=== PATIENT | female | born 1995 | race Caucasian/White ===

== ENCOUNTER 2019-12-05 08:18 | Emergency (ER) | payer OTHER, SELFPAY ==
[2019-12-05 08:43] VITALS: BP 125/84; PULSE 98; RESP 16; TEMP 36.8; O2SAT 98
--- NOTE | 2019-12-05 08:43 | ED.GENADULT ---
HPI - General Adult General Chief complaint: Upper Respiratory Infection Stated complaint: Possible Sinus Infection Time Seen by Provider: 12/05/19 08:55 Source: patient and RN notes reviewed Mode of arrival: ambulatory Limitations: no limitations History of Present Illness HPI narrative: This is a 24 years old female presented office for evaluation of possible sinus infection. Onset about 5 days ago. Symptoms include cough, congestion,and chest tightness when she cough.She has tried Mucinex, DayQuil, NyQuil with no relief. She does not smoke. Related Data Allergies Allergy/AdvReac Type Severity Reaction Status Date / Time No Known Allergies Allergy Verified 12/05/19 08:45 Review of Systems Review of Systems: Narrative: CONSTITUTIONAL: Denies fever; reports feeling malaise and achy EYES: Denies redness, discharge. ENT: Reports congestion, ears pressure CARDIOVASCULAR: Denies chest pain RESPIRATORY: Reports cough with pain in shoulder blade when she cough/takes a deep breathe GASTROINTESTINAL: Denies abdominal pain, nausea, vomiting, diarrhea. GENITOURINARY: Denies urinary symptoms or discharge SKIN: Denies rash MUSCULOSKELETAL: Denies acute back pain NEUROLOGIC: Denies lightheaded PMFSH Social History Social History (Updated 12/05/19 @ 08:57 by MANDEEP Byers) Smoking status: Never smoker Comments At time of signature, I agree with nursing past medical, surgical, social and family history. There is no relevant family history pertinent to the presenting complaint. Exam Narrative: Exam Narrative: GENERAL: This is a well-nourished, well-developed patient, in no apparent distress. EYES: Sclera clear/white. Vision is grossly intact. EARS: External ears normal, auditory canals clear and without drainage, TMs noted fluid level without perforation. Hearing grossly intact. NOSE: External nose normal with no obvious nasal discharge, nares without redness, no rhinorrhea. THROAT: Mucous membranes moist, posterior pharynx clear. NECK: Neck supple, non-tender without lymphadenopathy, masses or thyromegaly. CARDIOVASCULAR: Regular rate and rhythm without murmurs, gallops, or rubs. RESPIRATORY: Clear to auscultation except in the right lower lobe sound diminished. Breath sounds equal bilaterally. No wheezes, rales, or rhonchi. GASTROINTESTINAL: Abdomen soft, non-tender, nondistended. Bowel sounds are active. No hepato-splenomegaly, or palpable masses. No guarding. SKIN: warm, intact with no suspicious lesions or rash, good texture and turgor. NEURO: awake, alert, and oriented to person, place and time. There were no obvious focal neurologic abnormalities. Steady gait Conner Coma Scale Eye Opening: Spontaneous 4 Conner Coma Scale Motor: Obeys Commands 6 Conner Coma Scale Verbal: Oriented 5 Course Vital Signs Vital signs: Vital Signs Temperature 98.3 F 12/05/19 08:43 Pulse Rate 98 12/05/19 08:43 Respiratory Rate 16 12/05/19 08:43 Blood Pressure 125/84 12/05/19 08:43 Pulse Oximetry 98 12/05/19 08:43 Temperature 98.3 F 12/05/19 08:43 Pulse Rate 98 12/05/19 08:43 Respiratory Rate 16 12/05/19 08:43 Blood Pressure 125/84 12/05/19 08:43 Pulse Oximetry 98 12/05/19 08:43 Medical Decision Making MDM Narrative Medical decision making narrative: Discharge instructions reviewed with patient, as well as provided in writing per nursing staff. The instructions also include specific and strict return/GO TO THE ER as well as f/u information. All questions have been answered, and the patient deny any further questions with discharge and discharge plan. Differential Diagnosis Differential Diagnosis: pneumonia, Allergic Rhinitis, Upper respiratory cough syndrome, Pharyngitis, Sinusitis, Bronchitis, otitis media, viral URI, Asthma/reactive airway disease, influenza Vital Signs Vital Signs: Vital Signs Temperature 98.3 F 12/05/19 08:43 Pulse Rate 98 12/05/19 08:43 Respiratory R
== END 2019-12-05 09:29 | disposition home or self-care (01) ==
PROVIDERS: Emergency Provider Nurse Practitioner
DX: J06.9 Acute upper respiratory infection, unspecified (principal)
CPT/HCPCS: 99203; G0463

== ENCOUNTER 2021-01-01 08:12 | Emergency (ER) | payer OTHER, SELFPAY ==
--- NOTE | ~2021-01-01 | XR_ITS ---
EXAMINATION: XR chest 2V DATE: 01/01/2021 08:48 INDICATION: Cough. Tachycardia. TECHNIQUE: Frontal and lateral views of the chest were obtained. COMPARISON: None. FINDINGS: The chest demonstrates clear lungs without pneumonia, pleural effusion, or pneumothorax. Th e heart size is normal. There is likely a small hiatal hernia. IMPRESSION: 1. Small hiatal hernia. Reviewed, dictated and finalized at location A. IMPRESSION: 1. Small hiatal hernia.
--- NOTE | 2021-01-01 08:19 | ED.GENADULT ---
HPI - General Adult General Chief complaint: Upper Respiratory Infection Stated complaint: sinus inf,cough Time Seen by Provider: 01/01/21 08:39 Source: patient Mode of arrival: ambulatory Limitations: no limitations History of Present Illness HPI narrative: 25-year-old female patient presents to the [facility] with complaints of cold symptoms for the past week and half to 2 weeks. Patient states she has had some drainage to the back of her throat causing some throat irritation but denies sore throat. Denies any ear pain. Denies any fevers, body aches or chills. Patient states she has had a cough that is periodic throughout the day but denies any production. Patient denies any chest pain or shortness of breath. Patient states she is a little sore when she coughs in her chest but thinks is because she is just been coughing for a while. Patient states she has been taking [id number] Tylenol Cold and flu for symptoms. Patient states she has taken Claritin once or twice since her symptoms started. Patient denies any abdominal pain, nausea, vomiting or diarrhea. Patient was tested for Covid 2 to 3 days ago and states she was negative at that time. Related Data Home Medications Medication Instructions Recorded Confirmed buspirone 5 mg PO DAILY 01/01/21 01/01/21 diltiazem HCl 120 mg PO DAILY 01/01/21 01/01/21 metoprolol succinate 25 mg PO DAILY 01/01/21 01/01/21 omeprazole 20 mg PO BID 01/01/21 01/01/21 Allergies Allergy/AdvReac Type Severity Reaction Status Date / Time Pertussis Vaccines Allergy Rash Verified 01/01/21 08:29 Review of Systems Review of Systems: Narrative: CONSTITUTIONAL: Denies fever, chills, or sweats. EYES: Denies visual changes, redness, or discharge. ENT: Positive rhinorrhea, congestion, denies sore throat, or otalgia. CARDIOVASCULAR: Denies chest pain, palpitations, or edema. RESPIRATORY: Positive cough, denies dyspnea. GASTROINTESTINAL: Denies abdominal pain, nausea, vomiting, or diarrhea. GENITOURINARY: Denies dysuria or hematuria. SKIN: Denies rash or itching. MUSCULOSKELETAL: Denies back pain, joint pain, or myalgia. NEUROLOGIC: Denies headache, numbness, or weakness. PSYCHIATRIC: Denies anxiety or depression. [facility] Past Medical History Medical History (Updated 01/01/21 @ 09:06 by MANDEEP Mcgowan) Anxiety AVNRT (AV jerry re-entry tachycardia) GERD (gastroesophageal reflux disease) Tonsillectomy planned Surgical History Surgical History (Updated 01/01/21 @ 08:37 by MANDEEP Mcgowan) History of Social History Social History Smoking status: Never smoker Comments At the time of my signature I agree with nursing past medical history, surgical, social, and family history. There is no relevant family history pertinent to the presenting complaint. Exam Narrative: Exam Narrative: GENERAL: Well-appearing, well-nourished, and in no acute distress. HEAD: Normocephalic, atraumatic. EYES: PERRLA and EOMI. ENT: Nares with erythema and edema noted bilaterally, no rhinorrhea or epistaxis. Mucous membranes moist. Posterior pharynx no erythema or tonsillar enlargement. No exudates or lesions present. Bilateral TMs are clear with no erythema or foreign bodies in the canal. NECK: Supple. No lymphadenopathy CHEST: Clear to auscultation. No respiratory distress. Patient able talk clear complete sentences. No tripoding noted. HEART: Regular rate and rhythm. No murmur heard. Normal peripheral pulses. ABDOMEN: Soft, nontender, nondistended, normal active bowel sounds. EXTREMITIES: Normal range of motion. No edema. SKIN: Warm, dry, no rash. NEURO: No focal deficits. Alert and oriented x3. Course Reevaluation(s) Reevaluation #1: Reevaluated patient after her x-ray resulted. Notified her that her x-ray does show possible hiatal hernia however there is no obvious pneumonia noted. Discussed with her that her rapid Covid test
[2021-01-01 08:26] VITALS: BP 134/92; PULSE 124; RESP 20; TEMP 36.8; O2SAT 98
[2021-01-02 12:59] LABS: SARS-CoV-2 RNA PCR Negative
== END 2021-01-01 09:20 | disposition home or self-care (01) ==
PROVIDERS: Emergency Provider Nurse Practitioner Family
DX: J30.9 Allergic rhinitis, unspecified (principal); Z20.822 Contact with and (suspected) exposure to COVID-19; F41.9 Anxiety disorder, unspecified; K21.9 Gastro-esophageal reflux disease without esophagitis
CPT/HCPCS: 71046; 87426; 99213; C9803; G0463; U0003; U0005

== ENCOUNTER 2021-05-15 11:10 | Emergency (ER) | payer OTHER, SELFPAY ==
[2021-05-15 11:17] VITALS: BP 139/80; PULSE 95; RESP 16; TEMP 37.1; O2SAT 100
--- NOTE | 2021-05-15 12:08 | ED.FEMALEGU ---
HPI - Female Genitourinary General Chief complaint: Urogenital-Female Stated complaint: Possible UTI Time Seen by Provider: 05/15/21 12:10 Source: patient, RN notes reviewed and old records reviewed Mode of arrival: ambulatory Limitations: no limitations History of Present Illness HPI Narrative: 26 year old female who presents to [facility] care with 2 day history of urinary pain and burning, with urgency and decrease output.Patient states that she took some Azo yesterday for her urinary discomfort and has been drinking cranberry juice. Patient states that she has some lower abdominal discomfort and some right sided back pain also, denies any fevers, chills or sweats. Patient denies any vaginal discharge, bleeding or itching, no concern for STD exposure. MD elicited complaint: dysuria, UTI and flank pain (right) Related Data Home Medications Medication Instructions Recorded Confirmed omeprazole 20 mg PO BID PRN 01/01/21 05/15/21 cetirizine [Zyrtec] 10 mg PO DAILY PRN 05/15/21 05/15/21 flecainide 100 mg PO Q12H 05/15/21 05/15/21 fluoxetine 10 mg PO DAILY 05/15/21 05/15/21 Allergies Allergy/AdvReac Type Severity Reaction Status Date / Time Pertussis Vaccines Allergy Rash Verified 01/01/21 08:29 Review of Systems Review of Systems: Narrative: CONSTITUTIONAL: Denies fever, chills, or sweats. EYES: Denies visual changes, redness, or discharge. ENT: Denies rhinorrhea, congestion, sore throat, or otalgia. CARDIOVASCULAR: Denies chest pain, palpitations, or edema. RESPIRATORY: Denies cough or dyspnea. GASTROINTESTINAL: Positive lower abdominal pain,no nausea, vomiting, or diarrhea. GENITOURINARY: Positive for dysuria or hematuria. SKIN: Denies rash or itching. MUSCULOSKELETAL: Reports right sided back pain,no joint pain, or myalgia. NEUROLOGIC: Denies headache, numbness, or weakness. PSYCHIATRIC:Positive history of anxiety or depression. All systems reviewed & are unremarkable except as noted in HPI and below PMFSH Past Medical History Medical History (Updated 05/16/21 @ 14:52 by Halie Doyle NP) Anxiety AVNRT (AV jerry re-entry tachycardia) GERD (gastroesophageal reflux disease) Surgical History Surgical History (Updated 05/16/21 @ 14:47 by Halie Doyle NP) History of History of cholecystectomy History of tonsillectomy Family History Family History (Updated 05/16/21 @ 14:48 by Halie Doyle NP) Other No significant family history Social History Social History (Updated 05/16/21 @ 14:49 by Halie Doyle NP) Smoking status: Never smoker Alcohol intake: current Alcohol use details: rare social Substance use: never Living arrangements: with family Gender identity (if verbalized by the patient): Female Comments At time of signature, agree with nursing past medical, surgical, social and family history. There is no relevant family history pertinent to the presenting complaint Exam Narrative: Exam Narrative: GENERAL: Well-appearing, well-nourished, and in no acute distress. HEAD: Normocephalic, atraumatic. EYES: PERRLA and EOMI. ENT: Nares clear, no rhinorrhea or epistaxis. Mucous membranes moist. NECK: Supple.no lymphadenopathy CHEST: Clear to auscultation. No respiratory distress.SAO2 100% on room air HEART: Regular rate and rhythm. No murmur heard. Normal peripheral pulses. ABDOMEN: Soft, tender suprapubic, nondistended, normal active bowel sounds, right flank pain on exam, negative for McBurney point tenderness, positive dysuria with microscopic hematuria. EXTREMITIES: Normal range of motion. No edema. SKIN: Warm, dry, no rash. NEURO: No focal deficits. Alert and oriented x3. Course Vital Signs Vital signs: Vital Signs Temperature 37.1 C 05/15/21 11:17 Pulse Rate 95 05/15/21 11:17 Respiratory Rate 16 05/15/21 11:17 Blood Pressure 139/80 05/15/21 11:17 Pulse Oximetry 100 05/15/21 11:17 Temperature 37.1 C 05/15/21 11:17 Pulse Rat
== END 2021-05-15 12:22 | disposition home or self-care (01) ==
PROVIDERS: Emergency Provider Registered Nurse
DX: N39.0 Urinary tract infection, site not specified (principal); G21.9 Secondary parkinsonism, unspecified; F41.9 Anxiety disorder, unspecified
CPT/HCPCS: 81003; 87077; 87086; 87088; 87186; 99213; G0463

== ENCOUNTER 2021-07-05 08:26 | Emergency (ER) | payer OTHER, SELFPAY ==
--- NOTE | 2021-07-05 08:31 | ED.SOB ---
HPI - SOB/Dyspnea General Chief Complaint: Upper Respiratory Infection Stated Complaint: SOB, tightness of chest, rapid Heart rate Time Seen by Provider: 07/05/21 08:50 Source: patient and RN notes reviewed Mode of arrival: ambulatory Limitations: no limitations History of Present Illness HPI Narrative: 26-year-old female presents with concern for episode of shortness of breath, tachycardia, chest pain. 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 Reports typical episodes last only several minutes, reports she had an episode just prior to arrival that lasted nearly 10 minutes. Reports she was at a grocery store, felt the episode coming on. Reports she drove here and on the way the SVT stopped. Reports she tried doing breathing exercises. She denies current fast heart rate, shortness of breath, chest pain. Reports she has an appointment today with an transfer operator to discuss a cardiac ablation. MD elicited complaint: shortness of breath Related Data Home Medications Medication Instructions Recorded Confirmed omeprazole 20 mg PO BID PRN 01/01/21 05/15/21 cetirizine [Zyrtec] 10 mg PO DAILY PRN 05/15/21 05/15/21 flecainide 100 mg PO Q12H 05/15/21 05/15/21 fluoxetine 10 mg PO DAILY 05/15/21 05/15/21 Allergies Allergy/AdvReac Type Severity Reaction Status Date / Time Pertussis Vaccines Allergy Rash Verified 01/01/21 08:29 Review of Systems Review of Systems: CONSTITUTIONAL: Denies malaise, chills, sweats, or fever. CARDIOVASCULAR: Denies current chest pain, palpitations, or edema. RESPIRATORY: Denies cough or dyspnea. PSYCHIATRIC: Denies anxiety All systems reviewed & are unremarkable except as noted in HPI and below PMFSH Past Medical History Medical History (Updated 07/05/21 @ 09:04 by Padmini Wayne NP) Anxiety AVNRT (AV jerry re-entry tachycardia) GERD (gastroesophageal reflux disease) Surgical History Surgical History (Updated 05/16/21 @ 14:47 by Halie Doyle NP) History of History of cholecystectomy History of tonsillectomy Family History Family History (Updated 05/16/21 @ 14:48 by Halie Doyle NP) Other No significant family history Social History Social History (Updated 05/16/21 @ 14:49 by Halie Doyle NP) Smoking status: Never smoker Alcohol intake: current Alcohol use details: rare social Substance use: never Gender identity (if verbalized by the patient): Female Comments At time of signature, agree with nursing past medical, surgical, social and family history. There is no relevant family history pertinent to the presenting complaint Exam Narrative: GENERAL: Well-appearing, well-nourished, and in no acute distress. HEAD: Normocephalic EYES: PERRLA, conjunctivae clear ENT: Mucous membranes moist. NECK: Supple. CHEST: Clear to auscultation, breath sounds equal. No wheezing, rhonchi, rales, or stridor. No respiratory distress, speaks in full sentences. HEART: Regular rate and rhythm. No murmur heard. SKIN: Warm, dry, no visible rash. NEURO: Alert and oriented x3. PSYCH: Tearful mood and normal affect Course Course Emergency Course: Discussed transfer to emergency department for further evaluation. Patient chooses at this time to not seek care in the emergency department. She understands reasons to go to the emergency department if symptoms return. Discussed Patient is aware of, understands and agrees to treatment plan. Anticipatory guidance given. Patient agrees to follow-up as directed and is aware of reasons to seek care at the emergency department. Portions of this record may have been created with voice recognition software Vital Signs Vital signs: Reviewed. MDM - SOB/Dyspnea MDM Narrative Medical decision making narrative: Exam findings and EKG show no acute concerns or changes; patient is non-toxic appearing and is in no distress. Pat
[2021-07-05 08:33] VITALS: BP 143/78; PULSE 80; RESP 18; TEMP 36.6; O2SAT 100
--- NOTE | 2021-07-05 08:52 | ECG_ITS ---
Measurements Intervals [place] Rate: 81 P: 18 MT: 153 QRS: 23 QRSD: 87 T: 32 QT: 343 QTc: 398 Interpretive Statements SINUS RHYTHM BASELINE ARTIFACT- I, II, III, AVR, AVL, AVF, V1-V3 NORMAL ECG Electronically Signed On 07-05-2021 9:57:15 CDT by Jeremy Dan D.O.
== END 2021-07-05 09:10 | disposition home or self-care (01) ==
PROVIDERS: Emergency Provider Nurse Practitioner
DX: I47.1 Supraventricular tachycardia (principal); R06.02 Shortness of breath; R07.9 Chest pain, unspecified
CPT/HCPCS: 93005; 99213; G0463

== ENCOUNTER 2022-01-16 18:57 | Emergency (ER) | payer OTHER, SELFPAY ==
[2022-01-16 19:09] VITALS: BP 142/86; PULSE 74; RESP 18; TEMP 36.7; O2SAT 100
--- NOTE | 2022-01-16 20:03 | ED.BACK ---
HPI - Back Pain/Injury General Chief Complaint: Back Pain/Injury Stated Complaint: left arm injury Time Seen by Provider: 01/16/22 20:03 Source: patient and RN notes reviewed Mode of arrival: ambulatory Limitations: no limitations History of Present Illness HPI Narrative: 18-year-old female presents concern for left shoulder area pain, stinging that radiates down the left arm and she denies any direct injury or trauma. She reports symptoms started when she was pushing up a heavy load of laundry upstairs and she felt a stinging pain. She did not hyperextend or twist her arm or shoulder. She denies any intervention since then. She reports her digits 4 and 5 of the hand feel like they are asleep . MD elicited complaint: back pain Related Data Home Medications Medication Instructions Recorded Confirmed omeprazole 20 mg PO BID PRN 01/01/21 01/16/22 fluoxetine 10 mg PO DAILY 05/15/21 01/16/22 Allergies Allergy/AdvReac Type Severity Reaction Status Date / Time Pertussis Vaccines Allergy Rash Verified 01/16/22 19:48 Review of Systems Review of Systems: CONSTITUTIONAL: Denies malaise, chills, sweats, or fever. CARDIOVASCULAR: Denies chest pain, palpitations, or edema. RESPIRATORY: Denies cough or dyspnea. SKIN: Denies rash or itching. MUSCULOSKELETAL: Reports left shoulder pain that radiates down the arm and hand causing tingling in the hand NEUROLOGIC: Denies weakness, or headache. All systems reviewed & are unremarkable except as noted in HPI and below PMFSH Past Medical History Medical History (Updated 01/16/22 @ 20:07 by Padmini Wayne NP) Anxiety AVNRT (AV jerry re-entry tachycardia) GERD (gastroesophageal reflux disease) Surgical History Surgical History (Updated 05/16/21 @ 14:47 by Halie Doyle NP) History of History of cholecystectomy History of tonsillectomy Family History Family History (Updated 05/16/21 @ 14:48 by Halie Doyle NP) Other No significant family history Social History Social History (Updated 05/16/21 @ 14:49 by Halie Doyle NP) Smoking status: Never smoker Alcohol intake: current Alcohol use details: rare social Substance use: never Gender identity (if verbalized by the patient): Female Comments At time of signature, agree with nursing past medical, surgical, social and family history. There is no relevant family history pertinent to the presenting complaint Exam Narrative: GENERAL: Well-appearing, well-nourished, and in no acute distress. HEAD: Normocephalic, atraumatic. EYES: PERRLA, conjunctivae clear NECK: Supple. CHEST: Speaks in full sentences. No respiratory distress. HEART: Regular rate and rhythm. Normal and equal peripheral pulses. EXTREMITIES: Right upper extremity has normal strength and sensation, normal range of motion. No edema or ecchymosis. 5/5 strength with shoulder abduction, abduction, arm pain and extension and flexion. Normal sensation with sensitivity to light touch and pain. No point tenderness. No open wounds, no skin tenting, no devitalized tissue or atrophy, no trophic changes, no obvious deformity, alignment normal, nearby joints and structures intact. Distal pulses palpable and equal bilaterally, skin warm, dry, pink. Capillary refill less than 3 seconds. SKIN: Warm, dry, no rash. NEURO: Alert and oriented x3. PSYCH: Normal mood and affect Course Course Emergency Course: Patient is aware of diagnosis, understands and agrees to treatment plan. Anticipatory guidance given. Patient agrees to follow-up as directed and is aware of reasons to seek care at the emergency department. Portions of this record may have been created with voice recognition software Level of Care: Express Care Visit Vital Signs Vital signs: Vital Signs Temperature 98.0 F 01/16/22 19:09 Pulse Rate 74 01/16/22 19:09 Respiratory Rate 18 01/16/22 19:09 Blood Pressure 142/86 H 01/16/22 19:09 Pulse Oximetry 100 0
== END 2022-01-16 20:11 | disposition home or self-care (01) ==
PROVIDERS: Emergency Provider Nurse Practitioner
DX: M62.838 Other muscle spasm (principal); K21.9 Gastro-esophageal reflux disease without esophagitis; F41.9 Anxiety disorder, unspecified
CPT/HCPCS: 99213; G0463

== ENCOUNTER 2024-07-22 08:33 | Emergency (ER) | payer OTHER, SELFPAY ==
[2024-07-22 08:40] VITALS: BP 129/77; PULSE 87; RESP 16; TEMP 36.8; O2SAT 100
--- NOTE | 2024-07-22 09:04 | ED.URI ---
HPI - URI/Sore Throat General Chief Complaint: Upper Respiratory Infection Stated Complaint: head congestion/throat Time Seen by Provider: 07/22/24 09:04 Source: patient Mode of arrival: ambulatory Limitations: no limitations History of Present Illness HPI Narrative: 29-year-old female presents with complaint of sore throat, nasal congestion, postnasal drainage, sinus pressure, sinus headaches, left ear pain for 10 days. Taking [id number] allergy and sinus medication with no relief of symptoms. Afebrile. All systems reviewed and negative except as noted above. Related Data Allergies Allergy/AdvReac Type Severity Reaction Status Date / Time Pertussis Vaccines Allergy Rash Verified 07/22/24 09:13 Review of Systems Review of Systems: CONSTITUTIONAL: Denies fever, chills, or sweats. reports fatigue. EYES: Denies visual changes, redness, or discharge. ENT: Reports rhinorrhea, congestion, sore throat, left ear pain CARDIOVASCULAR: Denies chest pain, palpitations, or edema. RESPIRATORY: Denies cough or dyspnea. GASTROINTESTINAL: Denies abdominal pain, nausea, vomiting, or diarrhea. GENITOURINARY: Denies dysuria or hematuria. SKIN: Denies rash or itching. MUSCULOSKELETAL: Denies back pain, joint pain, or myalgia. NEUROLOGIC: Denies headache, numbness, or weakness. PSYCHIATRIC: Denies anxiety or depression. All other systems reviewed are negative, except as documented in HPI. [facility] Past Medical History Medical History (Updated 07/22/24 @ 09:21 by Norma Fernandez NP) Anxiety AVNRT (AV jerry re-entry tachycardia) GERD (gastroesophageal reflux disease) Surgical History Surgical History (Updated 05/16/21 @ 14:47 by Halie Doyle NP) History of History of cholecystectomy History of tonsillectomy Family History Family History (Updated 05/16/21 @ 14:48 by Halie Doyle NP) Other No significant family history Social History Social History (Updated 05/16/21 @ 14:49 by Halie Doyle NP) Smoking status: Never smoker Alcohol intake: current Alcohol use details: rare social Substance use: never Living arrangements: with family Gender identity (if verbalized by the patient): Female Comments At time of signature, agree with nursing past medical, surgical, social and family history. There is no relevant family history pertinent to the presenting complaint. Exam Narrative: GENERAL: This is a well-nourished, well-developed patient, Patient ill-appearing but no acute distress HEAD: normocephalic, atraumatic. EYES: PERRL. Sclera clear/white. Vision is grossly intact. EARS: External ears normal, auditory canals clear and without drainage, Fluid bilateral TMs without erythema. No perforation bilaterally.. Hearing grossly intact. NOSE: External nose normal with congestion, purulent nasal drainage, erythema to bilateral nares. Bilateral maxillary sinus tenderness on palpation. THROAT: Mucous membranes moist, posterior pharynx clear. NECK: Neck supple, non-tender without lymphadenopathy, masses or thyromegaly. CARDIOVASCULAR: Regular rate and rhythm without murmurs, gallops, or rubs. RESPIRATORY: Clear to auscultation. Breath sounds equal bilaterally. No wheezes, rales, or rhonchi. SKIN: warm, Dry, intact with no suspicious lesions or rash, good texture and turgor. NEURO: awake, alert, and oriented to person, place and time. There were no obvious focal neurologic abnormalities. EXTREMITIES: No joint tenderness, effusion, or edema noted. Course Course Level of Care: Express Care Visit Vital Signs Vital signs: Vital Signs Temperature 36.8 C 07/22/24 08:40 Pulse Rate 87 07/22/24 08:40 Respiratory Rate 16 07/22/24 08:40 Blood Pressure 129/77 07/22/24 08:40 Pulse Oximetry 100 07/22/24 08:40 Oxygen Delivery Room Air 07/22/24 08:40 Temperature 36.8 C 07/22/24 08:40 Pulse Rate 87 07/22/24 08:40 Respiratory Rate 16
[2024-07-22 09:18] LABS: EDSTREPNEGPOS1 Negative (Negative)
== END 2024-07-22 09:36 | disposition home or self-care (01) ==
PROVIDERS: Emergency Provider Nurse Practitioner Family; PCP Family Medicine
DX: J01.90 Acute sinusitis, unspecified (principal); K21.9 Gastro-esophageal reflux disease without esophagitis
CPT/HCPCS: 87081; 87880; 99213; G0463

== ENCOUNTER 2025-01-04 15:47 | Emergency (ER) | payer OTHER, SELFPAY ==
[2025-01-04 16:13] VITALS: BP 153/90; PULSE 76; RESP 17; TEMP 36.6; O2SAT 100
--- OUTSIDE RECORDS SUMMARY | 2025-01-04 18:23 | XMS_ITS ---
Author Organization [facility] Address [address] [place] [address] Phone Care Team Providers Care Lithopress Operator Name Role Phone Shashi Patel MD Primary Care Provider [phone] [facility] Status:Enrolled (Active) Start date:11/18/2024 Enrollment date:11/18/2024 Related social drivers of health:Intimate Partner Violence, Social Connections, Alcohol Use, Tobacco Use, Financial Resource Strain,Depression, Stress, Physical Activity, Food Insecurity, Transportation Needs, Housing Stability, Utilities Continued Care and Services Coordination
--- OUTSIDE RECORDS SUMMARY | 2025-01-04 18:23 | XMS_ITS | Clinical Summary ---
Author Organization [facility] Address [address] [place] [address] Care Team Providers Care Supervisor Wound Name Role Phone Caty Tristna PT Unavailable UnavailEllen Gutiérrez FAST FOOD SUPERVISOR Unavailable Shashi Patel MD Primary Care Provider [phone] Allergies Active Allergy Reactions Criticality Noted Date Comments Pertussis Vaccine,Adsorbed Unknown,Anaphylaxis High 11/19/2014 Medications cetirizine 10 mg capsule Take 1 tablet by mouth daily as needed Active acetaminophen (TYLENOL) 500 mg tablet Take 1 tablet (500 mg total) by mouth every 6 (six) hours as needed for pain Active escitalopram (LEXAPRO) 10 mg tabletIndication s:Seasonal affective disorder Take 1 tablet (10 mg total) by mouth daily 30 tablet 3 09/29/2024 Active Active Problems Problem Noted Date Diagnosed Date Seasonal affective disorder 09/29/2024 Rectal bleeding 12/27/2023 Neck muscle spasm 12/31/2022 Assessment & Plan (12/31/2022 9:50 PM CDT): Trial cyclobenzaprine PRN (different muscle relaxant) Referral back to PT for neck program We may need to move up health information management director follow up if not improving on the SVT symptoms/episodes We might consider trial of gabapentin if the PT and muscle relaxant isn't helpful; also trigger point injections could be considered Encounter to establish care with new doctor 07/22 Assessment & Plan (08/11/2022 10:19 AM CDT): A(n) initial well visit to establish care has been performed today. Ann Mercer is up to date on screening tests. She is in need of None- no screening indicated at this time. She is not up to date on needed preventative vaccinations; She is in need of Tdap/Td. Continuing current regimen Noted that vitamin D is in normal range now, can concsidr cutting supplement back to 1000 international units daily Add vitamin B12 supplement (1000 mcg daily) Stay hydrated Irritable bowel syndrome wit h both constipation and diarrhea 07/20/2022 Dyspepsia 07/20/2022 Gastroesophageal reflux disease without esophagi tis 04/12/2022 Assessment & Plan (11/11/2022 2:04 PM OFFICE MACHINERY OR EQUIPMENT INSTALLER): Continuing protonix LUQ pain 04/12/2022 Decreased appetite 04/12/2022 S/P cholecystectomy 04/12/2022 Alternating constipation and diarrhea 04/12/2022 Dysmenorrhea 02/13/2022 Seasonal allergic rhinitis due to pollen 022 Assessment & Plan (01/24/2022 1:25 PM CDT): HPI: Condition is not at/near goal A&P: Discussed environmental controls No smoking around patient, no animals in bedroom, keep windows closed, no hanging clothes on the line Take zyrtec/claritin/luis manuel in the am Saline rinse in the am Flonase 1 sprays each nostril, aim away from cartilage, spray once-baby sniff, switch to the other nostril and repeat. Saline rinse about 15 min before bed Flonase 1 sprays each nostril, aim away from cartilage, spray once-baby sniff, switch to the other nostril and repeat. If working or playing outside, may need to do saline rinses when coming in and change clothes right away Recommend staying on the above treatment from the beginning of December to Come off of meds if possible during the summer Then restart on meds mid to late May until Thanksgiving Come off of meds if possible during the winter Abscess 01/24/2022 Assessment & Plan (01/24/2022 1:25 PM CDT): Condition is recurrent. Use hibiclenz weekly Vitamin D deficiency 01/24/2022 Assessment & Plan (11/11/2022 2:04 PM OFFICE MACHINERY OR EQUIPMENT INSTALLER): Continuing vitamin D supplement Assessment & Plan (01/24/2022 1:26 PM CDT): HPI: Condition is stable A&P: Discussed/ordered labs, encouraged healthy, low carbohydrate lifestyle and at least 150min/week of exercise, continue on vit d3 5000 units daily Obstructive sleep apnea 12/29/2021 Assessment & Plan (01/24/2022 1:20 PM CDT): cpap is on backorder She is going through [facility] sleep center PSVT (paroxysmal supraventricular tachycardia) 0 07/05/2021 Overview (07/05/2021): Added automatically from request for surgery [id number] Assessment & Plan (01/24/2022 1:21 PM CDT): HPI: Condition is stable pt had ablation, she sometimes feels some palpitations. A&P: Discussed/ordered labs, encouraged healthy, low carbohydrate lifestyle and at least 150min/week of exercise, continue seeing Dr. Foote pt no longer on flecainide. But if she starts back with symptoms, she would need to restart it. Assessment & Plan (10/26/2021 8:01 AM OFFICE MACHINERY OR EQUIPMENT INSTALLER): HPI: Condition is stable Patient had ablation A&P: Discussed/ordered labs, encouraged healthy, low carbohydrate lifestyle and at least 150min/week of exercise, continue Seen Dr. Foote cardiology ? Is patient no longer on flecainide Hypertriglyceridemia 04/11/2021 Assessment & Plan (11/11/2022 2:04 PM OFFICE MACHINERY OR EQUIPMENT INSTALLER): Wanting to try and resume Vascepa I do note the triglycerides have improved nicely BP is well controlled Continue efforts at intermittent fasting, exercise Assessment & Plan (01/24/2022 1:22 PM CDT): HPI: Condition is stable A&P: Discussed/ordered labs, encouraged healthy, low carbohydrate lifestyle and at least 150min/week of exercise, currently on fish oil Assessment & Plan (10/26/2021 7:58 AM OFFICE MACHINERY OR EQUIPMENT INSTALLER): HPI: Condition is stable A&P: Discussed/ordered labs, encouraged healthy, low carbohydrate lifestyle and at least 150min/week of exercise, Currently on no medication for this Gastroesophageal reflux dise ase with esophagitis without hemorrhage 12/01/2020 Overview (12/12/2020): Added automatically from request for surgery [id number] Assessment & Plan (04/10/2022 4:05 PM CDT): Not well controlled has appointment scheduled with GI - but patient has been very uncomfortable - has made diet changes and used otc ppi with no improvement. Will send for pantoprazole 40 mg bid and carafate to providfe some relief and hopefully protection. May have a stomach ulcer from chronic nsaid use Assessment & Plan (01/24/2022 1:23 PM CDT): HPI: Condition is stable On no meds at this time, may take an occasional pepto bismol, encouraged healthy diet and exercise Avoid trigger foods including: carbonated beverages, caffeine, spicy, fried foods, tomatoes, cucumbers, mint, and acidic fruits/juices like orange/lemon/grapefruit. Avoid eating/drinking anything for at least 2 hours before bed. Sleep with bed propped. Assessment & Plan (10/26/2021 7:59 AM OFFICE MACHINERY OR EQUIPMENT INSTALLER): HPI: Condition is stable no longer taking omeprazole 20 mg daily, encouraged healthy diet and exercise Avoid trigger foods including: carbonated beverages, caffeine, spicy, fried foods, tomatoes, cucumbers, mint, and acidic fruits/juices like orange/lemon/grapefruit. Avoid eating/drinking anything for at least 2 hours before bed. Sleep with bed propped. Assessment & Plan (01/04/2021 8:22 AM CDT): Condition is improving Had EGD this week, GI is keeping her on omeprazole 20mg daily. She is being scheduled to get gallbladder removed. Reviewed EGD Anxiety 11/21/2020 Assessment & Plan (01/24/2022 12:08 PM CDT): Patient reiterated no suicidal thoughts at this time; take medication as directed; contact 911 and go to the ER if becomes suicidal; discussed side effects of medication with patient; encouraged healthy diet and exericise; encouraged patient to see a counselor HPI: Condition is stable A&P: Discussed/ordered labs, encouraged healthy, low carbohydrate lifestyle and at least 150min/week of exercise, continue on prozac 20mg daily, continue to see Dr. Santamaria psych at [facility] Assessment & Plan (10/26/2021 7:56 AM OFFICE MACHINERY OR EQUIPMENT INSTALLER): Patient reiterated no suicidal thoughts at this time; take medication as directed; contact 911 and go to the ER if becomes suicidal; discussed side effects of medication with patient; encouraged healthy diet and exericise; encouraged patient to see a counselor HPI: Condition is stable A&P: Discussed/ordered labs, encouraged healthy, low carbohydrate lifestyle and at least 150min/week of exercise, continue Seeing Dr. Santamaria [facility], Continue on Prozac 20 mg daily Assessment & Plan (07/26/2021 1:47 PM CDT): Patient reiterated no suicidal thoughts at this time; take medication as directed; contact 911 and go to the ER if becomes suicidal; discussed side effects of medication with patient; encouraged healthy diet and exericise; encouraged patient to see a counselor HPI: Condition is stable has had a bit more anxiety with having to get cardiac ablation next week. A&P: Discussed/ordered labs, encouraged healthy, low carbohydrate lifestyle and at least 150min/week of exercise, continue seeing Dr. Santamaria (psych at [facility]), Prozac daily-may take 20 mg daily except for 3 days before and 3 days after, may take up to 40 mg on those days. Currently off of the buspirone as their was a drug/drug interaction with her flecainide. Continue follow-up with Psychiatry Assessment & Plan (05/19/2021 9:35 AM CDT): Patient reiterated no suicidal thoughts at this time; take medication as directed; contact 911 and go to the ER if becomes suicidal; discussed side effects of medication with patient; encouraged healthy diet and exericise; encouraged patient to see a counselor HPI: Condition is not at goal. A&P: Discussed/ordered labs, encouraged healthy, low carbohydrate lifestyle and at least 150min/week of exercise, continue seeing Dr. Santamaria (psych at [facility]),buspirone 10 mg as needed up to 3 times a day. Take 20mg daily except for 3 days before and 3 days after menses. On those days, take 40mg. Continue following up with psychiatrist Assessment & Plan (04/07/2021 9:35 AM CDT): Patient reiterated no suicidal thoughts at this time; take medication as directed; contact 911 and go to the ER if becomes suicidal; discussed side effects of medication with patient; encouraged healthy diet and exericise; encouraged patient to see a counselor HPI: Condition is stable pt seeing Dr. Santamaria (psych at [facility]) A&P: Discussed/ordered labs, encouraged healthy, low carbohydrate lifestyle and at least 150min/week of exercise, continue on Fluoxetine 20 mg daily and buspirone 10 mg as needed up to 3 times daily Continue following up with psychiatrist Assessment & Plan (01/04/2021 8:18 AM CDT): Patient reiterated no suicidal thoughts at this time; take medication as directed; contact 911 and go to the ER if becomes suicidal; discussed side effects of medication with patient; encouraged healthy diet and exericise; encouraged patient to see a counselor HPI: Condition is stable prozac has been helping with obsessing over her heart and bp, when she notices she is getting over heightened she takes the buspirone and it helps. She has been taking it at bed and it helps her go to sleep, but not stay asleep. A&P: Discussed/ordered labs, encouraged healthy, low carbohydrate lifestyle and at least 150min/week of exercise, continue on fluoxetine 10mg and buspirone 5mg as needed during the day, but take 2 tablets for a total of 10mg at bedtime to help sleep. seeing psych 02/03/2021 Assessment & Plan (11/21/2020 9:23 AM OFFICE MACHINERY OR EQUIPMENT INSTALLER): Condition is worsening. Will start on daily anxiety medication, Fluoxetine 10mg and Buspar prn until Fluoxetine can take full effect. Patient also encouraged to do counseling. She is going to touch base with Courtney and was also given list of counselors today in office. Keep psych appointment in January, will try to stabilize the anxiety until that appointment. Also, keep follow ups with cardio. Follow up with PCP in 4-6 weeks, sooner if needed. She is not taking the Lorazepam rx'ed from ER, was going to place patient on Lexapro but it interacted with her Omeprazole (prolonged QT interval, tachycardia, etc). Denies SI. H/O recurrent urinary tract infection 09/19/2020 Class 3 severe obesity due t o excess calories without serious comorbidity with body mass index (BMI) of 40.0 to 44.9 in adult 08/30/2020 Assessment & Plan (09/29/2024 4:04 PM OFFICE MACHINERY OR EQUIPMENT INSTALLER): BMI Follow-up includes: nutrition counseling, exercise counseling, and education provided. Assessment & Plan (06/18/2023 1:36 PM CDT): Healthy, low carbohydrate lifestyle and exercise for 150min/week recommended Assessment & Plan (04/11/2023 3:18 PM CDT): CHIP program information provided. Assessment & Plan (07/25/2022 1:39 PM CDT): HPI: Condition is not at/near goal goal BMI <30 A&P: Healthy, high-protein, lower carbohydrate, lower fat lifestyle and exercise for 150min/week recommended Recommend tracking everything you put in your mouth on an kojo like [employer] Lower carb substitutions: [employer] carries a zero net carb bread If you are looking for whole potatoes, like to use in soup or new potato shape/flavor, radishes are a great replacement If you are looking for mashed potatoes, riced cauliflower in the frozen bag section are a great replacement For pasta, try using zucchini noodles, lay them out on a cookie sheet and pat dry with a tea towel to try to remove as much moisture as possible. Heat your pasta sauce on the stove and put the noodles in for 30-45 seconds. If you leave them in much longer they will become mushy [place] and/or coconut flour instead of regular flour For pizza dough, try fathead pizza dough recipe online. To get a crispy crust, bake on one side for 8-12 min, then flip over and bake on the other side for 8-12 min, then put toppings on and bake until the cheese on top of pizza melts chaffles recipe online For ice cream, try the brand Enlightened To replace coffee creamer and make it low carb, use heavy creamer with sugar free Torani sweetener For chips, try Whisps or pork rinds For yogurt, try Two Good australian yogurt Use Juli for recipe ideas. Type in low carb... Hand Measurements: A fist or cupped hand = 1 cup 1 cup = 1 -2 servings of fruit juice 1 oz. of cold cereal 2 oz. of cooked cereal, rice or pasta 8 oz. of milk or yogurt A thumb = 1 oz. of cheese Consuming low-fat cheese helps you meet the required servings from the milk, yogurt and cheese group. 1 oz. of low-fat cheese counts as 8 oz. of milk or yogurt. Handful = 1-2 oz. of snack food Thumb tip = 1 teaspoon Keep high-fat foods, such as peanut butter and mayonnaise, at a minimum. One teaspoon is equal to the end of your thumb, from the knuckle up. Three teaspoons equals 1 tablespoon. Palm = 3 oz. of meat Choose lean poultry, fish, shellfish and beef. One palm size portion equals 3 oz. for an adult and 1 -2 oz. for a child under 5. 1 tennis ball or a fist= 1/2 cup of fruit and vegetables Healthy diets include a variety of colorful fruits and vegetables every day. The secret to serving size is in your hand. Snacking can add up. Remember, 1 handful equals 1 oz. of nuts and small candies. For chips and pretzels, 2 handfuls equals 1 oz. Because hand sizes vary, compare your fist size to an actual measuring cup. Assessment & Plan (04/10/2022 4:05 PM CDT): BMI Follow-up includes: nutrition counseling and exercise counseling. Assessment & Plan (01/24/2022 12:16 PM CDT): HPI: Condition is not at/near goal goal BMI <30 A&P: Healthy, high-protein, lower carbohydrate, lower fat lifestyle and exercise for 150min/week recommended Substitutions: Recommend tracking everything you put in your mouth on an kojo like [employer] or [employer] carries a zero net carb bread If you are looking for whole potatoes, like to use in soup or new potato shape/flavor, radishes are a great replacement If you are looking for mashed potatoes, riced cauliflower in the frozen bag section are a great replacement For pasta, try using zucchini noodles, lay them out on a cookie sheet and pat dry with a tea towel to try to remove as much moisture as possible. Heat your pasta sauce on the stove and put the noodles in for 30-45 seconds. If you leave them in much longer they will become mushy [place] and/or coconut flour instead of regular flour For pizza dough, try fathead pizza dough recipe online. To get a crispy crust, bake on one side for 8-12 min, then flip over and bake on the other side for 8-12 min, then put toppings on and bake until the cheese on top of pizza melts chaffles recipe online For ice cream, try the brand Enlightened To replace coffee creamer and make it low carb, use heavy creamer with sugar free Torani sweetener For chips, try Whisps or pork rinds For yogurt, try Two Good australian yogurt Use Pinterest for recipe ideas. Type in low carb... Assessment & Plan (10/30/2021 11:40 AM OFFICE MACHINERY OR EQUIPMENT INSTALLER): HPI: Condition is not at/near goal goal BMI <30 A&P: Healthy, high-protein, lower carbohydrate, lower fat lifestyle and exercise for 150min/week recommended Substitutions: Recommend tracking everything you put in your mouth on an kojo like [employer] or [employer] carries a zero net carb bread If you are looking for whole potatoes, like to use in soup or new potato shape/flavor, radishes are a great replacement If you are looking for mashed potatoes, riced cauliflower in the frozen bag section are a great replacement For pasta, try using zucchini noodles, lay them out on a cookie sheet and pat dry with a tea towel to try to remove as much moisture as possible. Heat your pasta sauce on the stove and put the noodles in for 30-45 seconds. If you leave them in much longer they will become mushy [place] and/or coconut flour instead of regular flour For pizza dough, try fathead pizza dough recipe online. To get a crispy crust, bake on one side for 8-12 min, then flip over and bake on the other side for 8-12 min, then put toppings on and bake until the cheese on top of pizza melts chaffles recipe online For ice cream, try the brand Enlightened To replace coffee creamer and make it low carb, use heavy creamer with sugar free Torani sweetener For chips, try Whisps or pork rinds For yogurt, try Two Good australian yogurt Use Pinterest for recipe ideas. Type in low carb... Assessment & Plan (10/26/2021 1:42 PM OFFICE MACHINERY OR EQUIPMENT INSTALLER): HPI: Condition is improving, but not at goal goal BMI <30 Pt is eating more low carb lifestyle. She has lost 3 pounds since the first of the year. A&P: Healthy, high-protein, lower carbohydrate, lower fat lifestyle and exercise for 150min/week recommended Substitutions: Recommend tracking everything you put in your mouth on an kojo like [employer] or [employer] carries a zero net carb bread If you are looking for whole potatoes, like to use in soup or new potato shape/flavor, radishes are a great replacement If you are looking for mashed potatoes, riced cauliflower in the frozen bag section are a great replacement For pasta, try using zucchini noodles, lay them out on a cookie sheet and pat dry with a tea towel to try to remove as much moisture as possible. Heat your pasta sauce on the stove and put the noodles in for 30-45 seconds. If you leave them in much longer they will become mushy [place] and/or coconut flour instead of regular flour For pizza dough, try fathead pizza dough recipe online. To get a crispy crust, bake on one side for 8-12 min, then flip over and bake on the other side for 8-12 min, then put toppings on and bake until the cheese on top of pizza melts chaffles recipe online For ice cream, try the brand Enlightened To replace coffee creamer and make it low carb, use heavy creamer with sugar free Torani sweetener For chips, try Whisps or pork rinds For yogurt, try Two Good australian yogurt Use Pinterest for recipe ideas. Type in low carb... Assessment & Plan (10/24/2021 10:51 AM OFFICE MACHINERY OR EQUIPMENT INSTALLER): Healthy, low carbohydrate lifestyle and exercise for 150min/week recommended Assessment & Plan (07/26/2021 12:07 PM CDT): HPI: Condition is not at/near goal goal BMI <30 A&P: Healthy, high-protein, lower carbohydrate, lower fat lifestyle and exercise for 150min/week recommended Substitutions: Recommend tracking everything you put in your mouth on an kojo like [employer] or [employer] carries a zero net carb bread If you are looking for whole potatoes, like to use in soup or new potato shape/flavor, radishes are a great replacement If you are looking for mashed potatoes, riced cauliflower in the frozen bag section are a great replacement For pasta, try using zucchini noodles, lay them out on a cookie sheet and pat dry with a tea towel to try to remove as much moisture as possible. Heat your pasta sauce on the stove and put the noodles in for 30-45 seconds. If you leave them in much longer they will become mushy [place] and/or coconut flour instead of regular flour For pizza dough, try fathead pizza dough recipe online. To get a crispy crust, bake on one side for 8-12 min, then flip over and bake on the other side for 8-12 min, then put toppings on and bake until the cheese on top of pizza melts chaffles recipe online For ice cream, try the brand Enlightened To replace coffee creamer and make it low carb, use heavy creamer with sugar free Torani sweetener For chips, try Whisps or pork rinds For yogurt, try Two Good australian yogurt Use Pinterest for recipe ideas. Type in low carb... Assessment & Plan (05/19/2021 7:19 AM CDT): HPI: Condition is not at/near goal goal BMI <30 A&P: Healthy, high-protein, lower carbohydrate, lower fat lifestyle and exercise for 150min/week recommended Substitutions: Recommend tracking everything you put in your mouth on an kojo like [employer] or [employer] carries a zero net carb bread If you are looking for whole potatoes, like to use in soup or new potato shape/flavor, radishes are a great replacement If you are looking for mashed potatoes, riced cauliflower in the frozen bag section are a great replacement For pasta, try using zucchini noodles, lay them out on a cookie sheet and pat dry with a tea towel to try to remove as much moisture as possible. Heat your pasta sauce on the stove and put the noodles in for 30-45 seconds. If you leave them in much longer they will become mushy [place] and/or coconut flour instead of regular flour For pizza dough, try fathead pizza dough recipe online. To get a crispy crust, bake on one side for 8-12 min, then flip over and bake on the other side for 8-12 min, then put toppings on and bake until the cheese on top of pizza melts chaffles recipe online For ice cream, try the brand Enlightened To replace coffee creamer and make it low carb, use heavy creamer with sugar free Torani sweetener For chips, try Whisps or pork rinds For yogurt, try Two Good aust[place] yogurt Use Pinterest for recipe ideas. Type in low carb... Assessment & Plan (04/07/2021 7:24 AM CDT): HPI: Condition is not at/near goal goal BMI <30 A&P: Healthy, high-protein, lower carbohydrate, lower fat lifestyle and exercise for 150min/week recommended Substitutions: Recommend tracking everything you put in your mouth on an kojo like [employer] or [employer] carries a zero net carb bread If you are looking for whole potatoes, like to use in soup or new potato shape/flavor, radishes are a great replacement If you are looking for mashed potatoes, riced cauliflower in the frozen bag section are a great replacement For pasta, try using zucchini noodles, lay them out on a cookie sheet and pat dry with a tea towel to try to remove as much moisture as possible. Heat your pasta sauce on the stove and put the noodles in for 30-45 seconds. If you leave them in much longer they will become mushy [place] and/or coconut flour instead of regular flour For pizza dough, try fathead pizza dough recipe online. To get a crispy crust, bake on one side for 8-12 min, then flip over and bake on the other side for 8-12 min, then put toppings on and bake until the cheese on top of pizza melts chaffles recipe online For ice cream, try the brand Enlightened To replace coffee creamer and make it low carb, use heavy creamer with sugar free Torani sweetener For chips, try Whisps or pork rinds For yogurt, try Two Good australian yogurt Use Pinterest for recipe ideas. Type in low carb... Assessment & Plan (01/04/2021 6:48 AM CDT): HPI: Condition is stable A&P: Healthy, low carbohydrate lifestyle and exercise for 150min/week recommended Substitutions: Recommend tracking everything you put in your mouth on an kojo like [employer] [place] carries a zero net carb bread If you are looking for whole potatoes, like to use in soup or new potato shape/flavor, radishes are a great replacement If you are looking for mashed potatoes, riced cauliflower in the frozen bag section are a great replacement For pasta, try using zucchini noodles, lay them out on a cookie sheet and pat dry with a tea towel to try to remove as much moisture as possible. Heat your pasta sauce on the stove and put the noodles in for 30-45 seconds. If you leave them in much longer they will become mushy [place] and/or coconut flour instead of regular flour For pizza dough, try fathead pizza dough recipe online. To get a crispy crust, bake on one side for 8-12 min, then flip over and bake on the other side for 8-12 min, then put toppings on and bake until the cheese on top of pizza melts chaffles recipe online For ice cream, try the brand Enlightened To replace coffee creamer and make it low carb, use heavy creamer with sugar free Torani sweetener For chips, try Whisps or pork rinds For yogurt, try Two Good aust[place]ian yogurt Use Pinterest for recipe ideas. Type in low carb... Assessment & Plan (11/21/2020 9:21 AM OFFICE MACHINERY OR EQUIPMENT INSTALLER): Healthy, low carbohydrate lifestyle and exercise for 150min/week recommended Assessment & Plan (10/28/2020 3:25 PM OFFICE MACHINERY OR EQUIPMENT INSTALLER): HPI: Condition is worsening A&P: Healthy, low carbohydrate lifestyle and exercise for 150min/week recommended Substitutions: [employer] carries a zero net carb bread If you are looking for whole potatoes, like to use in soup or new potato shape/flavor, radishes are a great replacement If you are looking for mashed potatoes, riced cauliflower in the frozen bag section are a great replacement For pasta, try using zucchini noodles, lay them out on a cookie sheet and pat dry with a tea towel to try to remove as much moisture as possible. Heat your pasta sauce on the stove and put the noodles in for 30-45 seconds. If you leave them in much longer they will become mushy [place] and/or coconut flour instead of regular flour For pizza dough, try fathead pizza dough recipe online. To get a crispy crust, bake on one side for 8-12 min, then flip over and bake on the other side for 8-12 min, then put toppings on and bake until the cheese on top of pizza melts chaffles recipe online For ice cream, try the brand Enlightened Use [employer] for recipe ideas. Type in low carb... Assessment & Plan (08/30/2020 11:51 AM OFFICE MACHINERY OR EQUIPMENT INSTALLER): HPI: Condition is fluctuating 5-10 pounds A&P: Healthy, low carbohydrate lifestyle and exercise for 150min/week recommended Substitutions: [employer] carries a zero net carb bread If you are looking for whole potatoes, like to use in soup or new potato shape/flavor, radishes are a great replacement If you are looking for mashed potatoes, riced cauliflower in the frozen bag section are a great replacement For pasta, try using zucchini noodles, lay them out on a cookie sheet and pat dry with a tea towel to try to remove as much moisture as possible. Heat your pasta sauce on the stove and put the noodles in for 30-45 seconds. If you leave them in much longer they will become mushy [place] and/or coconut flour instead of regular flour For pizza dough, try fathead pizza dough recipe online. To get a crispy crust, bake on one side for 8-12 min, then flip over and bake on the other side for 8-12 min, then put toppings on and bake until the cheese on top of pizza melts chaffles recipe online For ice cream, try the brand Enlightened Use Pinterest for recipe ideas. Type in low carb... Resolved Problems Problem Noted Date Diagnosed Date Resolved Date S/P cholecystectomy 08/25/2021 10/26/19 22 Bloating 07/14/2021 10/26/2021 Biliary dyskinesia 01/28/2021 Overview (01/28/2021): Added automatically from request for surgery [id number] Assessment & Plan (02/23/2021 1:08 PM CDT): Diet as tolerated. Okay to return to work with light duty. No heavy lifting greater than 20 lb for 4 weeks. No submerging incisions for 4 weeks. Please call for any further questions or concerns. Alternating constipation and diarrhea 01/13/2021 01/24/2022 Assessment & Plan (01/24/2022 12:01 PM CDT): HPI: Condition is stable A&P: Discussed/ordered labs, encouraged healthy, low carbohydrate lifestyle and at least 150min/week of exercise, continue on docusate 100mg as needed, senna as needed Assessment & Plan (10/26/2021 7:59 AM OFFICE MACHINERY OR EQUIPMENT INSTALLER): HPI: Condition is stable A&P: Discussed/ordered labs, encouraged healthy, low carbohydrate lifestyle and at least 150min/week of exercise, continue on Docusate 100 mg as needed, Senokot 8.6 mg 2 tablets every 2-3 days in the evening as needed Non-intractable vomiting 01/13/202103/2022 Assessment & Plan (01/24/2022 12:03 PM CDT): HPI: Condition is stable A&P: Discussed/ordered labs, encouraged healthy, low carbohydrate lifestyle and at least 150min/week of exercise, continue on ondansetron as needed Adenomyomatosis of gallbladder 12/11/2020 10/26/2021 Assessment & Plan (01/26/2021 11:40 AM CDT): All other causes of pain have been ruled out. The patient has fairly classic symptoms for gallbladder disease. We will set her up for cholecystectomy. Risks and benefits to include post cholecystectomy diarrhea have been explained. All questions answered. Assessment & Plan (01/04/2021 8:25 AM CDT): Condition is improving Had EGD this week, GI is keeping her on omeprazole 20mg daily. She is being scheduled to get gallbladder removed. Reviewed EGD Assessment & Plan (12/11/2020 9:56 AM OFFICE MACHINERY OR EQUIPMENT INSTALLER): This condition will require cholecystectomy, so will refer to surgery after the EGD. Chest pain 12/01/2020 01/24/2022 Overview (12/01/2020): Added automatically from request for surgery [id number] Assessment & Plan (01/24/2022 12:05 PM CDT): Assessment & Plan (01/04/2021 8:25 AM CDT): HPI: Condition is stable A&P: Discussed/ordered labs, encouraged healthy, low carbohydrate lifestyle and at least 150min/week of exercise, reviewed Holter monitor and echocardiogram-both unremarkable Take bp cuff into office when you see cardiology later this week. GERD (gastroesophageal reflux disease) 10/28/2020 07/14/2021 Assessment & Plan (12/11/2020 9:50 AM OFFICE MACHINERY OR EQUIPMENT INSTALLER): Patient atypical symptoms of chest pain. Discussed GERD diet. Increase Omeprazole to twice daily. chedule EGD. Follow up after the EGD. RUQ pain 09/28/2020 10/26/2021 Encounters Date Type Department Care Team Description 01/04/2025 Nurse Triage [facility] Primary Care at [address] [phone] Shashi Patel MD 12/18/2024 10:15 AM OFFICE MACHINERY OR EQUIPMENT INSTALLER Ancillary Procedure [place] [facility] [address] [place] [phone] Cardiac arrhythmia, unspecified cardiac arrhythmia type; PSVT (paroxysmal supraventricular tachycardia); Implantable loop recorder present 11/14/2024 9:32 AM OFFICE MACHINERY OR EQUIPMENT INSTALLER - 11/14/2024 1:59 PM OFFICE MACHINERY OR EQUIPMENT INSTALLER Emergency [facility] Emergency Department [address] [phone] Lucia Vazquez MD Chest pain, unspecified type (Primary Dx); Palpitations Discharge Disposition: Discharge to home or self care 11/13/2024 7:45 AM OFFICE MACHINERY OR EQUIPMENT INSTALLER Ancillary Procedure [place] [facility] [address] [place] [phone] PSVT (paroxysmal supraventricular tachycardia); Tachycardia; Implantable loop recorder present 11/12/2024 Orders Only [place] [facility] [address] [place] [phone] Maleedmond Libra PSVT (paroxysmal supraventricular tachycardia) (Primary Dx); Cardiac arrhythmia, unspecified cardiac arrhythmia type; Implantable loop recorder present 11/10/2024 2:30 PM OFFICE MACHINERY OR EQUIPMENT INSTALLER [facility] [address] [place] [phone] Santos Beckham MD Cardiac arrhythmia, unspecified cardiac arrhythmia type (Primary Dx); PSVT (paroxysmal supraventricular tachycardia) 11/02/2024 12:00 PM OFFICE MACHINERY OR EQUIPMENT INSTALLER Office Visit [facility] Cardiology at [address] [place] [phone] Rm Olguin MD PSVT (paroxysmal supraventricular tachycardia) (Primary Dx); Hypertriglyceridemia; Class 3 severe obesity due to excess calories without serious comorbidity with body mass index (BMI) of 40.0 to 44.9 in adult (HCC); Obstructive sleep apnea 11/02/2024 Orders Only [facility] [address] [place] [address] [place] [phone] Santos Beckham MD PSVT (paroxysmal supraventricular tachycardia) (Primary Dx) 10/29/2024 4:15 PM OFFICE MACHINERY OR EQUIPMENT INSTALLER Office Visit [facility] Primary Care at [address] [phone] Shashi Patel MD Seasonal affective disorder (Primary Dx) 10/09/2024 11:45 AM OFFICE MACHINERY OR EQUIPMENT INSTALLER Ancillary Procedure [place] [facility] [employer] [address] [place] [phone] PSVT (paroxysmal supraventricular tachycardia); Tachycardia; Implantable loop recorder present from Last 3 Months Immunizations Immunization Administration Dates Next Due Influenza, Quadrivalent, Spl it, Intramuscular 08/26/2018 Influenza, Quadrivalent, Spl it, Preservative Free, Intramuscular 07/25/2022,09/05/2016 Influenza, Trivalent, IM (MDV) 07/16/2015 Influenza, Trivalent, Preser vative Free, Intramuscular 08/18/2024 Influenza, Unspecified 06/18/2023(Deferr ed: Patient Refused),10/21/2022(Deferred: Patient Refused),01/23/2022(Deferred: Patient Refused),07/26/2021(Deferred: Patient Refused),07/25/2021(Deferred: Patient Refused),07/21/2021(Deferred: Patient Refused),06/21/2021(Deferred: Patient Refused),07/21/2020(Deferred: Patient Refused),07/21/2020(Deferred: Patient Refused),07/21/2020(Deferred: Patient Refused),06/21/2020(Deferred: Patient Refused),07/21/2019(Deferred: Patient Refused),07/21/2019(Deferred: Patient Refused),09/05/2016 Surgical History Surgery Date Site/Laterality Comments TONSILLECTOMY when in 5th grade SECTION CHOLECYSTECTOMY 02/13/2021 CARDIAC CATHETERIZATION 08/01/2021 COLONOSCOPY 06/25/2024 Medical History Medical History Date Comments Known health problems: none Abnormal Pap smear of cervix Anemia CTS (carpal tunnel syndrome) Depression not taking any m edications Endometriosis was told she had it in high school Migraine takes Tylenol an d rests when she gets them Urinary tract infection used to get them often Varicella had as a child Arrhythmia GERD (gastroesophageal reflux disease) Bloating 07/14/2021 Adenomyomatosis of gallbladder 12/11/2020 RUQ pain 09/28/2020 Morbid obesity with BMI of 4 0.0-44.9, adult ([facility]) 08/30/2020 Obstructive sleep apnea 12/29/2021 Alternating constipation and diarrhea 01/13/2021 Anxiety 08/2020 Heart disease Family History Medical History Relation Name Comments Asthma Daughter 1 Rilynn Rashes / Skin problems Daughter 2 Yoli Alcohol abuse Father Leroy Bipolar disorder Father Leroy COPD Father Leroy Cancer Father Leroy Coronary artery disease Father Leroy Depression Father Leroy Developmental delay Father Leroy Diabetes Father Leroy Drug abuse Father Leroy Heart attack Father Leroy Heart disease Father Leroy Heart failure Father Leroy Hepatitis Father Leroy Hypertension Father Leroy Learning disabilities Father Leroy Lung disease Father Leroy Mental illness Father Leroy Obesity Father Leroy Peripheral vascular disease Father Leroy Schizophrenia Father Leroy Stroke Father Leroy Thyroid disease Father Leroy cholangiocancer Father Leroy cholangiocarcinoma Father Leroy Alzheimer's disease Maternal Grandmother Sharmin Memory loss Maternal Grandmother Sharmin Obesity Maternal Grandmother Sharmin Anemia Mother [place]lin Arthritis Mother Katlin Clotting disorder Mother Katlin Coronary artery disease Mother Katlin Heart disease Mother [place] Heart failure Mother [place] Mental illness Mother [place] Obesity Mother [place] Pulmonary embolism Mother [place] Schizophrenia Mother [place] Obesity Paternal Grandmother Rupinder Relation Name Status Comments Daughter 1 Rilynn Daughter 2 Kamranh Father Leroy Alive Maternal Grandmother Sharmin Mother [place] Other Alive Paternal Grandmother Rupindre Social History Tobacco Use Types Packs/Day Years Used Date Smoking Tobacco: Former Cigarettes 0.5 11 0 10/21/2008 - 10/21/2019 Smokeless Tobacco: Never Tobacco Cessation:Counseling Given: Not Answered Alcohol Use Standard Drinks/Week Comments No 0 (1 standard drink = 0.6 oz pur e alcohol) AUDIT-C Answer Date Recorded Q1: How often do you have a drink containing alc ohol? Never 12/13/2023 Average Number of Drinks Not on file 024 Frequency of Binge Drinking Not on file 11/22 PHQ-2 Answer Date Recorded PHQ-2 Total Score (If total score is 3 or more points, staff should administer the PHQ-9) 0 10/29/2024 Personal Safety Answer Date Recorded Have you ever been in or are you currently in a harmful physical or emotional relationship or is someone making you feel afraid or unsafe? Denies 11/14/2024 Comments No Sex and Gender Information Value Date Recorded Sex Assigned at Not on file Legal Sex Female 1:17 PM CDT Gender Identity Female 07/05/2021 12:09 PM CDT Sexual Orientation Straight 07/05/2021 12 :09 PM CDT Obstetrics History Para Term AB IAB SAB Ectopic Multiple Livin g Live Births 3 2 2 0 1 0 1 0 2 2 Date Outcome GA Total Labor Labor/2nd/3rd Weight Sex Type Anes PTL Eveline A1 A5 Name Clin Term F Vag-S pont Epidur al N Livin g Rilynn Braulio s 2010 SAB 6w0 d 2018 Term 40w 0d 0h 03m 0h 03m 3.864 kg (8 lb 8.3 oz) F CS-LT ranv Epidur al N Livin g 9 9 SYLVIE ,Opal Ackerman MD Complications: Intolera nce,Failure to Progress in Second Stage Delivery Location:This [facility] ([facility] L AND D PROCEDURE) Last Filed Vital Signs Vital Sign Reading Time Taken Comments Blood Pressure 102/74 11/14/2024 1:30 PM OFFICE MACHINERY OR EQUIPMENT INSTALLER Pulse 96 11/14/2024 1:30 PM OFFICE MACHINERY OR EQUIPMENT INSTALLER Temperature 36.1 C (97 F) 11/14/2024 9:26 AM OFFICE MACHINERY OR EQUIPMENT INSTALLER Respiratory Rate 25 11/14/2024 1:30 PM OFFICE MACHINERY OR EQUIPMENT INSTALLER Oxygen Saturation 92% 11/14/2024 1:30 PM OFFICE MACHINERY OR EQUIPMENT INSTALLER Inhaled Oxygen Concentration - - Weight 115.7 kg (255 lb) 11/14/2024 9:28 AM OFFICE MACHINERY OR EQUIPMENT INSTALLER Height 160 cm (5' 3 ) 11/02/2024 11:35 AM OFFICE MACHINERY OR EQUIPMENT INSTALLER Body Mass Index 45.17 11/02/2024 11:35 AM OFFICE MACHINERY OR EQUIPMENT INSTALLER Plan of Treatment Health Maintenance Due Date Last Done Comments Hepatitis C Screening 1993 Hepatitis B Screening 2011 Cervical Cancer Screening 01/02/2025 01/03/2024, 04/2022 Regular Well Visit/Exam 18-64 01/02/2025 01/03/2024, 07/27/2022 Depression Screening 10/29/2025 10/29/2024, 09/29/2024, 01/03/2024, Additional history exists Influenza Vaccine Completed 08/18/2024, , 08/26/2018, Additional history exists DTaP/Tdap/Td Vaccine Discontinued HPV Vaccines Aged Out No longer eligi ble based on patient's age to complete this topic Pneumococcal vaccine <65 Aged Out No longer eligible based on patient's age to complete this topic Medical Devices Implanted Type Area Fluid Power Mechanic Device Identifier Shelf Expiration Date Model / Serial / Lot [employer] [id number] Device Closure Vascade Od5 Fr Femoral Artery - [id number] - [id number] Implanted:Qty: 1 on 08/01/2021 by Chava Etienne MD at [facility] [employer] 03/13/2023 [id number] -[id number] / [id number] / [id number] [employer] [id number] System 6-12fr Mvp Venous Closure Vascade - [id number] - [id number] Implanted:Qty: 1 on 08/01/2021 by Chava Etienne MD at [facility] [employer] 05/22/2023 [id number] / [id number] 09A / [id number] [employer] [id number] Device Closure Vascade Od5 Fr Femoral Artery - [id number] - [id number] Implanted:Qty: 1 on 08/01/2021 by Chava Etienne MD at [facility] [employer] 03/13/2023 [id number] -[id number] / [id number] / [id number] [employer] Iii Monitor Cardiac Sterile Disposable Latex Free [id number] - [id number] - [id number] Implanted:Qty: 1 on 03/13/2023 by Bandar Leija MD at [facility] Implantable Loop Recorder [employer] 07/20/2024 [id number] / [id number] / Procedures Procedure Name Priority Date/Time Associated Diagnosis Comments DEVICE CHECK - REMOTE Routine 12/17/2024 1:15 PM OFFICE MACHINERY OR EQUIPMENT INSTALLER Cardiac arrhythmia, unspecified cardiac arrhythmia type PSVT (paroxysmal supraventricular tachycardia) Implantable loop recorder present TROPONIN T HIGH-SENSITIVITY 2-HOUR Timed 11/14/2024 12:31 PM OFFICE MACHINERY OR EQUIPMENT INSTALLER EGFR STAT 11/14/2024 10:12 AM OFFICE MACHINERY OR EQUIPMENT INSTALLER DIFFERENTIAL AUTO STAT 11/14/2024 10:12 AM OFFICE MACHINERY OR EQUIPMENT INSTALLER TROPONIN T HIGH-SENSITIVITY SERIES (BASELINE, 2HR, 4HR, 6HR) STAT 11/14/2024 10:12 AM OFFICE MACHINERY OR EQUIPMENT INSTALLER COMPREHENSIVE METABOLIC PANEL STAT 11/14/2024 10:12 AM OFFICE MACHINERY OR EQUIPMENT INSTALLER CBC WITH AUTO DIFFERENTIAL STAT 11/14/2024 10:12 AM OFFICE MACHINERY OR EQUIPMENT INSTALLER XR CHEST 1 VIEW ED 11/14/2024 9:59 AM OFFICE MACHINERY OR EQUIPMENT INSTALLER ECG 12-LEAD STAT 11/14/2024 9:32 AM OFFICE MACHINERY OR EQUIPMENT INSTALLER DEVICE CHECK - REMOTE Routine 11/12/2024 8:48 AM OFFICE MACHINERY OR EQUIPMENT INSTALLER PSVT (paroxysmal supraventricular tachycardia) Tachycardia Implantable loop recorder present ECG 12-LEAD Routine 11/10/2024 2:30 PM OFFICE MACHINERY OR EQUIPMENT INSTALLER Cardiac arrhythmia, unspecified cardiac arrhythmia type ELECTROCARDIOGRAM REPORT Routine 11/02/2024 1:25 PM OFFICE MACHINERY OR EQUIPMENT INSTALLER PSVT (paroxysmal supraventricular tachycardia) DEVICE CHECK - REMOTE Routine 10/08/2024 2:21 PM OFFICE MACHINERY OR EQUIPMENT INSTALLER PSVT (paroxysmal supraventricular tachycardia) Tachycardia Implantable loop recorder present PAP AND HPV, REFLEX TO HPV GENOTYPES Routine 01/03/2024 10:43 AM CDT Well woman exam from Last 3 Months or Most Recently Relevant to Health Maintenance Results * DEVICE CHECK - REMOTE (12/17/2024 1:15 PM OFFICE MACHINERY OR EQUIPMENT INSTALLER) Anatomical Region Laterality Modality Other Narrative 12/21/2024 3:37 PM OFFICE MACHINERY OR EQUIPMENT INSTALLER Images from the original result were not included. 12/18/2024 [employer] monthly remote check The complete report is attached and is also available in Visit Navigator under [employer] Personal Property Three HVR episodes 4 min16 sec longest AT/AF [place]: 0.0% of Day Next Appointment: 2025 with hayde Reviewed By Linh Garcia RN BSN ATTESTATION I have reviewed the device interrogation report associated with this encounter in detail. I agree with the documentation recorded/scanned into the electronic medical record. Recommendations: Continue current device follow-up. Samir Forrester MD Samir Forrester MD [facility] PROCEDURES Final Result * Troponin T high-sensitivity 2-hour (11/14/2024 12:31 PM OFFICE MACHINERY OR EQUIPMENT INSTALLER) Trop T hs <6 <=14 ng/L Comment: Interpretive Data For further hscTnT resources including the diagnostic algorithm and an aid in interpretation, copy and paste this link: [email or web address] Current Interpretive Data last revised 2020. Trop T hs delta 0 ng/L [facility] ([facility]) Trop T hs interp Insignificant [facility]) Blood 11/14/2024 12:3 1 PM OFFICE MACHINERY OR EQUIPMENT INSTALLER 11/14/2024 12:34 PM OFFICE MACHINERY OR EQUIPMENT INSTALLER us Shirley Ellis MD LAB BLOOD ORDERABLE S Final Result [facility] ([facility]) [facility] [place] [address] * Troponin T high-sensitivity series (baseline, 2hr, 4hr, 6hr) (11/14/2024 10:12 AM OFFICE MACHINERY OR EQUIPMENT INSTALLER) Trop T hs <6 <=14 ng/L Comment: Interpretive Data For further hscTnT resources including the diagnostic algorithm and an aid in interpretation, copy and paste this link: [email or web address] Current Interpretive Data last revised 2020. Blood 11/14/2024 10:1 2 AM OFFICE MACHINERY OR EQUIPMENT INSTALLER 11/14/2024 10:16 AM OFFICE MACHINERY OR EQUIPMENT INSTALLER us Lucia Vazquez MD LAB BLOOD ORDERABLES Teena l Result [facility] ([place]) 1 [facility] [place] [address] * eGFR (11/14/2024 10:12 AM OFFICE MACHINERY OR EQUIPMENT INSTALLER) eGFR >90 >=60 mL/min/1. 73 m2 Comment: Interpretive Data Reference Interval Normal >/= 90 mL/min/1.73m2 Mildly decreased* 60 - 89 mL/min/1.73m2 Mildly to moderately decreased 45 - 59 mL/min/1.73m2 Moderately to severely decreased 30 - 44 mL/min/1.73m2 Severely decreased 15 - 29 mL/min/1.73m2 Kidney Failure < 15 mL/min/1.73m2 *Relative to young adult level Estimated glomerular filtration rate is determined by the 2020 CKD-EPI equation recommended by the National Kidney Foundation (A Unifying Approach to GFR Estimation: Recommendations of the NKF-ASK Task Force on Reassessing the Inclusion of Race in Diagnosing Kidney Disease, JASN 2020). The CKD-EPI equation should not be used for patients with unstable renal function and has not been validated in children and those over 70. Current interpretive data was last reviewed 2021. Blood 11/14/2024 10:1 2 AM OFFICE MACHINERY OR EQUIPMENT INSTALLER 11/14/2024 10:16 AM OFFICE MACHINERY OR EQUIPMENT INSTALLER us Shirley Ellis MD LAB BLOOD ORDERABLE S Final Result [facility] ([place]) 1 [facility] [place] [address] * Differential, auto (11/14/2024 10:12 AM OFFICE MACHINERY OR EQUIPMENT INSTALLER) Neutrophil abs 3.6 1.5 - 6.5 K/cumm Imm gran abs 0.0 0.0 - 0.1 K/cumm [facility] ([facility]) Lymphocyte abs 2.4 0.8 - 3.3 K/cumm [facility] ([facility]) Monocyte abs 0.4 0.2 - 0.8 K/cumm [facility] ([facility]) Eosinophil abs 0.3 0.0 - 0.5 K/cumm [facility] ([facility]) Basophil abs 0.1 0.0 - 0.1 K/cumm [facility]) Neutrophil pct 52.7 % [facility] ([facility]) Comment: Interpretive Data Percent cell count reference ranges are not reported, since discordance with absolute values may lead to misinterpretation of CBC data. Current Interpretive Data was last revised on 2018. Imm gran pct 0.3 % [facility] ([facility]) Comment: Interpretive Data Percent cell count reference ranges are not reported, since discordance with absolute values may lead to misinterpretation of CBC data. Current Interpretive Data was last revised on 2018. Lymphocyte pct 35.7 % [facility] ([facility]) Comment: Interpretive Data Percent cell count reference ranges are not reported, since discordance with absolute values may lead to misinterpretation of CBC data. Current Interpretive Data was last revised on 2018. Monocyte pct 6.1 % [facility] ([facility]) Comment: Interpretive Data Percent cell count reference ranges are not reported, since discordance with absolute values may lead to misinterpretation of CBC data. Current Interpretive Data was last revised on 2018. Eosinophil pct 4.0 % [facility] ([facility]) Comment: Interpretive Data Percent cell count reference ranges are not reported, since discordance with absolute values may lead to misinterpretation of CBC data. Current Interpretive Data was last revised on 2018. Basophil pct 1.2 % [facility] ([facility]) Comment: Interpretive Data Percent cell count reference ranges are not reported, since discordance with absolute values may lead to misinterpretation of CBC data. Current Interpretive Data was last revised on 2018. Blood 11/14/2024 10:1 2 AM OFFICE MACHINERY OR EQUIPMENT INSTALLER 11/14/2024 10:16 AM OFFICE MACHINERY OR EQUIPMENT INSTALLER us Shirley Ellis MD LAB BLOOD ORDERABLE S Final Result [facility] (DAR) 1 [facility] [place] [address] * (ABNORMAL) CBC with auto differential (11/14/2024 10:12 AM OFFICE MACHINERY OR EQUIPMENT INSTALLER) WBC 6.8 3.8 - 9.9 K/cumm Hgb 13.8 11.9 - 15.5 g/dL [facility] (D[facility]) Hct 42.2 35.6 - 45.5 % [facility] ([facility]) Plt 419(H) 150 - 400 K/cumm [facility] ([facility]) MPV 8.9(L) 9.1 - 12.3 fL [facility] ([facility]) RBC 4.79 3.90 - 5.20 M/cumm [facility] ([facility]) MCV 88.1 81.3 - 96.4 fL [facility] ([facility]) MCH 28.8 27.1 - 33.3 pg [facility] ([facility]) MCHC 32.7 32.3 - 35.7 g/dL [facility] ([facility]) RDW CV 12.8 11.1 - 14.9 % [facility] ([facility]) RDW SD 41.5 35.7 - 48.1 fL [facility] ([facility]) NRBC abs 0.00 0.00 - 0.01 K/cumm [facility] ([facility]) Blood Venous blood specimen / Unknown 11/14/2024 10:12 AM OFFICE MACHINERY OR EQUIPMENT INSTALLER 11/14/2024 10:16 AM OFFICE MACHINERY OR EQUIPMENT INSTALLER us Lucia Vazquez MD LAB BLOOD ORDERABLES Teena l Result [facility] (DAR) 1 [facility] [place] [address] * (ABNORMAL) Comprehensive metabolic panel (11/14/2024 10:12 AM OFFICE MACHINERY OR EQUIPMENT INSTALLER) Pathologist [facility] Sodium 134(L) 135 - 145 mmol/L Potassium, pl 3.8 3.3 - 4.9 mmol/L [facility] ([facility]) Chloride 102 97 - 110 mmol/L [facility] ([facility]) CO2 20(L) 22 - 32 mmol/L [facility] ([facility]) Anion gap 11 2 - 15 mmol/L [facility] ([facility]) BUN 8 6 - 25 mg/dL [facility] ([facility]) Creatinine 0.76 0.60 - 1.10 mg/dL [facility] ([facility]) Glucose 87 70 - 199 mg/dL [facility] ([facility]) Comment: Interpretive Data Fasting glucose >/= 126 mg/dl is diagnostic for diabetes. Fasting is defined as no caloric intake for at least 8 hours. Fasting glucose between 100 mg/dl to 125 mg/dl is diagnostic of prediabetes. In a patient with classic symptoms of hyperglycemia or hyperglycemic crisis, a random glucose >/= 200 mg/dl is diagnostic for diabetes. In the absence of unequivocal hyperglycemia, results should be confirmed by repeat testing. The classification and Diagnosis of Diabetes Diabetes Care 2021; 46: S19-S40. Current interpretive data was last revised 2022. Calcium 9.3 8.5 - 10.3 mg/dL [facility] ([facility]) Bilirubin, total 0.3 0.1 - 1.2 mg/dL [facility] ([facility]) Protein, pl 7.1 6.5 - 8.5 g/dL [facility] ([facility]) Albumin 4.3 3.5 - 5.0 g/dL [facility] ([facility]) Alk phos 93 40 - 130 Units/L [facility] ([facility]) ALT 16 7 - 45 Units/L [facility] ([facility]) AST 17 10 - 45 Units/L [facility] ([facility]) Blood 11/14/2024 10:1 2 AM OFFICE MACHINERY OR EQUIPMENT INSTALLER 11/14/2024 10:16 AM OFFICE MACHINERY OR EQUIPMENT INSTALLER us Lucia Vazquez MD LAB BLOOD ORDERABLES Teena mike Result [facility] (DAR) 1 [facility] [place] [address] * XR Chest 1 Vw Portable (if patient condition/safety warrant portable) (11/14/2024 9:59 AM OFFICE MACHINERY OR EQUIPMENT INSTALLER) Anatomical Region Laterality Modality Body, Chest N/A Computed Radiogr aphy 11/14/2024 10:2 7 AM OFFICE MACHINERY OR EQUIPMENT INSTALLER Narrative 11/14/2024 10:29 AM OFFICE MACHINERY OR EQUIPMENT INSTALLER EXAM DESCRIPTION: XR CHEST 1 VIEW REASON FOR STUDY: chest pain Pt states she has left upper chest pain through to her back. Pt states she has SVT and had a bout before she got here. Pt states her heart rate came down but she is having pain still. TECHNIQUE: 1 radiographic view(s) of the chest. COMPARISON: 09/04/2023 FINDINGS: LUNGS: No focal opacity, pleural effusion, or pneumothorax. HEART/MEDIASTINUM: Cardiac silhouette normal in size for AP technique. Mediastinal and hilar contours appear normal. LINES/TUBES: Device projects over the left heart border compatible with loop recorder. BONES: No acute osseous abnormality. IMPRESSION: No acute pulmonary process. THIS IS AN ELECTRONICALLY VERIFIED FINAL REPORT 11/14/2024 10:29 AM - Electronically signed by Evaristo Krishnan M.D. MM: MM Report ID: [id number] Reading Location: [id number] Procedure Note Evaristo Krishnan MD - 11/14/2024 EXAM DESCRIPTION: XR CHEST 1 VIEW REASON FOR STUDY: chest pain Pt states she has left upper chest pain through to her back. Pt statesshe has SVT and had a bout before she got here. Pt states her heart rate came down but she is having pain still. TECHNIQUE: 1 radiographic view(s) of the chest. COMPARISON: 09/04/2023 FINDINGS: LUNGS: No focal opacity, pleural effusion, or pneumothorax. HEART/MEDIASTINUM: Cardiac silhouette normal in size for AP technique. Mediastinal and hilar contours appear normal. LINES/TUBES: Device projects over the left heart border compatible withloop recorder. BONES: No acute osseous abnormality. IMPRESSION: No acute pulmonary process. THIS IS AN ELECTRONICALLY VERIFIED FINAL REPORT 11/14/2024 10:29 AM - Electronically signed by Evaristo Krishnan M.D. MM: MM Report ID: [id number] Reading Location: [id number] Lucia Vazquez MD IMG XR PROCEDURES Final R esult * ECG 12 lead (11/14/2024 9:32 AM OFFICE MACHINERY OR EQUIPMENT INSTALLER) 11/14/2024 9:32 AM OFFICE MACHINERY OR EQUIPMENT INSTALLER Narrative [facility] - 11/14/2024 10:10 AM OFFICE MACHINERY OR EQUIPMENT INSTALLER Vent Rate: 79 bpm RR Interval: 757 msec TN Interval: 154 msec QRS Duration: 84 msec QT Interval: 369 msec QTC Interval: 403 msec P-R-T [place]: 19 - 7 - 30 degrees IMPRESSION: SINUS RHYTHM NORMAL ECG Electronically Signed By: Steven Jones MD, [facility] Lucia Vazquez MD ECG ORDERABLES Final Res ult [facility] * DEVICE CHECK - REMOTE (11/12/2024 8:48 AM OFFICE MACHINERY OR EQUIPMENT INSTALLER) Anatomical Region Laterality Modality Other Narrative 11/13/2024 3:56 PM OFFICE MACHINERY OR EQUIPMENT INSTALLER Images from the original result were not included. 11/13/2024 [employer] monthly remote check The complete report is attached and is also available in Visit Navigator under Appraiser Personal Property Last periodic IEGM: HVR episode from 10/16/2024 @8:05am 12 sec duration Next Appointment: 2025 with Hayde Reviewed By Linh Garcia MERCHANDISING COORDINATOR ATTESTATION I have reviewed the device interrogation report associated with this encounter in detail. I agree with the documentation recorded/scanned into the electronic medical record. Recommendations: Continue current device follow-up. Samir Forrester MD Samir Forrester MD CV CARDIAC SERVICES PROCEDURES Final Result * ECG 12 lead (11/10/2024 2:30 PM OFFICE MACHINERY OR EQUIPMENT INSTALLER) 11/10/2024 2:30 PM OFFICE MACHINERY OR EQUIPMENT INSTALLER us Santos Beckham MD ECG ORDERABLES Final Re sult * Electrocardiogram Report (11/02/2024 1:25 PM OFFICE MACHINERY OR EQUIPMENT INSTALLER) us Rm Olguin MD ECG ORDERABLES Final Res ult * DEVICE CHECK - REMOTE (10/08/2024 2:21 PM OFFICE MACHINERY OR EQUIPMENT INSTALLER) Anatomical Region Laterality Modality Other Narrative 10/09/2024 10:22 PM OFFICE MACHINERY OR EQUIPMENT INSTALLER Images from the original result were not included. 10/09/2024 [employer] monthly remote check The complete report is attached and is also available in Visit Navigator under Appraiser Personal Property Last periodic IEGM 10/09/2025: HVR episode on 10/02/2024: lasting 5 minutes Next Appointment: 2025 with Hayde Reviewed By Linh Garcia RN BSN ATTESTATION I have reviewed the device interrogation report associated with this encounter in detail. I agree with the documentation recorded/scanned into the electronic medical record. Recommendations: Continue current device follow-up. Samir Forrester MD Samir Forrester MD CV CARDIAC SERVICES PROCEDURES Final Result * Pap and HPV, reflex to HPV Genotypes (01/03/2024 10:43 AM CDT) CLINICAL INFORMATION: [facility] [employer] [facility] Comment:SCREENING LMP [facility] Comment:12/12/23 Previous Pap [facility] Comment:NONE GIVEN Prev. Bx [facility] Comment:NONE GIVEN SOURCE: [facility] Comment:Cervix, Endocervix Pap, specimen adequacy [facility] [employer] [facility] Comment: Satisfactory for evaluation. Endocervical/transformation zone component present. HPV interp [facility] [employer] [facility] Comment: Cytology Results: Negative for intraepithelial lesion or malignancy. COMMENTS [facility] [employer] [facility] Comment: This Pap test has been evaluated with computer assisted technology. Appeals Officer [facility] [employer] [facility] Comment: YQ, CT(ASCP) CT screening location: [place] [address] [place] [address] [facility] Comment: EXPLANATORY NOTE: The Pap is a screening test for cervical cancer. It is not a diagnostic test and is subject to false negative and false positive results. It is most reliable when a satisfactory sample, regularly obtained, is submitted with relevant clinical findings and history, and when the Pap result is evaluated along with historic and current clinical information. Human papillomavirus DNA, High Risk E6/E7 Not Detected NOT DETECTED [facility] [employer] [facility] Comment: Not Detected High Risk HPV types (16,18,31,33,35,39,45,51,52, 56,58,59,66,68) were not detected. Other HPV types which cause anogenital lesions may be present. The significance of the other types of HPV in malignant processes has not been established. Methodology: Real Time PCR Thin prep 01/03/2024 10:4 3 AM CDT 01/06/2024 9:13 AM CDT us Ellen Gomez NP LAB CYTOLOGY ORDERABLES Final Re sult [place] [address] [address] [place] [id number] [facility] [address] [place] [address] from Last 3 Months or Most Recently Relevant to Health Maintenance Insurance [facility] Advance Directives For more information, please contact: [phone] * Full Code (Latest Code Status on File) Date Activated Date Inactivated Comments 06/25/2024 9:20 AM 06/25/2024 3:52 PM * Full Code Date Activated Date Inactivated Comments 06/25/2024 9:20 AM 06/25/2024 9:20 AM * Full Code Date Activated Date Inactivated Comments 03/13/2023 9:46 AM 03/13/2023 3:00 PM * Full Code Date Activated Date Inactivated Comments 01/02/2021 7:13 AM 01/02/2021 1:33 PM * Full Code Date Activated Date Inactivated Comments 11/28/2018 5:32 PM 12/01/2018 6:54 PM Care Teams Supervisor Wound Relationship Specialty Start Date End Date Shashi Patel MD [address] [address] PCP - General Family Medicine 08/06/22 Caty Tristan, PT Physical Therapist Physical Therapy 03/09/22 Ellen Gomez FAST FOOD SUPERVISOR [address] [place] [address] [address] [address] Obstetrics and Gynecology 04/10/22
--- OUTSIDE RECORDS SUMMARY | 2025-01-04 18:23 | XMS_ITS | Clinical Summary ---
Author Organization [facility] Address [address] [place] [address] Care Team Providers Care Golf Club Manager Name Role Phone Unavailable Primary Care Provider Unavailabl e Source Comments [facility],non-owned Affiliates and Associated Physician Practices is amultiple site organization consisting of ambulatory clinics and hospital sitesin [place], [place], [place] and [place]. This disclosure is being madepursuant to the Care Everywhere program and may not contain all information available regarding this patient. Last updated 18.[employer] [facility] Allergies Active Allergy Reactions Criticality Noted Date Comments Pertussis Vaccine Anaphylaxis High 11/19/2014 Medications * Be aware that medications may not be up to date on this document. Alwaysverify current medications with the patient. Medication Sig Dispensed Refills Start Date End Date Status Iron Active Active Problems Problem Noted Date Diagnosed Date ROM (rupture of membranes), premature 03/19/2015 03/19/2015 Family History Medical History Relation Name Comments Diabetes Father Heart Disease Father Hypertension Father Stroke Father Arthritis Mother Cancer Paternal Grandfather Diabetes Paternal Grandfather Hypertension Paternal Grandfather Diabetes Paternal Grandmother Hypertension Paternal Grandmother Relation Name Status Comments Father Mother Paternal Grandfather Paternal Grandmother Social History Tobacco Use Types Packs/Day Years Used Date Smoking Tobacco: Every Day Cigarettes 0.5 15.2 Started: 10/21/2009 Smokeless Tobacco: Never Tobacco Cessation:Ready to Q uit: Yes; Counseling Given: Yes Alcohol Use Standard Drinks/Week Comments No 0 (1 standard drink = 0.6 oz pur e alcohol) Sex and Gender Information Value Date Recorded Sex Assigned at Not on file Gender Identity Not on file Sexual Orientation Not on file Last Filed Vital Signs Vital Sign Reading Time Taken Comments Blood Pressure 114/61 01/10/2017 1:08 PM CDT Pulse 61 01/10/2017 1:08 PM CDT Temperature 37 C (98.6 F) 01/10/2017 1:08 PM CDT Respiratory Rate 15 01/10/2017 11:00 AM CDT Oxygen Saturation 100% 01/10/2017 1:08 PM CDT Inhaled Oxygen Concentration - - Weight 83.9 kg (185 lb) 01/10/2017 10:53 AM CDT Height 160 cm (5' 3 ) 01/10/2017 10:53 AM CDT Body Mass Index 32.77 01/10/2017 10:53 AM CDT Plan of Treatment Health Maintenance Due Date Last Done Comments PAP SMEAR 1993 HIV SCREENING 01/30/2008 HEPATITIS C SCREENING 01/25/2011 DTAP/TDAP/TD VACCINES (1 - Tdap) 01/30/2012 HEPATITIS B VACCINE (1 of 3 - 19+ 3-dose series) 01/30/2012 PNEUMOCOCCAL VACCINE (1 of 2 - PCV) 01/30/2012 COVID-19 VACCINE (1 - 2023-2 5 season) 2024 INFLUENZA VACCINE (#1) 2024 09/05/2016 DEPRESSION SCREENING 10/21/2024 ZOSTER VACCINE (1 of 2) 2043 HIB VACCINE Aged Out No longer eligi ble based on patient's age to complete this topic HPV VACCINE Aged Out No longer eligi ble based on patient's age to complete this topic MENINGOCOCCAL (Group B) VACC INE SHARED DECISION-MAKING Aged Out No longer eligibl e based on patient's age to complete this topic MENINGOCOCCAL GROUPS A/C/Y/W VACCINE Aged Out No longer eligible b ased on patient's age to complete this topic Advance Directives Documents on File Type Date Recorded Patient Test Manager Expl anation Adv Directive/Living Will/POA 01/10/2017 12:07 PM Medication Patient Assistance Program * Full Code (Latest Code Status on File) Date Activated Date Inactivated Comments 03/20/2015 6:37 PM 03/23/2015 8:36 PM * Full Code Date Activated Date Inactivated Comments 03/19/2015 9:09 PM 03/20/2015 12:52 AM * Full Code Date Activated Date Inactivated Comments 03/09/2015 3:38 PM 03/09/2015 6:48 PM * Full Code Date Activated Date Inactivated Comments 11/19/2014 8:57 PM 11/19/2014 11:51 PM
--- OUTSIDE RECORDS SUMMARY | 2025-01-04 18:23 | XMS_ITS | Referral Summary ---
Author Organization [facility] Address [address] [place] [address] Care Team Providers Care Wic Site Coordinator Name Role Phone Unavailable Primary Care Provider Unavailabl e Source Comments [facility],non-owned Affiliates and Associated Physician Practices is amultiple site organization consisting of ambulatory clinics and hospital sitesin [place], [place], [place] and [place]. This disclosure is being madepursuant to the Care Everywhere program and may not contain all information available regarding this patient. Last updated 18.[facility] Allergies Active Allergy Reactions Criticality Noted Date Comments Pertussis Vaccine Anaphylaxis High 11/19/2014 Medications * Be aware that medications may not be up to date on this document. Alwaysverify current medications with the patient. Medication Sig Dispensed Refills Start Date End Date Status Iron Active Active Problems Problem Noted Date Diagnosed Date ROM (rupture of membranes), premature 03/19/2015 03/19/2015 Social History Tobacco Use Types Packs/Day Years [...] Mass Index 32.77 01/10/2017 10:53 AM CDT Functional Status Functional Status Response Date of Assess ment Is person deaf or have serious hearing difficult y? No 03/20/2015 Is person blind or have serious difficulty seein g? No 03/20/2015 Does person have serious dif ficulty walking/climbing stairs? No 03/20/2015 Does person have difficulty dressing/bathing? No 03/20/2015 Does person have difficulty doing errands alone? No 03/20/2015 Cognitive Status Response Date of Assessm ent Does person have difficulty concentrating/remembering/making decisions? No 03/20/2015 Plan of Treatment Not on file Advance Directives Documents on File Type Date Recorded Patient Nutrition Program Instructor Expl anation Adv Directive/Living Will/POA 01/10/2017 12:07 [...]
--- OUTSIDE RECORDS SUMMARY | 2025-01-04 18:23 | XMS_ITS | Clinical Summary ---
Author Organization [facility] Address [address] [place] [address] Phone Care Team Providers Care Beam Dyer Recessed Vat Name Role Phone Shashi Patel MD Primary Care Provider Social History Tobacco Use Types Packs/Day Years Used Date Smoking Tobacco: Never Assessed Comments Unknown Sex and Gender Information Value Date Recorded Sex Assigned at Not on file Legal Sex Female 1:21 PM CDT Gender Identity Not on file Sexual Orientation Not on file Plan of Treatment Health Maintenance Due Date Last Done Comments Hepatitis C Virus (HCV) Screening 1993 TdaP Immunization 1993 Hepatitis B Immunization (1 of 3 - 19+ 3-dose series) 01/30/2012 Pap Smear 2014 Cervical Cancer Screening (CCS) 2023 HPV/Cotest 2023 Influenza Immunization (#1) 06/21/20240 02/2022, 08/26/2018, 09/05/2016, Additional history exists SARS-COV-2 Immunization ( season) 2024 Respiratory Syncytial Virus (RSV) Immunization (Adult) (1 - 1-dose 75+ series) 01/30/2068 Meningococcal Immunization (ACWY) Aged Out No longer eligible based on patient's age to complete this topic Pneumococcal Immunization Combined Aged Out No longer eligible based on patient's age to complete this topic Rotavirus Immunization Aged Out No lo nger eligible based on patient's age to complete this topic Insurance MEDICAID [employer] Care Teams Beam Dyer Recessed Vat Relationship Specialty Start Date End Date Shashi Patel MD [address] [place] [address] PCP - General Family Medicine 07/30/22
--- OUTSIDE RECORDS SUMMARY | 2025-01-04 18:23 | XMS_ITS | Clinical Summary ---
Author Organization [facility] Address [address] [place] [address] Phone Care Team Providers Care Railway Traction Line Worker Name Role Phone Unavailable Primary Care Provider Unavailabl e Allergies Active Allergy Reactions Criticality Noted Date Comments Pertussis Vaccines Unknown 01/23/2015 Medications pediatric multivit comb no.76 (FLINTSTONES COMPLETE) Tablet, Chewable Take by mouth. Active ibuprofen (MOTRIN) 600 mg tablet Take 600 mg by mouth every 6 hours as needed for Pain, Mild. Active HYDROcodone-acet aminophen (NORCO) 5-325 mg tablet Take 1 Tab by mouth every 4 hours as needed for Pain, Moderate. Active oxyCODONE-acetam inophen (PERCOCET) 5-325 mg tablet Take 1 Tab by mouth every 4 hours as needed for Pain, Moderate. Max Daily Amount: 6 Tabs 30 Tab None 03/25/2015 Active ondansetron (ZOFRAN ODT) 4 mg Tablet, Rapid Dissolve Place 1 Tab (4 mg) under tongue every 6 hours as needed for Nausea/Emes is. 20 Tab 0 03/25/2015 Active methylergonovine (METHERGINE) 0.2 mg tablet Take 1 Tab (0.2 mg) by mouth every 8 hours. 2 Tab None 03/25/2015 Active ferrous sulfate (FEOSOL) 325 mg (65 mg iron) tablet Take 1 Tab (325 mg) by mouth 2 times daily. 30 Tab 0 03/25/2015 Active Active Problems Problem Noted Date Diagnosed Date Vaginal bleeding 03/25/2015 Dizziness 03/25/2015 Anemia 03/25/2015 Cramping complicating , antepartum /05/2015 [place], Yeast infection, d/c 01/23/2015 Round ligament pain 10/26/2014 Family History Medical History Relation Name Comments Diabetes Father Heart Disease Father Hypertension Father Healthy Mother Relation Name Status Comments Father Alive Mother Alive Social History Tobacco Use Types Packs/Day Years Used Date Smoking Tobacco: Former Cigarettes Smokeless Tobacco: Never Alcohol Use Standard Drinks/Week Comments No 0 (1 standard drink = 0.6 oz pur e alcohol) Comments No Sex and Gender Information Value Date Recorded Sex Assigned at Not on file Legal Sex Female 3:04 AM [employer] Gender Identity Not on file Sexual Orientation Not on file Last Filed Vital Signs Vital Sign Reading Time Taken Comments Blood Pressure 136/79 03/24/2015 11:58 PM CDT Pulse 100 03/24/2015 11:00 PM CDT Temperature 37.3 C (99.2 F) 03/24/2015 8:44 PM CDT Respiratory Rate 14 03/24/2015 11:58 PM CDT Oxygen Saturation 99% 03/24/2015 11:58 PM CDT Inhaled Oxygen Concentration - - Weight 80.7 kg (178 lb) 01/23/2015 12:14 PM CDT Height 160 cm (5' 3 ) 01/23/2015 12:14 PM CDT Body Mass Index 31.53 01/23/2015 12:14 PM CDT Plan of Treatment Health Maintenance Due Date Last Done Comments DTAP/TDAP/TD VACCINES (1 - Tdap) 01/30/2012 HEPATITIS B VACCINES (1 of 3 - 19+ 3-dose series) 01/30/2012 CERVICAL CANCER SCREENING 2023 INFLUENZA VACCINE (#1) 2024 HPV VACCINES Aged Out No longer eligi ble based on patient's age to complete this topic Advance Directives For more information, please contact: [phone] * Full Code (Latest Code Status on File) Date Activated Date Inactivated Comments 02/15/2015 1:51 PM 02/15/2015 5:19 PM * Full Code Date Activated Date Inactivated Comments 01/23/2015 1:45 PM 01/23/2015 6:41 PM * Full Code Date Activated Date Inactivated Comments 10/26/2014 4:50 PM 10/26/2014 9:25 PM
--- OUTSIDE RECORDS SUMMARY | 2025-01-04 18:23 | XMS_ITS | Referral Summary ---
Author Organization [facility] Address [address] [place] [address] Care Team Providers Care Scientific Photographer Name Role Phone Caty Tristan PT Unavailable Ellen Redmond MANAGER MACHINE Unavailable Shashi Patel MD Primary Care Provider Encounters Date Type Department Care Team Description 01/04/[address] [facility] Primary Care at [address] [phone] Shashi Patel MD 12/18/2024 10:15 AM COSTUME DIRECTOR Ancillary Procedure [place] [facility] Operator [address] [place] [phone] Cardiac arrhythmia, unspecified cardiac arrhythmia type; PSVT (paroxysmal supraventricular tachycardia); Implantable loop recorder present 11/14/2024 9:32 AM COSTUME DIRECTOR - 11/14/2024 1:59 PM COSTUME DIRECTOR Emergency [facility] Emergency Department [address] [place] [address] Lucia Vazquez MD Chest pain, unspecified type (Primary Dx); Palpitations Discharge Disposition: Discharge to home or self care 11/13/2024 7:45 AM COSTUME DIRECTOR Ancillary Procedure [place] [facility] Operator [address] [place] [phone] PSVT (paroxysmal supraventricular tachycardia); Tachycardia; Implantable loop recorder present 11/12/[address] [place] [facility] [address] [place] [phone] Libra Young PSVT (paroxysmal supraventricular tachycardia) (Primary Dx); Cardiac arrhythmia, unspecified cardiac arrhythmia type; Implantable loop recorder present 11/10/2024 2:30 PM COSTUME DIRECTOR [facility] [address] [place] [phone] Santos Beckham MD Cardiac arrhythmia, unspecified cardiac arrhythmia type (Primary Dx); PSVT (paroxysmal supraventricular tachycardia) 11/02/2024 Orders Only [facility] [address] [place] [phone] Santos Beckham MD PSVT (paroxysmal supraventricular tachycardia) (Primary Dx) 11/02/2024 12:00 PM COSTUME DIRECTOR Office Visit [facility] Cardiology at [address] [phone] Rm Olguin MD PSVT (paroxysmal supraventricular tachycardia) (Primary Dx); Hypertriglyceridemia; Class 3 severe obesity due to excess calories without serious comorbidity with body mass index (BMI) of 40.0 to 44.9 in adult (HCC); Obstructive sleep apnea 10/29/2024 4:15 PM COSTUME DIRECTOR Office Visit [facility] Primary Care at [address] [phone] Shashi Patel MD Seasonal affective disorder (Primary Dx) 10/09/2024 11:45 AM COSTUME DIRECTOR Ancillary Procedure 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 Use hibiclenz weekly Vitamin D deficiency 01/24/2022 Assessment & Plan (11/11/2022 2:04 PM COSTUME DIRECTOR): Continuing vitamin D supplement Assessment & Plan (01/24/2022 1:26 PM CDT): HPI: Condition is stable A&P: Discussed/ordered labs, encouraged healthy, low carbohydrate lifestyle and at least 150min/week of exercise, continue on vit d3 5000 units daily Obstructive sleep apnea 12/29/2021 Assessment & Plan (01/24/2022 1:20 PM CDT): cpap is on backorder She is going through [facility] PSVT (paroxysmal supraventricular tachycardia) 0 07/05/2021 Overview (07/05/2021): Added automatically from request for surgery [id number] Assessment & Plan (01/24/2022 1:21 PM CDT): HPI: Condition is stable pt had ablation, she sometimes feels some palpitations. A&P: Discussed/ordered labs, encouraged healthy, low carbohydrate lifestyle and at least 150min/week of exercise, continue seeing Dr. Foote pt no longer on flecainide. But if she starts back with symptoms, she would need to restart it. Assessment & Plan (10/26/2021 8:01 AM COSTUME DIRECTOR): HPI: Condition is stable Patient had ablation A&P: Discussed/ordered labs, encouraged healthy, low carbohydrate lifestyle and at least 150min/week of exercise, continue Seen Dr. Foote cardiology ? Is patient no longer on flecainide Hypertriglyceridemia 04/11/2021 Assessment & Plan (11/11/2022 2:04 PM COSTUME DIRECTOR): Wanting to try and resume Vascepa I do note the triglycerides have improved nicely BP is well controlled Continue efforts at intermittent fasting, exercise Assessment & Plan (01/24/2022 1:22 PM CDT): HPI: Condition is stable A&P: Discussed/ordered labs, encouraged healthy, low carbohydrate lifestyle and at least 150min/week of exercise, currently on fish oil Assessment & Plan (10/26/2021 7:58 AM COSTUME DIRECTOR): HPI: Condition is stable A&P: Discussed/ordered labs, encouraged healthy, low carbohydrate lifestyle and at least 150min/week of exercise, Currently on no medication for this Gastroesophageal reflux dise ase with esophagitis without hemorrhage 12/01/2020 Overview (12/12/2020): Added automatically from request for surgery [id number] Assessment & Plan (04/10/2022 4:05 PM CDT): [...] propped. Assessment & Plan (10/26/2021 7:59 AM COSTUME DIRECTOR): HPI: Condition is stable no longer taking [...] prozac 20mg daily, continue to see Dr. Hina jose at [facility] Assessment & Plan (10/26/2021 7:56 AM COSTUME DIRECTOR): Patient reiterated no suicidal thoughts at this time; take medication as directed; contact 911 and go to the ER if becomes suicidal; discussed side effects of medication with patient; encouraged healthy diet and exericise; encouraged patient to see a counselor HPI: Condition is stable A&P: Discussed/ordered labs, encouraged healthy, low carbohydrate lifestyle and at least 150min/week of exercise, continue Seeing Dr. Santamaria Psych [facility], Continue on Prozac 20 mg daily Assessment [...] exercise, continue seeing Dr. Santamaria (psych at [facility]), Prozac daily-may take 20 mg daily except [...] exercise, continue seeing Dr. Santamaria (psych at [facility]),buspirone 10 mg as needed up to 3 [...] stable pt seeing Dr. Santamaria (psych at [facility]) A&P: Discussed/ordered labs, encouraged healthy, low carbohydrate [...] see a counselor HPI: Condition is stable promatt has been helping with obsessing over her [...] 02/03/2021 Assessment & Plan (11/21/2020 9:23 AM COSTUME DIRECTOR): Condition is worsening. Will start on daily anxiety medication, Fluoxetine 10mg and Buspar prn until Fluoxetine can take full effect. Patient also encouraged to do counseling. [facility] was also given list of counselors [...] 08/30/2020 Assessment & Plan (09/29/2024 4:04 PM COSTUME DIRECTOR): BMI Follow-up includes: nutrition counseling, exercise counseling, [...] in your mouth on an kojo like TagaPet Lower carb substitutions: Aldi carries a zero [...] in much longer they will become mushy Winder and/or coconut flour instead of regular flour [...] pork rinds For yogurt, try Two Good anguillan yogurt Use Juli for recipe ideas. Type [...] in your mouth on an kojo like TagaPet or Humansized Aldi carries a zero net carb bread [...] in much longer they will become mushy Winder and/or coconut flour instead of regular flour [...] pork rinds For yogurt, try Two Good anguillan yogurt Use Pinterest for recipe ideas. Type in low carb... Assessment & Plan (10/30/2021 11:40 AM COSTUME DIRECTOR): HPI: Condition is not at/near goal goal BMI <30 A&P: Healthy, high-protein, lower carbohydrate, lower fat lifestyle and exercise for 150min/week recommended Substitutions: Recommend tracking everything you put in your mouth on an kojo like TagaPet or Humansized Aldi carries a zero net carb bread [...] in much longer they will become mushy Winder and/or coconut flour instead of regular flour [...] pork rinds For yogurt, try Two Good anguillan yogurt Use Pinterest for recipe ideas. Type in low carb... Assessment & Plan (10/26/2021 1:42 PM COSTUME DIRECTOR): HPI: Condition is improving, but not at goal goal BMI <30 Pt is eating more low carb lifestyle. She has lost 3 pounds since the first of the year. A&P: Healthy, high-protein, lower carbohydrate, lower fat lifestyle and exercise for 150min/week recommended Substitutions: Recommend tracking everything you put in your mouth on an kojo like TagaPet or Humansized Aldi carries a zero net carb bread [...] in much longer they will become mushy Winder and/or coconut flour instead of regular flour [...] pork rinds For yogurt, try Two Good anguillan yogurt Use Pinterest for recipe ideas. Type in low carb... Assessment & Plan (10/24/2021 10:51 AM COSTUME DIRECTOR): Healthy, low carbohydrate lifestyle and exercise for 150min/week recommended Assessment & Plan (07/26/2021 12:07 PM CDT): HPI: Condition is not at/near goal goal BMI <30 A&P: Healthy, high-protein, lower carbohydrate, lower fat lifestyle and exercise for 150min/week recommended Substitutions: Recommend tracking everything you put in your mouth on an kojo like TagaPet or LensVectori carries a zero net carb bread If [...] in much longer they will become mushy Winder and/or coconut flour instead of regular flour [...] pork rinds For yogurt, try Two Good anguillan yogurt Use Pinterest for recipe ideas. Type in low carb... Assessment & Plan (05/19/2021 7:19 AM CDT): HPI: Condition is not at/near goal goal BMI <30 A&P: Healthy, high-protein, lower carbohydrate, lower fat lifestyle and exercise for 150min/week recommended Substitutions: Recommend tracking everything you put in your mouth on an kojo like TagaPet or LensVectori carries a zero net carb bread If [...] in much longer they will become mushy Winder and/or coconut flour instead of regular flour [...] pork rinds For yogurt, try Two Good anguillan yogurt Use Pinterest for recipe ideas. Type in low carb... Assessment & Plan (04/07/2021 7:24 AM CDT): HPI: Condition is not at/near goal goal BMI <30 A&P: Healthy, high-protein, lower carbohydrate, lower fat lifestyle and exercise for 150min/week recommended Substitutions: Recommend tracking everything you put in your mouth on an kojo like TagaPet or Humansized Aldi carries a zero net carb bread [...] in much longer they will become mushy Winder and/or coconut flour instead of regular flour [...] pork rinds For yogurt, try Two Good anguillan yogurt Use Pinterest for recipe ideas. Type in low carb... Assessment & Plan (01/04/2021 6:48 AM CDT): HPI: Condition is stable A&P: Healthy, low carbohydrate lifestyle and exercise for 150min/week recommended Substitutions: Recommend tracking everything you put in your mouth on an kojo like TagaPet Johni carries a zero net carb bread If [...] in much longer they will become mushy Winder and/or coconut flour instead of regular flour [...] pork rinds For yogurt, try Two Good anguillan yogurt Use Pinterest for recipe ideas. Type in low carb... Assessment & Plan (11/21/2020 9:21 AM COSTUME DIRECTOR): Healthy, low carbohydrate lifestyle and exercise for 150min/week recommended Assessment & Plan (10/28/2020 3:25 PM COSTUME DIRECTOR): HPI: Condition is worsening A&P: Healthy, low [...] in much longer they will become mushy Winder and/or coconut flour instead of regular flour For pizza dough, try fathead pizza dough recipe online. To get a crispy crust, bake on one side for 8-12 min, then flip over and bake on the other side for 8-12 min, then put toppings on and bake until the cheese on top of pizza melts chaffles recipe online For ice cream, try the brand Enllashandaened Use Pinterest for recipe ideas. Type in low carb... Assessment & Plan (08/30/2020 11:51 AM COSTUME DIRECTOR): HPI: Condition is fluctuating 5-10 pounds A&P: [...] in much longer they will become mushy Winder and/or coconut flour instead of regular flour [...] (01/28/2021): Added automatically from request for surgery [id number] Assessment & Plan (02/23/2021 1:08 PM CDT): [...] needed Assessment & Plan (10/26/2021 7:59 AM COSTUME DIRECTOR): HPI: Condition is stable A&P: Discussed/ordered labs, [...] EGD Assessment & Plan (12/11/2020 9:56 AM COSTUME DIRECTOR): This condition will require cholecystectomy, so will refer to surgery after the EGD. Chest pain 12/01/2020 01/24/2022 Overview (12/01/2020): Added automatically from request for surgery [id number] Assessment & Plan (01/24/2022 12:05 PM CDT): Assessment & Plan (01/04/2021 8:25 AM CDT): HPI: Condition is stable A&P: Discussed/ordered labs, encouraged healthy, low carbohydrate lifestyle and at least 150min/week of exercise, reviewed Holter monitor and echocardiogram-both unremarkable Take bp cuff into office when you see cardiology later this week. GERD (gastroesophageal reflux disease) 10/28/2020 07/14/2021 Assessment & Plan (12/11/2020 9:50 AM COSTUME DIRECTOR): Patient atypical symptoms of chest pain. Discussed GERD diet. Increase Omeprazole to twice daily. chedule EGD. Follow up after the EGD. RUQ pain 09/28/2020 10/26/2021 Immunizations Immunization Administration Dates Next Due Influenza, Quadrivalent, Spl it, Intramuscular 08/26/2018 Influenza, Quadrivalent, Spl it, Preservative Free, Intramuscular 07/25/2022,09/05/2016 Influenza, Trivalent, IM (MDV) 07/16/2015 Influenza, Trivalent, Preser vative Free, Intramuscular 08/18/2024 Influenza, Unspecified 06/18/2023(Deferr ed: Patient Refused),10/21/2022(Deferred: Patient Refused),01/23/2022(Deferred: Patient Refused),07/26/2021(Deferred: Patient Refused),07/25/2021(Deferred: Patient Refused),07/21/2021(Deferred: Patient Refused),06/21/2021(Deferred: Patient Refused),07/21/2020(Deferred: Patient Refused),07/21/2020(Deferred: Patient Refused),07/21/2020(Deferred: Patient Refused),06/21/2020(Deferred: Patient Refused),07/21/2019(Deferred: Patient Refused),07/21/2019(Deferred: Patient Refused),09/05/2016 Social History Tobacco Use Types Packs/Day Years [...] Orientation Straight 07/05/2021 12 :09 PM CDT Last Filed Vital Signs Vital Sign Reading Time Taken Comments Blood Pressure 102/74 11/14/2024 1:30 PM COSTUME DIRECTOR Pulse 96 11/14/2024 1:30 PM COSTUME DIRECTOR Temperature 36.1 C (97 F) 11/14/2024 9:26 AM COSTUME DIRECTOR Respiratory Rate 25 11/14/2024 1:30 PM COSTUME DIRECTOR Oxygen Saturation 92% 11/14/2024 1:30 PM COSTUME DIRECTOR Inhaled Oxygen Concentration - - Weight 115.7 kg (255 lb) 11/14/2024 9:28 AM COSTUME DIRECTOR Height 160 cm (5' 3 ) 11/02/2024 11:35 AM COSTUME DIRECTOR Body Mass Index 45.17 11/02/2024 11:35 AM COSTUME DIRECTOR Plan of Treatment Not on file Medical Devices Implanted Type Area Brick Tosser Device Identifier Shelf Expiration Date Model / Serial / Lot [employer] [id number] Device Closure Vascade Od5 Fr Femoral Artery - [id number] - [id number] Implanted:Qty: 1 on 08/01/2021 by Chava Etienne MD at [facility] Collagen [employer] 03/13/2023 [id number] -[id number] / [id number] / [id number] [employer] [id number] System 6-12fr Mvp Venous Closure Vascade - [id number] - [id number] Implanted:Qty: 1 on 08/01/2021 by Chava Etienne MD at [facility] Collagen [employer] 05/22/2023 [id number] / [id number] / [id number] [employer] [id number] Device Closure Vascade Od5 Fr Femoral Artery - [id number] - [id number] Implanted:Qty: 1 on 08/01/2021 by Chava Etienne MD at [facility] Collagen [employer] 03/13/2023 [id number] -[id number] / [id number] / [id number] AptDecoroniTamr Biomonitor Iii Monitor Cardiac Sterile Disposable Latex Free [id number] - [id number] - [id number] Implanted:Qty: 1 on 03/13/2023 by Bandar Leija MD at [facility] Implantable Loop Recorder Moasis 07/20/2024 [id number] / [id number] / Procedures Procedure Name Priority Date/Time Associated Diagnosis Comments DEVICE CHECK - REMOTE Routine 12/17/2024 1:15 PM COSTUME DIRECTOR Cardiac arrhythmia, unspecified cardiac arrhythmia type PSVT (paroxysmal supraventricular tachycardia) Implantable loop recorder present TROPONIN T HIGH-SENSITIVITY 2-HOUR Timed 11/14/2024 12:31 PM COSTUME DIRECTOR EGFR STAT 11/14/2024 10:12 AM COSTUME DIRECTOR DIFFERENTIAL AUTO STAT 11/14/2024 10:12 AM COSTUME DIRECTOR TROPONIN T HIGH-SENSITIVITY SERIES (BASELINE, 2HR, 4HR, 6HR) STAT 11/14/2024 10:12 AM COSTUME DIRECTOR COMPREHENSIVE METABOLIC PANEL STAT 11/14/2024 10:12 AM COSTUME DIRECTOR CBC WITH AUTO DIFFERENTIAL STAT 11/14/2024 10:12 AM COSTUME DIRECTOR XR CHEST 1 VIEW ED 11/14/2024 9:59 AM COSTUME DIRECTOR ECG 12-LEAD STAT 11/14/2024 9:32 AM COSTUME DIRECTOR DEVICE CHECK - REMOTE Routine 11/12/2024 8:48 AM COSTUME DIRECTOR PSVT (paroxysmal supraventricular tachycardia) Tachycardia Implantable loop recorder present ECG 12-LEAD Routine 11/10/2024 2:30 PM COSTUME DIRECTOR Cardiac arrhythmia, unspecified cardiac arrhythmia type ELECTROCARDIOGRAM REPORT Routine 11/02/2024 1:25 PM COSTUME DIRECTOR PSVT (paroxysmal supraventricular tachycardia) DEVICE CHECK - REMOTE Routine 10/08/2024 2:21 PM COSTUME DIRECTOR PSVT (paroxysmal supraventricular tachycardia) Tachycardia Implantable loop recorder present PAP AND HPV, REFLEX TO HPV GENOTYPES Routine 01/03/2024 10:43 AM CDT Well woman exam from Last 3 Months or Most Recently Relevant to Health Maintenance Results * DEVICE CHECK - REMOTE (12/17/2024 1:15 PM COSTUME DIRECTOR) Anatomical Region Laterality Modality Other Narrative 12/21/2024 3:37 PM COSTUME DIRECTOR Images from the original result were not included. 12/18/2024 [employer] monthly remote check The complete report is attached and is also available in Visit Navigator under Color Expert Three HVR episodes 4 min16 sec longest AT/AF [place]: 0.0% of Day Next Appointment: 2025 with [...] Troponin T high-sensitivity 2-hour (11/14/2024 12:31 PM COSTUME DIRECTOR) Trop T hs <6 <=14 ng/L Comment: Interpretive Data For further hscTnT resources including the diagnostic algorithm and an aid in interpretation, copy and paste this link: https://nrl.testcatalog.org/show/hsTrop Current Interpretive Data last revised 2020. Trop T hs delta 0 ng/L [facility] ([place]) Trop T hs interp Insignificant [facility] ([place]) Blood 11/14/2024 12:3 1 PM COSTUME DIRECTOR 11/14/2024 12:34 PM COSTUME DIRECTOR us Shirley Ellis MD LAB BLOOD ORDERABLE S Final Result [facility] [address] [place] [address] [place] [address] * Troponin T high-sensitivity series (baseline, 2hr, 4hr, 6hr) (11/14/2024 10:12 AM COSTUME DIRECTOR) [facility] Trop T hs <6 <=14 ng/L Comment: Interpretive Data For further hscTnT resources including the diagnostic algorithm and an aid in interpretation, copy and paste this link: https://nrl.testcatalog.org/show/hsTrop Current Interpretive Data last revised 2020. Blood 11/14/2024 10:1 2 AM COSTUME DIRECTOR 11/14/2024 10:16 AM COSTUME DIRECTOR us Lucia Vazquez MD LAB BLOOD ORDERABLES Teena l Result [facility] [address] [place] [address] [place] [address] * eGFR (11/14/2024 10:12 AM COSTUME DIRECTOR) [facility] eGFR >90 >=60 mL/min/1. 73 m2 Comment: [...] reviewed 2021. Blood 11/14/2024 10:1 2 AM COSTUME DIRECTOR 11/14/2024 10:16 AM COSTUME DIRECTOR us Shirley Ellis MD LAB BLOOD ORDERABLE S Final Result [facility] [place] [address] * Differential, auto (11/14/2024 10:12 AM COSTUME DIRECTOR) Neutrophil abs 3.6 1.5 - 6.5 K/cumm [...] on 2018. Blood 11/14/2024 10:1 2 AM COSTUME DIRECTOR 11/14/2024 10:16 AM COSTUME DIRECTOR us Shirley Ellis MD LAB BLOOD ORDERABLE S Final Result [facility] ([place]) 1 [facility] Department of Laboratories [place], [place] [id number] * (ABNORMAL) CBC with auto differential (11/14/2024 10:12 AM COSTUME DIRECTOR) WBC 6.8 3.8 - 9.9 K/cumm Hgb [...] blood specimen / Unknown 11/14/2024 10:12 AM COSTUME DIRECTOR 11/14/2024 10:16 AM COSTUME DIRECTOR us Lucia Vazquez MD LAB BLOOD ORDERABLES Teena mike Result [facility] ([place]) 1 [facility] Department [place] [address] * (ABNORMAL) Comprehensive metabolic panel (11/14/2024 10:12 AM COSTUME DIRECTOR) Sodium 134(L) 135 - 145 mmol/L Potassium, [...] (D[place]) Glucose 87 70 - 199 mg/dL [facility] ([place] Comment: Interpretive Data Fasting glucose [...] [facility] ([facility]) Blood 11/14/2024 10:1 2 AM COSTUME DIRECTOR 11/14/2024 10:16 AM COSTUME DIRECTOR us Lucia Vazquez MD LAB BLOOD ORDERABLES Teena mike Result [facility] ([place]) [address] [facility] Department [place] [address] * XR Chest 1 Vw Portable (if patient condition/safety warrant portable) (11/14/2024 9:59 AM COSTUME DIRECTOR) Anatomical Region Laterality Modality Body, Chest N/A Computed Radiogr aphy 11/14/2024 10:2 7 AM COSTUME DIRECTOR Narrative 11/14/2024 10:29 AM COSTUME DIRECTOR EXAM DESCRIPTION: XR CHEST 1 VIEW REASON [...] Evaristo Krishnan M.D. MM: MM Report ID: [id number] Reading Location: [id number] Procedure Note Evaristo Krishnan MD - 11/14/2024 [...] Evaristo Krishnan M.D. MM: MM Report ID: [id number] Reading Location: [id number] Lucia Vazquez MD IMG XR PROCEDURES Final R esult * ECG 12 lead (11/14/2024 9:32 AM COSTUME DIRECTOR) 11/14/2024 9:32 AM COSTUME DIRECTOR Narrative [facility] - 11/14/2024 10:10 AM COSTUME DIRECTOR Vent Rate: 79 bpm RR Interval: 757 msec SD Interval: 154 msec QRS Duration: 84 msec QT Interval: 369 msec QTC Interval: 403 msec P-R-T [place]: 19 - 7 - 30 degrees IMPRESSION: SINUS RHYTHM NORMAL ECG Electronically Signed By: Steven Jones MD, [facility] Lucia Vazquez MD ECG ORDERABLES Final Res ult [facility] * DEVICE CHECK - REMOTE (11/12/2024 8:48 AM COSTUME DIRECTOR) Anatomical Region Laterality Modality Other Narrative 11/13/2024 3:56 PM COSTUME DIRECTOR Images from the original result were not included. 11/13/2024 [employer] monthly remote check The complete report is attached and is also available in Visit Navigator under Color Expert Last periodic IEGM: HVR episode from 10/16/2024 [...] * ECG 12 lead (11/10/2024 2:30 PM COSTUME DIRECTOR) 11/10/2024 2:30 PM COSTUME DIRECTOR us Santos Beckham MD ECG ORDERABLES Final Re sult * Electrocardiogram Report (11/02/2024 1:25 PM COSTUME DIRECTOR) Rm Olguin MD ECG ORDERABLES Final Res ult * DEVICE CHECK - REMOTE (10/08/2024 2:21 PM COSTUME DIRECTOR) Anatomical Region Laterality Modality Other Narrative 10/09/2024 10:22 PM COSTUME DIRECTOR Images from the original result were not included. 10/09/2024 [employer] monthly remote check The complete report is attached and is also available in Visit Navigator under Color Expert Last periodic IEGM 10/09/2025: HVR episode on [...] Genotypes (01/03/2024 10:43 AM CDT) CLINICAL INFORMATION: [facility] Comment:SCREENING LMP [facility] Comment:12/12/23 Previous Pap [facility] Comment:NONE GIVEN Prev. Bx [facility] Comment:NONE GIVEN SOURCE: [facility] Comment:Cervix, Endocervix Pap, specimen adequacy [facility] Comment: Satisfactory for evaluation. Endocervical/transformation zone component present. HPV interp [facility] Comment: Cytology Results: Negative for intraepithelial lesion or malignancy. COMMENTS [facility] Comment: This Pap test has been evaluated with computer assisted technology. Alumni Coordinator [facility] Comment: YQ, CT(ASCP) CT screening location: [place] [id number] [place] [address] Comment [facility] Comment: EXPLANATORY NOTE: The Pap is a [...] High Risk E6/E7 Not Detected NOT DETECTED [facility] Comment: Not Detected High Risk HPV types (16,18,31,33,35,39,45,51,52, 56,58,59,66,68) were not detected. Other HPV types which cause anogenital lesions may be present. The significance of the other types of HPV in malignant processes has not been established. Methodology: Real Time PCR Thin prep 01/03/2024 10:4 3 AM CDT 01/06/2024 9:13 AM CDT us Ellen Gomez MANAGER MACHINE LAB CYTOLOGY ORDERABLES Final Re sult [place] [address] [place] [address] [facility]/[place] [address] [facility] [place] [address] from Last 3 Months or Most Recently Relevant to Health Maintenance Insurance [facility] [place] [id number] [facility] Advance Directives For more information, please contact: [phone] * Full Code (Latest Code Status on [...] 5:32 PM 12/01/2018 6:54 PM Care Teams Scientific Photographer Relationship Specialty Start Date End Date Shashi Patel MD [address] [address] PCP - General Family Medicine 08/06/22 Caty Tristan, PT Physical Therapist Physical Therapy 03/09/22 Ellen Gomez, MANAGER MACHINE [address] [place] [address] [address] [address] Obstetrics and Gynecology 04/10/22
--- OUTSIDE RECORDS SUMMARY | 2025-01-04 18:23 | XMS_ITS | Encounter Summary ---
Author Organization [facility] Healthcare Address [address] [place] [address] Care Team Providers Care Fish And Wildlife Scientific Aid Name Role Phone Caty Tristan PT Unavailable [facility] Ellen Weiss METER/RELAY CRAFTSMAN Unavailable Shashi Patel MD Primary Care Provider [phone] Reason for Visit * Reason Onset Date Comments Abdominal Pain 01/04/2025 Encounter Details Date Type Department Care Team (Late st Contact Info) Description 01/04/2025 Nurse Triage [facility] Medical Group Primary Care at [address] [address] Shashi Patel MD [address] [place] [address] [address] [place] [address] Social History Tobacco Use Types Packs/Day Years Used Date Smoking Tobacco: Former Cigarettes 0.5 11 0 10/21/2008 - 10/21/2019 Smokeless Tobacco: Never Alcohol Use Standard Drinks/Week Comments No 0 (1 standard drink = 0.6 oz pur e alcohol) AUDIT-C Answer Date Recorded Q1: How often do you have a drink containing alc ohol? Never 12/13/2023 Average Number of Drinks Not on file 024 Frequency of Binge Drinking Not on file 02/2 12/2023 PHQ-2 Answer Date Recorded PHQ-2 Total Score [...] Orientation Straight 07/05/2021 12 :09 PM CDT documented as of this encounter Miscellaneous Notes * Telephone Encounter - Barbara Chirinos RN - 01/04/2025 11:18 AM CDT Patient called with C/O abdominal pain for the past 3 days. Pain is located in RUQ. She has had hergallbladder removed. Patient sent message to Dr. Abdi, [facility], today, they cannot see her today, offered appt tomorrow. Pain is constant. Rates her pain as moderate. States it hurts to press on the area. Denies fever, vomiting or diarrhea. C/O abdominal bloating. Triage Protocol Recommends - Go to ER/UCC Now or to Office with PCP Approval. SC sent to CALV[facility] Resendez. Response received from CALVIN Stanley and CALV[facility] Resendez, if cannot wait to be seen in GI office today, to go to ER. I spoke with patient who states she will go to [facility] now. Care Advice Given: NPO until seen, have someone drive you Educated patient to call back if worsens, new symptoms develop or has further questions/concerns Provider contacted via secure chat for ED disposition consult. Recommendation from provider:Other: If can't wait for appt in GI office tomorrow, go to ER today Reason for Disposition Pain is mainly in upper abdomen (if needed ask: 'is it mainly above the belly button?') MILD TO MODERATE constant pain lasting > 2 hours Protocols used: Abdominal Pain - Bqgwut-Ohiab-TL, Abdominal Pain - Foddg-Lyojd-KG * Telephone Encounter - Barbara Chirinos RN - 01/04/2025 11:13 AM CDT Regarding: Abdominal Pain ----- Message from Rui Ratliff sent at 01/04/2025 10:17 AM CDT ----- Symptom Based Call Chief Complaint(s): Abdominal Pain Duration: 3 days What type of symptom(s) is the patient experiencing? Non-Emergent. Is this a new or reoccurring symptom(s)? New What have you tried to help your symptom(s)? N/a Why was appointment not scheduled? Appointment availability did not meet the patient's need. Additional Comments: Patient reports moderate RUQ pain. Patient states she has had her gallbladder removed. Patient states she has not had anything to eat or drink today and has not taken any medication. First available appt at this time is 01/18. Also see Zixi message to GI. Does message need to be routed? Yes-Action Needed documented in this encounter Plan of Treatment Not on file documented as of this encounter Visit Diagnoses Not on filedocumented in this encounter Care Teams Fish And Wildlife Scientific Aid Relationship Specialty Start Date End Date Shashi Patel MD [address] [facility] [address] [place] [address] PCP - General Family Medicine 08/06/22 Caty Tristan, PT Physical Therapist Physical Therapy 03/09/22 Ellen Gomez NP [address] [place] [address] [address] [address] Obstetrics and Gynecology 04/10/22 documented as of this encounter
--- OUTSIDE RECORDS SUMMARY | 2025-01-04 18:23 | XMS_ITS | Patient Health Summary ---
Author Organization [facility] Language Cloud Address [address] [place] [address] Care Team Providers Care Tier Lift Truck Operator Name Role Phone Unavailable Primary Care Provider Unavailabl e Note from [facility],non-owned Affiliates and Associated Physician Practices is amultiple site organization consisting of ambulatory clinics and hospital sitesin [place], [place], [place] and [place]. This disclosure is being madepursuant to the Care Everywhere program and may not contain all information available regarding this patient. Last updated 18.[facility] Language [employer] Allergies * Pertussis Vaccine(Anaphylaxis) -High Criticality Medications * Be aware that medications may not be up to date on this document. Alwaysverify current medications with the patient. * Iron Active Problems Problem Noted Date Diagnosed Date [...] Mass Index 32.77 01/10/2017 10:53 AM CDT Procedures * CARDIAC EKG ORDER(Performed 01/12/2017) * HCG URINE QUALITATIVE - POINT OF CARE(Performed 01/10/2017) * EKG 12-LEAD(Performed 01/10/2017) Performed for Near syncope * BASIC METABOLIC PANEL (CALCIUM TOTAL)(Performed 01/10/2017) * CBC W AUTO DIFFERENTIAL(Performed 01/10/2017) * LAB RESULTS ORDER(Performed 03/24/2015) * CBC W AUTO DIFFERENTIAL(Performed 03/22/2015) * HGB HCT PANEL(Performed 03/22/2015) * NEURAXIAL BLOCK(Performed 03/21/2015) * URINALYSIS REFLEX TO MICROSCOPIC NO CULTURE(Performed 03/20/2015) * CBC W AUTO DIFFERENTIAL(Performed 03/20/2015) * URINALYSIS REFLEX MICROSCOPIC REFLEX CULTURE(Performed 03/19/2015) Performed for (HCC) * CULTURE URINE(Performed 03/19/2015) Performed for (HCC) * URINALYSIS REFLEX MICROSCOPIC REFLEX CULTURE(Performed 03/09/2015) Performed for Screening * CULTURE URINE(Performed 03/09/2015) Performed for Screening * BASIC METABOLIC PANEL (CALCIUM TOTAL)(Performed 12/28/2014) * CBC W AUTO DIFFERENTIAL(Performed 12/28/2014) * XR CHEST 1VW(Performed 12/28/2014) * CULTURE STREP GROUP A(Performed 12/28/2014) * INFLUENZA A+B ANTIGEN RAPID(Performed 12/28/2014) * STREP A SCREEN DIRECT W RFLX STREP A CULTURE(Performed 12/28/2014) * URINE MICROSCOPIC ONLY REFLEX TO CULTURE(Performed 11/19/2014) Performed for Screening * URINALYSIS REFLEX MICROSCOPIC REFLEX CULTURE(Performed 11/19/2014) Performed for Screening * CULTURE URINE(Performed 11/19/2014) Performed for Screening Results * CARDIAC EKG ORDER (01/12/2017 1:18 AM CDT) Narrative 01/12/2017 1:18 AM CDT Ordered by an unspecified provider. Scanned Document CARDIAC SERVICES ORD ERABLES * HCG URINE QUALITATIVE - POINT OF CARE (IP) (01/10/2017 12:56 PM CDT) HCG Qual Urine Negative Negative [facility] POCT TESTING QC Verified Yes Yes [facility] POC T TESTING Urine URINE / Unknown 01/10/2017 1 2:56 PM CDT Ravi Tom DO LAB - POINT OF CAR E ORDERABLES [facility] [address] [place] [address], [facility] * EKG 12-LEAD (01/10/2017 10:57 AM CDT) Ventricular Rate 61 BPM [facility] MUSE Atrial Rate 61 BPM [facility] MUSE P-R Interval 142 ms [facility]USE QRS Duration ms 74 ms [facility] MUSE Q-T Interval ms 432 ms [facility] MUSE QTC Calculation (Bezet) 434 ms [facility] MUSE Calculated P [place] -12 degrees [facility] MUSE Calculated R [place] 23 degrees [facility] MUSE Calculated T [place] 31 degrees [facility] MUSE Interpretation EKG Normal sinus rhythm with sinus arrhythmia Normal ECG No previous ECGs available Confirmed by MD DARYL, JOE Burton ([id number]) on 01/11/2017 8:17:38 AM [facility] MUSE 01/10/2017 10:5 7 AM CDT 01/11/2017 8:17 AM CDT Ravi Tom DO ECG ORDERABLES [facility] MUSE * (ABNORMAL) CBC W AUTO DIFFERENTIAL (01/10/2017 10:57 AM CDT) Only the most recent of4 resultswithin the time period is included. WBC 9.8 4.4 - 10.7 x10E9/L 01/10/2017 11:05 AM CDT [facility] WBC Corrected x10E9/L 01/10/2017 11:05 AM CDT [facility] RBC 4.88 3.80 - 5.20 x10E12/L 01/10/2017 11:05 AM [facility] Hemoglobin 13.1 12.0 - 15.6 gm/dL 01/10/2017 11:05 AM [facility] Hematocrit 40.8 35.9 - 45.5 % 01/10/2017 11:05 AM [facility] MCV 83.6 80.7 - 98.3 fl 01/10/2017 11:05 AM [facility] MCH 26.8 26.7 - 34.0 pg 01/10/2017 11:05 AM [facility] MCHC 32.1 30.8 - 35.9 gm/dL 01/10/2017 11:05 AM [facility] Platelet Count 474(H) 153 - 416 x10E9/L 01/10/2017 11:05 AM [facility] RDW-CV 13.9 12.1 - 14.9 % 01/10/2017 11:05 AM [facility] MPV 9.5 9.4 - 12.9 fl 01/10/2017 11:05 AM [facility] Neutrophils % 54.1 44.0 - 73.0 % 01/10/2017 11:05 AM [facility] Lymphocytes % 36.9 20.0 - 43.0 % 01/10/2017 11:05 AM [facility] Monocytes % 5.0 5.0 - 13.0 % 01/10/2017 11:05 AM [facility] Eosinophils % 2.9 0.0 - 6.0 % 01/10/2017 11:05 AM [facility] Basophils % 0.8 0.0 - 2.0 % 01/10/2017 11:05 AM [facility] Immature Granulocytes 0.3 0 - 1 % 01/10/2017 11:05 AM [facility] Neutrophil Absolute 5.29 2.01 - 7.14 x10E9/L 01/10/2017 11:05 AM [facility] Lymphocytes Absolute 3.61 1.07 - 3.94 x10E9/L 01/10/2017 11:05 AM [facility] Monocytes Absolute 0.49 0.26 - 1.07 x10E9/L 01/10/2017 11:05 AM [facility] Eosinophils Absolute 0.28 0 - 0.47 x10E9/L 01/10/2017 11:05 AM [facility] Basophils Absolute 0.08 0 - 0.08 x10E9/L 01/10/2017 11:05 AM [facility] Immature Granulocytes Absolute 0.03 0.00 - 0.06 x10E9/L 01/10/2017 11:05 AM [facility] nRBC Auto 0 /100 WBC 01/10/2017 11:05 AM [facility] Blood BLOOD SPECIMEN / Unknown 01/10/2017 10:57 AM CDT 01/10/2017 11:02 AM CDT Ravi Tom DO LAB - HEMATOLOGY O RDERABLES [facility] [address] [address] * (ABNORMAL) BASIC METABOLIC PANEL (CALCIUM TOTAL) (01/10/2017 10:57 AM CDT) Only the most recent of2 resultswithin the time period is included. Glucose 102 74 - 106 mg/dL 01/10/2017 11:21 AM [facility] Sodium 140 136 - 145 mmol/L 01/10/2017 11:21 AM [facility] Potassium 3.7 3.5 - 5.1 mmol/L 01/10/2017 11:21 AM [facility] Chloride 111(H) 98 - 107 mmol/L 01/10/2017 11:21 AM [facility] CO2 21(L) 22 - 31 mmol/L 01/10/2017 11:21 AM [facility] Calcium 8.6 8.5 - 10.1 mg/dL 01/10/2017 11:21 AM [facility] Anion Gap 8 8 - 16 mmol/L 01/10/2017 11:21 AM [facility] BUN 11 7 - 21 mg/dL 01/10/2017 11:21 AM [facility] Creatinine 0.92 0.50 - 1.30 mg/dL 01/10/2017 11:21 AM [facility] eGFR by MDRD >60 >60 mL/min/1.7 3m2 01/10/2017 11:21 AM CDT [facility] eGFR by MDRD >60 >60 mL/min/1.7 3m2 01/10/2017 11:21 AM CDT [facility] Blood BLOOD SPECIMEN / Unknown 01/10/2017 10:57 AM CDT 01/10/2017 11:02 AM CDT Ravi Tom DO LAB - CHEMISTRY OR DERABLES Performing Organization Address City/[facility]/ZIP Co de Phone Number [facility] [address] [place] [address] * LAB RESULTS ORDER (03/24/2015 11:04 PM CDT) Narrative 03/24/2015 11:04 PM CDT Ordered by an unspecified provider. Scanned Document LAB - THERAPEUTIC DR CHELSEA MONITORING ORDERABLES * (ABNORMAL) HGB HCT PANEL (03/22/2015 5:47 AM CDT) Hemoglobin 7.8(L) 12.0 - 15.6 gm/dL 03/22/2015 6:02 AM CDT [facility] Hematocrit 24.0(L) 35.9 - 45.5 % 03/22/2015 6:02 AM CDT [facility] Blood BLOOD SPECIMEN / Unknown Lab Venipuncture / Unknown 03/22/2015 5:47 AM CDT 03/22/2015 5:57 AM CDT Manisha Pablo MD LAB - HEMATOLOGY ORDERABLES Performing Organization Address City/[facility]/ZIP Co de Phone Number [facility] [address] [place] [address] * NEURAXIAL BLOCK (03/21/2015 5:14 AM CDT) Narrative Aj Ratliff APRN-CRNA - 03/21/2015 5:14 AM CDT KAREEM Montalvo 03/21/2015 5:14 AM NEURAXIAL BLOCK Patient Location: OB Pre Procedure Indication: labor analgesia Anticoagulation /Antithrombosis Status Confirmed: Yes Preanesthetic Checklist: patient identified, IV checked, site marked, risks and benefits discussed, surgical consent verified, monitors and equipment checked, pre-op evaluation done, timeout performed, informed consent obtained and questions answered / anesthesia plan accepted Monitors: BP, Pulse Ox, EKG and ETCO2 Patient Condition: awake Patient Position: sitting Procedure Block Performed: epidural Prep: Betadine Sterile Field: sterile gloves, sterile field established, cap/hat and mask Approach: midline Skin Numbed with: lidocaine 1.5% Epidural Needle Type: Tuohy Needle Gauge: 18 Needle Length: 3.5 in Placement Site: L2-L3 Number of Attempts: 1 Loss of ResistanceTechnique: saline Loss of Resistance: 5 cm Catheter Length at Skin: 10 cm CSF Aspirated from Catheter: negative Blood Aspirated from Catheter: negative Test Dose: lidocaine 1.5% with 1 200 k epinephrine 3 ml Test Dose Response: negative Local Anesthetic: lidocaine 2% Epidural additive: fentanyl Events CSF return negative injection not painful no paresthesia no other event Degree of Difficulty: none Position Post Procedure: supine Vital signs monitored and stable throughout. See Anesthesia Intraop record for details. heart tones monitored and stable throughout. Block Performed by: NABOR Manisha Pablo MD GENERAL ANESTHES [place] ORDERABLES * URINALYSIS ROUTINE AUTO (03/20/2015 6:41 PM CDT) Color UA Yellow Straw, Yellow, Dark Yellow 03/20/2015 9:26 PM [facility] Clarity UA Clear 03/20/2015 9:26 PM [facility] Specific [employer] UA 1.014 1.005 - 1.030 03/20/2015 9:26 PM [facility] pH UA 7.0 5.0 - 8.0 pH 03/20/2015 9:26 PM [facility] Protein UA Negative Negative 03/20/2015 9:26 PM T [facility] Blood UA Negative Negative 03/20/2015 9:26 PM [facility] Leukocyte UA Negative Negative 03/20/2015 9:26 PM CDT [facility] Nitrite UA Negative Negative 03/20/2015 9:26 PM [facility] Glucose UA Negative Negative 03/20/2015 9:26 PM [facility] Ketone UA Negative Negative 03/20/2015 9:26 PM [facility] Bilirubin UA Negative Negative 03/20/2015 9:26 PM [facility] Urobilinogen UA 1.0 0.1 - 1.0 EU/dL 03/20/2015 9:26 PM [facility] Urine URINE SPECIMEN OBTAINED BY CLEAN CATCH PROCEDURE / Unknown 03/20/2015 6:41 PM CDT 03/20/2015 9:19 PM CDT Manisha Pablo MD LAB - URINALYSIS ORDERABLES [facility] [address] [place] [address] * (ABNORMAL) URINALYSIS ROUTINE W/REFLEX TO CULTURE (03/19/2015 9:33 PM CDT) Only the most recent of3 resultswithin the time period is included. Color UA Yellow Straw, Yellow, Dark Yellow 03/19/2015 10:13 PM [facility] Clarity UA Cloudy 03/19/2015 10:13 PM [facility] Specific [employer] UA 1.015 1.005 - 1.030 03/19/2015 10:13 PM [facility] pH UA 7.0 5.0 - 8.0 pH 03/19/2015 10:13 PM [facility] Protein UA Negative Negative 03/19/2015 10:13 PM [facility] Blood UA Negative Negative 03/19/2015 10:13 PM [facility] Leukocyte UA Trace(A) Negative 03/19/2015 10:13 PM [facility] Nitrite UA Negative Negative 03/19/2015 10:13 PM [facility] Glucose UA Negative Negative 03/19/2015 10:13 PM [facility] Ketone UA Negative Negative 03/19/2015 10:13 PM [facility] Bilirubin UA Negative Negative 03/19/2015 10:13 PM [facility] Urobilinogen UA 1.0 0.1 - 1.0 EU/dL 03/19/2015 10:13 PM [facility] WBC UA Auto 10-20(A) 0-2, 2-5 # /hpf 03/19/2015 10:13 PM [facility] RBC UA Auto 2-5 0-2, 2-5 # /hpf 03/19/2015 10:13 PM [facility] Epithelial Cell UA Auto 5-10(A) 0-2, 2-5 # /hpf 03/19/2015 10:13 PM CDT [facility] Bacteria UA Auto 2+(A) None seen 03/19/2015 10:13 PM CDT [facility] Hyaline Casts UA Auto 2-5(A) 0 - 2 #/lpf 03/19/2015 10:13 PM CDT [facility] Reflex Status Culture to follow 03/19/2015 10:13 PM CDT [facility] Urine URINE SPECIMEN OBTAINED BY CLEAN CATCH PROCEDURE / Unknown 03/19/2015 9:33 PM CDT 03/19/2015 9:57 PM CDT Dafne Cohen MD LAB - URINALYSIS OR DERABLES Performing Organization Address City/[facility]/ZIP Co de Phone Number [facility] [address] [place] [address] * CULTURE URINE (03/19/2015 9:33 PM CDT) Only the most recent of3 resultswithin the time period is included. [facility] Culture 10,000-50,000 CFU/mL normal urogenital dale PETRA 03/21/2015 6:11 AM CDT [facility] Urine URINE SPECIMEN OBTAINED BY CLEAN CATCH PROCEDURE / Unknown 03/19/2015 9:33 PM CDT 03/19/2015 9:57 PM CDT Dafne Cohen MD LAB - MICROBIOLOGY ORDERABLES Performing Organization Address City/[facility] Co de Phone Number [facility] [address] [place] [address], [facility] [phone] * XR CHEST PA OR AP (12/28/2014 11:09 AM CDT) Anatomical Region Laterality Modality Chest Radiographic Ashley ging 12/28/2014 12:1 7 PM CDT Impressions 12/28/2014 12:18 PM CDT Lungs are clear. Narrative 12/28/2014 12:18 PM CDT Indication: Productive cough Findings: Portable chest. No comparisons. The upper abdomen is normal. Heart size is normal. There is patchy basilar atelectasis. There is otherwise clear. No focal lung consolidations. Procedure Note Pancho Mercado MD - 12/28/2014 Indication: Productive cough Findings: Portable chest. No comparisons. The upper abdomen is normal. Heart size is normal. There is patchy basilar atelectasis. There is otherwise clear. No focal lung consolidations. IMPRESSION Lungs are clear. Jean Marie Nathan PA-C DIAGNOSTIC IM AGING ORDERABLES * STREP A SCREEN DIRECT W RFLX STREP A CULTURE (12/28/2014 10:39 AM CDT) Strep A Rapid Negative Negative 12/28/2014 11:05 AM CDT [facility] Microbiology ENTIRE THROAT (SURFACE REGION OF NECK) / Unknown 12/28/2014 10:39 AM CDT 12/28/2014 10:48 AM CDT Narrative [facility] - 12/28/2014 11:05 AM CDT Test has reflexed to a Strep A culture. Saul James MD LAB - MICROBIOLOGY O RDERABLES [facility] [address] [place] [id number] * INFLUENZA A+B ANTIGEN RAPID (12/28/2014 10:39 AM CDT) Influenza A Antigen Negative Negative 12/28/2014 11:05 AM CDT [facility] Influenza B Antigen Negative Negative 12/28/2014 11:05 AM CDT [facility] Microbiology NASOPHARYNGEAL SWAB / Unknown 12/28/2014 10:39 AM CDT 12/28/2014 10:48 AM CDT Narrative [facility] - 12/28/2014 11:05 AM CDT The sensitivity of rapid tests for influenza A and B antigens, according to the published reports , ranges from 30-70% when compared to PCR and viral culture. For H1N1 influenza A, the sensitivity varies from 30-50%. For other influenza A strains, the sensitivity ranges from 50-70%. For influenza B virus, the sensitivity is approximately 30%. A negative result does not exclude influenza infection. False-positive (and true-negative) influenza test results are more likely to occur when disease prevalence is low, which is generally at the beginning and end of the influenza season. False-negative (and true-positive) influenza test results are more likely to occur when disease prevalence is high, which is typically at the height of the influenza season. Saul James MD LAB - MICROBIOLOGY O DONNIE Performing Organization Address [facility]/ZIP Co de Phone Number [facility] [address] [place] [address] * CULTURE STREP GROUP A (12/28/2014 10:39 AM CDT) Culture Negative for Beta Hemolytic Streptococcus Group A PETRA 12/30/2014 8:00 AM CDT [facility] Microbiology ENTIRE THROAT (SURFACE REGION OF NECK) / Unknown 12/28/2014 10:39 AM CDT 12/28/2014 10:48 AM CDT Saul James MD LAB - MICROBIOLOGY O DONNIE Performing Organization Address [facility] Co de Phone Number [facility] [address] [place] [address], [facility] * (ABNORMAL) URINALYSIS MICROSCOPIC ONLY W/REFLEX CULTURE (11/19/2014 9:22 PM AREA CLEANER) RBC UA 2-5 0-2, 2-5 # /hpf 11/19/2014 10:28 PM [facility] WBC UA 5-10(A) 0-2, 2-5 # /hpf 11/19/2014 10:28 PM [facility] Bacteria UA 1+(A) None Seen 11/19/2014 10:28 PM [facility] Epithelial Cell UA 5-10(A) 0-2, 2-5 11/19/2014 10:28 PM [facility] Mucus UA Trace 11/19/2014 10:28 PM [facility] Yeast UA 1+(A) None Seen 11/19/2014 10:28 PM [facility] Urine URINE SPECIMEN OBTAINED BY CLEAN CATCH PROCEDURE / Unknown 11/19/2014 9:22 PM AREA CLEANER 11/19/2014 9:30 PM AREA CLEANER Manisha Pablo MD LAB - URINALYSIS ORDERABLES [facility] [address] [place] [address]
--- OUTSIDE RECORDS SUMMARY | 2025-01-04 18:23 | XMS_ITS | Encounter Summary ---
Author Organization [employer] Address [address] [place] [address] Care Team Providers Care Financial Officer Name Role Phone Unavailable Primary Care Provider Unavailabl e Encounter Details Date Type Department Care Team (Late st Contact Info) Description 08/21/2003 Outpatient Historical [facility] Miranda Ledezma MD NO ADDRESS ON FILE Er, Authorized P NO ADDRESS ON FILE CONTUSION ABDOMINAL WALL (Primary Dx) Social History Tobacco Use Types Packs/Day Years Used Date Smoking Tobacco: Never Assessed Comments Unknown Sex and Gender Information Value Date Recorded Sex Assigned at Not on file Legal Sex Female 3:04 AM [employer] Gender Identity Not on file Sexual Orientation Not on file documented as of this encounter Plan of Treatment Not on file documented as of this encounter Visit Diagnoses Diagnosis Contusion of abdominal wall- Primary documented in this encounter
--- NOTE | 2025-01-04 19:29 | ED_ITS ---
HPI - Abdominal Pain General Chief Complaint: Abdominal Pain Stated Complaint: RUQ pain Time Seen by Provider: 01/04/25 18:45 Focused HPI: Patient is a 39-year-old female who presents to the ER with complaints of right upper quadrant pain and palpitations. She reports the pain started earlier today. Patient described the pain as bloating and pulsating. She endorses nausea but denies vomiting. Patient endorses a history of cholecystectomy and ?stomach ulcers. 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 GENERAL: Well-appearing, obese, and in no acute distress. HEAD: Normocephalic, atraumatic. CHEST: Clear to auscultation. ?No respiratory distress. HEART: Regular rate and rhythm.? NEURO: ?Alert and oriented x3. Patient screened in triage and initial orders placed.? ?Additional care and disposition to be based upon?diagnostic testing and treatment. Related Data Allergies Allergy/AdvReac Type Severity Reaction Status Date / Time Pertussis Vaccines Allergy Rash Verified 07/22/24 09:13 [facility] Past Medical History Medical History (Updated 01/05/25 @ 11:35 by Nina Wilson APRN) Anxiety GERD (gastroesophageal reflux disease) AVNRT (AV jerry re-entry tachycardia) Surgical History Surgical History (Updated 05/16/21 @ 14:47 by Halie Doyle NP) History of cholecystectomy History of tonsillectomy History of Family History Family History (Updated 05/16/21 @ 14:48 by Halie Doyle NP) Other No significant family history Social History Social History (Updated 05/16/21 @ 14:49 by Halie Doyle NP) Smoking status: Never smoker Alcohol intake: current Alcohol use details: rare social Substance use: never Living arrangements: with family Gender identity (if verbalized by the patient): Female Course Vital Signs Vital signs: Vital Signs Temperature 36.6 C 01/04/25 16:13 Pulse Rate 76 01/04/25 16:13 Respiratory Rate 17 01/04/25 16:13 Blood Pressure 153/90 H 01/04/25 16:13 Pulse Oximetry 100 01/04/25 16:13 Oxygen Delivery Room Air 01/04/25 16:13 Temperature 36.6 C 01/04/25 16:13 Pulse Rate 76 01/04/25 16:13 Respiratory Rate 17 01/04/25 16:13 Blood Pressure 153/90 H 01/04/25 16:13 Pulse Oximetry 100 01/04/25 16:13 Oxygen Delivery Room Air 01/04/25 16:13 Discharge Plan Discharge Clinical Impression: Atypical chest pain Patient Disposition: Elopement After Seen by Prov Instructions: Antibiotic Form Patient Language: Italian Prescriptions: No Action benzonatate 200 mg capsule 200 mg PO TID PRN (Reason: cough) Qty: 20 0RF prednisone 20 mg tablet 40 mg PO DAILY 5 Days Qty: 10 0RF amoxicillin 875 mg tablet 875 mg PO Q12H 10 Days Qty: 20 0RF Follow-up/Referrals: Amanda,Shashi Hoyt MD [Primary Care Provider] -
--- NOTE | 2025-01-04 22:33 | PC.NURSE ---
Pt approached triage desk stating that she was leaving due to wait times. Pt advised to be seen at the nearest ED for any worsening symptoms.
--- OUTSIDE RECORDS SUMMARY | 2025-01-05 01:37 | XMS_ITS | Clinical Summary ---
Author Organization [facility] Address [address] [place] [address] Phone Care Team Providers Care Pantograph Machine Operator Name Role Phone Shashi Patel MD Primary Care Provider [phone] Social History Tobacco Use Types Packs/Day Years [...] Insurance MEDICAID [employer] Care Teams Pantograph Machine Operator Relationship Specialty Start Date End Date Shashi Patel MD [address] [place] [address] PCP - General Family Medicine 07/30/22
--- OUTSIDE RECORDS SUMMARY | 2025-01-05 01:37 | XMS_ITS | Encounter Summary ---
Author Organization [facility] Address 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
--- OUTSIDE RECORDS SUMMARY | 2025-01-05 01:37 | XMS_ITS | Clinical Summary ---
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
--- OUTSIDE RECORDS SUMMARY | 2025-01-05 01:37 | XMS_ITS | Encounter Summary ---
Author Organization [facility] Healthcare Address [address] [place] [address] Care Team Providers Care Manufacturing Coordinator Name Role Phone Caty Tristan PT Un[facility] Ellen Weiss NAIL WELTER Unavailable Shashi Patel MD Primary Care Provider [phone] Reason for Visit * Reason Onset Date Comments Abdominal Pain 01/04/2025 Encounter Details Date Type Department Care Team (Late st Contact Info) Description 01/04/2025 Nurse Triage [facility] Medical Group Primary Care at [address] [address] Shashi Patel MD [address] [place] [address] [address] [place] [address] Social History Tobacco Use Types [...] patient who states she will go to [facility] now. Care Advice Given: NPO until [...] 2 hours Protocols used: Abdominal Pain - Ioravz-Rqpjf-OY, Abdominal Pain - Kclxj-Uqypm-QP * Telephone Encounter - Barbara Chirinos RN [...] at this time is 01/18. Also see [employer] message to GI. Does message need to be routed? Yes-Action Needed documented in this encounter Plan of Treatment Not on file documented as of this encounter Visit Diagnoses Not on filedocumented in this encounter Care Teams Manufacturing Coordinator Relationship Specialty Start Date End Date Shashi Patel MD [address] [facility] [address] [place] [address] PCP - General Family Medicine 08/06/22 Caty Tristan, PT Physical Therapist Physical Therapy 03/09/22 Ellen Gomez NP [address] [place] [address] [address] [address] Obstetrics and Gynecology 04/10/22 documented as of this encounter
--- OUTSIDE RECORDS SUMMARY | 2025-01-05 01:37 | XMS_ITS | Referral Summary ---
Author Organization [facility] Address [address] [place] [address] Care Team Providers Care Water Rights Specialist Name Role Phone Caty Tristan PT Unavailable Ellen Redmond CONCRETE FLOAT MAKER Unavailable Shashi Patel MD Primary Care Provider Encounters Date Type Department Care Team Description 01/04/2025 Nurse Triage [facility] Primary Care at [address] [phone] Shashi Patel MD 12/18/2024 10:15 AM TAKE OUT WAITRESS Ancillary Procedure [place] [employer] [address] [place] [phone] Cardiac arrhythmia, unspecified cardiac arrhythmia type; PSVT (paroxysmal supraventricular tachycardia); Implantable loop recorder present 11/14/2024 9:32 AM TAKE OUT WAITRESS - 11/14/2024 1:59 PM TAKE OUT WAITRESS Emergency [facility] Emergency Department [address] [place] [address] Lucia Vazquez MD Chest pain, unspecified type (Primary Dx); Palpitations Discharge Disposition: Discharge to home or self care 11/13/2024 7:45 AM TAKE OUT WAITRESS Ancillary Procedure [place] [employer] [address] [place] [phone] PSVT (paroxysmal supraventricular tachycardia); Tachycardia; Implantable loop recorder present 11/12/2024 Orders Only [place] [employer] [address] [place] [phone] Libra Young PSVT (paroxysmal supraventricular tachycardia) (Primary Dx); Cardiac arrhythmia, unspecified cardiac arrhythmia type; Implantable loop recorder present 11/10/2024 2:30 PM TAKE OUT WAITRESS [facility] [address] [place] [phone] Santos Beckham MD Cardiac arrhythmia, unspecified cardiac arrhythmia type (Primary Dx); PSVT (paroxysmal supraventricular tachycardia) 11/02/2024 Orders Only [facility] [address] [place] [phone] Santos Beckham MD PSVT (paroxysmal supraventricular tachycardia) (Primary Dx) 11/02/2024 12:00 PM TAKE OUT WAITRESS Office Visit [facility] Cardiology at [address] [phone] Rm Olguin MD PSVT (paroxysmal supraventricular tachycardia) (Primary Dx); Hypertriglyceridemia; Class 3 severe obesity due to excess calories without serious comorbidity with body mass index (BMI) of 40.0 to 44.9 in adult (HCC); Obstructive sleep apnea 10/29/2024 4:15 PM TAKE OUT WAITRESS Office Visit [facility] Primary Care at [address] [phone] Shashi Patel MD Seasonal affective disorder (Primary Dx) 10/09/2024 11:45 AM TAKE OUT WAITRESS Ancillary Procedure [place] [employer] [address] [place] [phone] PSVT (paroxysmal supraventricular tachycardia); Tachycardia; Implantable loop [...] program We may need to move up transplanter follow up if not improving on the [...] 04/12/2022 Assessment & Plan (11/11/2022 2:04 PM TAKE OUT WAITRESS): Continuing protonix LUQ pain 04/12/2022 Decreased appetite [...] 01/24/2022 Assessment & Plan (11/11/2022 2:04 PM TAKE OUT WAITRESS): Continuing vitamin D supplement Assessment & Plan (01/24/2022 1:26 PM CDT): HPI: Condition is stable A&P: Discussed/ordered labs, encouraged healthy, low carbohydrate lifestyle and at least 150min/week of exercise, continue on vit d3 5000 units daily Obstructive sleep apnea 12/29/2021 Assessment & Plan (01/24/2022 1:20 PM CDT): cpap is on backorder She is going through [facility] sleep center PSVT (paroxysmal supraventricular tachycardia) 0 07/05/2021 Overview (07/05/2021): Added automatically from request for surgery [id number] Assessment & Plan (01/24/2022 1:21 PM CDT): HPI: Condition is stable pt had ablation, she sometimes feels some palpitations. A&P: Discussed/ordered labs, encouraged healthy, low carbohydrate lifestyle and at least 150min/week of exercise, continue seeing Dr. Foote pt no longer on flecainide. But if she starts back with symptoms, she would need to restart it. Assessment & Plan (10/26/2021 8:01 AM TAKE OUT WAITRESS): HPI: Condition is stable Patient had ablation A&P: Discussed/ordered labs, encouraged healthy, low carbohydrate lifestyle and at least 150min/week of exercise, continue Seen Dr. Foote cardiology ? Is patient no longer on flecainide Hypertriglyceridemia 04/11/2021 Assessment & Plan (11/11/2022 2:04 PM TAKE OUT WAITRESS): Wanting to try and resume Vascepa I do note the triglycerides have improved nicely BP is well controlled Continue efforts at intermittent fasting, exercise Assessment & Plan (01/24/2022 1:22 PM CDT): HPI: Condition is stable A&P: Discussed/ordered labs, encouraged healthy, low carbohydrate lifestyle and at least 150min/week of exercise, currently on fish oil Assessment & Plan (10/26/2021 7:58 AM TAKE OUT WAITRESS): HPI: Condition is stable A&P: Discussed/ordered labs, encouraged healthy, low carbohydrate lifestyle and at least 150min/week of exercise, Currently on no medication for this Gastroesophageal reflux dise ase with esophagitis without hemorrhage 12/01/2020 Overview (12/12/2020): Added automatically from request for surgery [id number] Assessment & Plan (04/10/2022 4:05 PM CDT): [...] propped. Assessment & Plan (10/26/2021 7:59 AM TAKE OUT WAITRESS): HPI: Condition is stable no longer taking [...] continue to see Dr. Hina jose at [facility] Assessment & Plan (10/26/2021 7:56 AM TAKE OUT WAITRESS): Patient reiterated no suicidal thoughts at this time; take medication as directed; contact 911 and go to the ER if becomes suicidal; discussed side effects of medication with patient; encouraged healthy diet and exericise; encouraged patient to see a counselor HPI: Condition is stable A&P: Discussed/ordered labs, encouraged healthy, low carbohydrate lifestyle and at least 150min/week of exercise, continue Seeing Dr. Santamaria Psych [facility], Continue on Prozac 20 mg daily [...] exercise, continue seeing Dr. Santamaria (psych at [facility]), Prozac daily-may take 20 mg daily [...] exercise, continue seeing Dr. Santamaria (psych at [facility]),buspirone 10 mg as needed up to [...] stable pt seeing Dr. Santamaria (psych at [facility]) A&P: Discussed/ordered labs, encouraged healthy, low [...] 02/03/2021 Assessment & Plan (11/21/2020 9:23 AM TAKE OUT WAITRESS): Condition is worsening. Will start on daily anxiety medication, Fluoxetine 10mg and Buspar prn until Fluoxetine can take full effect. Patient also encouraged to do counseling. [facility] also [facility] [...] 08/30/2020 Assessment & Plan (09/29/2024 4:04 PM TAKE OUT WAITRESS): BMI Follow-up includes: nutrition counseling, exercise counseling, [...] in your mouth on an kojo like [employer] Lower carb substitutions: [employer] carries a zero [...] in much longer they will become mushy [place] and/or coconut flour instead of regular flour [...] pork rinds For yogurt, try [employer] Good liberian yogurt Use Juli for recipe ideas. Type [...] in your mouth on an kojo like [employer] or [employer] carries a zero net carb bread [...] in much longer they will become mushy [place] and/or coconut flour instead of regular flour [...] pork rinds For yogurt, try [employer] liberian yogurt Use Pinterest for recipe ideas. Type in low carb... Assessment & Plan (10/30/2021 11:40 AM TAKE OUT WAITRESS): HPI: Condition is not at/near goal goal BMI <30 A&P: Healthy, high-protein, lower carbohydrate, lower fat lifestyle and exercise for 150min/week recommended Substitutions: Recommend tracking everything you put in your mouth on an kojo like [employer] or [employer] carries a zero net carb bread [...] in much longer they will become mushy [place] and/or coconut flour instead of regular flour [...] pork rinds For yogurt, try [employer] liberian yogurt Use Pinterest for recipe ideas. Type in low carb... Assessment & Plan (10/26/2021 1:42 PM TAKE OUT WAITRESS): HPI: Condition is improving, but not at goal goal BMI <30 Pt is eating more low carb lifestyle. She has lost 3 pounds since the first of the year. A&P: Healthy, high-protein, lower carbohydrate, lower fat lifestyle and exercise for 150min/week recommended Substitutions: Recommend tracking everything you put in your mouth on an kojo like [employer] or [employer] carries a zero net carb bread [...] in much longer they will become mushy [place] and/or coconut flour instead of regular flour [...] pork rinds For yogurt, try [employer] liberian yogurt Use Pinterest for recipe ideas. Type in low carb... Assessment & Plan (10/24/2021 10:51 AM TAKE OUT WAITRESS): Healthy, low carbohydrate lifestyle and exercise for 150min/week recommended Assessment & Plan (07/26/2021 12:07 PM CDT): HPI: Condition is not at/near goal goal BMI <30 A&P: Healthy, high-protein, lower carbohydrate, lower fat lifestyle and exercise for 150min/week recommended Substitutions: Recommend tracking everything you put in your mouth on an kojo like [employer] or [employer] carries a zero net carb bread If [...] in much longer they will become mushy [place] and/or coconut flour instead of regular flour [...] pork rinds For yogurt, try [employer] liberian yogurt Use Pinterest for recipe ideas. Type in low carb... Assessment & Plan (05/19/2021 7:19 AM CDT): HPI: Condition is not at/near goal goal BMI <30 A&P: Healthy, high-protein, lower carbohydrate, lower fat lifestyle and exercise for 150min/week recommended Substitutions: Recommend tracking everything you put in your mouth on an kojo like [employer] or [employer] carries a zero net carb bread If [...] in much longer they will become mushy [place] and/or coconut flour instead of regular flour [...] pork rinds For yogurt, try [employer] liberian yogurt Use Pinterest for recipe ideas. Type in low carb... Assessment & Plan (04/07/2021 7:24 AM CDT): HPI: Condition is not at/near goal goal BMI <30 A&P: Healthy, high-protein, lower carbohydrate, lower fat lifestyle and exercise for 150min/week recommended Substitutions: Recommend tracking everything you put in your mouth on an kojo like [employer] or [employer] carries a zero net carb bread [...] in much longer they will become mushy [place] and/or coconut flour instead of regular flour [...] pork rinds For yogurt, try [employer] liberian yogurt Use Pinterest for recipe ideas. Type in low carb... Assessment & Plan (01/04/2021 6:48 AM CDT): HPI: Condition is stable A&P: Healthy, low carbohydrate lifestyle and exercise for 150min/week recommended Substitutions: Recommend tracking everything you put in your mouth on an kojo like [employer] carries a zero net carb bread [...] in much longer they will become mushy [place] and/or coconut flour instead of regular flour [...] pork rinds For yogurt, try [employer] liberian yogurt Use Pinterest for recipe ideas. Type in low carb... Assessment & Plan (11/21/2020 9:21 AM TAKE OUT WAITRESS): Healthy, low carbohydrate lifestyle and exercise for 150min/week recommended Assessment & Plan (10/28/2020 3:25 PM TAKE OUT WAITRESS): HPI: Condition is worsening A&P: Healthy, low [...] in much longer they will become mushy [place] and/or coconut flour instead of regular flour [...] carb... Assessment & Plan (08/30/2020 11:51 AM TAKE OUT WAITRESS): HPI: Condition is fluctuating 5-10 pounds A&P: [...] in much longer they will become mushy [place] and/or coconut flour instead of regular flour [...] (01/28/2021): Added automatically from request for surgery [id number] Assessment & Plan (02/23/2021 1:08 PM CDT): [...] needed Assessment & Plan (10/26/2021 7:59 AM TAKE OUT WAITRESS): HPI: Condition is stable A&P: Discussed/ordered labs, [...] EGD Assessment & Plan (12/11/2020 9:56 AM TAKE OUT WAITRESS): This condition will require cholecystectomy, so will refer to surgery after the EGD. Chest pain 12/01/2020 01/24/2022 Overview (12/01/2020): Added automatically from request for surgery [id number] Assessment & Plan (01/24/2022 12:05 PM CDT): Assessment & Plan (01/04/2021 8:25 AM CDT): HPI: Condition is stable A&P: Discussed/ordered labs, encouraged healthy, low carbohydrate lifestyle and at least 150min/week of exercise, reviewed Holter monitor and echocardiogram-both unremarkable Take bp cuff into office when you see cardiology later this week. GERD (gastroesophageal reflux disease) 10/28/2020 07/14/2021 Assessment & Plan (12/11/2020 9:50 AM TAKE OUT WAITRESS): Patient atypical symptoms of chest pain. Discussed [...] Comments Blood Pressure 102/74 11/14/2024 1:30 PM TAKE OUT WAITRESS Pulse 96 11/14/2024 1:30 PM TAKE OUT WAITRESS Temperature 36.1 C (97 F) 11/14/2024 9:26 AM TAKE OUT WAITRESS Respiratory Rate 25 11/14/2024 1:30 PM TAKE OUT WAITRESS Oxygen Saturation 92% 11/14/2024 1:30 PM TAKE OUT WAITRESS Inhaled Oxygen Concentration - - Weight 115.7 kg (255 lb) 11/14/2024 9:28 AM TAKE OUT WAITRESS Height 160 cm (5' 3 ) 11/02/2024 11:35 AM TAKE OUT WAITRESS Body Mass Index 45.17 11/02/2024 11:35 AM TAKE OUT WAITRESS Plan of Treatment Not on file Medical Devices Implanted Type Area Engagement Quality Consultant Device Identifier Shelf Expiration Date Model / Serial / Lot [employer] [id number] Device Closure Vascade Od5 Fr Femoral Artery - [id number] - [id number] Implanted:Qty: 1 on 08/01/2021 by Chava Etienne MD at [facility] [employer] 03/13/2023 [id number] -[id number] / [id number] / [id number] [employer] [id number] System 6-12fr Mvp Venous Closure Vascade - [id number] - [id number] Implanted:Qty: 1 on 08/01/2021 by Chava Etienne MD at [facility] [employer] 05/22/2023 [id number] [id number] / [id number] 09A / [id number] [employer] [id number] Device Closure Vascade Od5 Fr Femoral Artery - [id number] - [id number] Implanted:Qty: 1 on 08/01/2021 by Chava Etienne MD at [facility] [employer] 03/13/2023 [id number] -[id number] / [id number] / [id number] 601A [employer] Biomonitor Iii Monitor Cardiac Sterile Disposable Latex Free [id number] - [id number] - [id number] Implanted:Qty: 1 on 03/13/2023 by Bandar Leija MD at [facility] Implantable Loop Recorder [employer] 07/20/2024 [id number] / [id number] / Procedures Procedure Name Priority Date/Time Associated Diagnosis Comments DEVICE CHECK - REMOTE Routine 12/17/2024 1:15 PM TAKE OUT WAITRESS Cardiac arrhythmia, unspecified cardiac arrhythmia type PSVT (paroxysmal supraventricular tachycardia) Implantable loop recorder present TROPONIN T HIGH-SENSITIVITY 2-HOUR Timed 11/14/2024 12:31 PM TAKE OUT WAITRESS EGFR STAT 11/14/2024 10:12 AM TAKE OUT WAITRESS DIFFERENTIAL AUTO STAT 11/14/2024 10:12 AM TAKE OUT WAITRESS TROPONIN T HIGH-SENSITIVITY SERIES (BASELINE, 2HR, 4HR, 6HR) STAT 11/14/2024 10:12 AM TAKE OUT WAITRESS COMPREHENSIVE METABOLIC PANEL STAT 11/14/2024 10:12 AM TAKE OUT WAITRESS CBC WITH AUTO DIFFERENTIAL STAT 11/14/2024 10:12 AM TAKE OUT WAITRESS XR CHEST 1 VIEW ED 11/14/2024 9:59 AM TAKE OUT WAITRESS ECG 12-LEAD STAT 11/14/2024 9:32 AM TAKE OUT WAITRESS DEVICE CHECK - REMOTE Routine 11/12/2024 8:48 AM TAKE OUT WAITRESS PSVT (paroxysmal supraventricular tachycardia) Tachycardia Implantable loop recorder present ECG 12-LEAD Routine 11/10/2024 2:30 PM TAKE OUT WAITRESS Cardiac arrhythmia, unspecified cardiac arrhythmia type ELECTROCARDIOGRAM REPORT Routine 11/02/2024 1:25 PM TAKE OUT WAITRESS PSVT (paroxysmal supraventricular tachycardia) DEVICE CHECK - REMOTE Routine 10/08/2024 2:21 PM TAKE OUT WAITRESS PSVT (paroxysmal supraventricular tachycardia) Tachycardia Implantable loop recorder present PAP AND HPV, REFLEX TO HPV GENOTYPES Routine 01/03/2024 10:43 AM CDT Well woman exam from Last 3 Months or Most Recently Relevant to Health Maintenance Results * DEVICE CHECK - REMOTE (12/17/2024 1:15 PM TAKE OUT WAITRESS) Anatomical Region Laterality Modality Other Narrative 12/21/2024 3:37 PM TAKE OUT WAITRESS Images from the original result were not included. 12/18/2024 [employer] monthly remote check The complete report is attached and is also available in Visit Navigator under Car Driver Three HVR episodes 4 min16 sec longest AT/AF [place]: 0.0% of Day Next Appointment: 2025 with [...] Troponin T high-sensitivity 2-hour (11/14/2024 12:31 PM TAKE OUT WAITRESS) Trop T hs <6 <=14 ng/L Comment: Interpretive Data For further hscTnT resources including the diagnostic algorithm and an aid in interpretation, copy and paste this link: https://nrl.testcatalog.org/show/hsTrop Current Interpretive Data last revised 2020. Trop T hs delta 0 ng/L [facility] ([place]) Trop T hs interp Insignificant [facility] ([place]) Blood 11/14/2024 12:3 1 PM TAKE OUT WAITRESS 11/14/2024 12:34 PM TAKE OUT WAITRESS us Shirley Ellis MD LAB BLOOD ORDERABLE S Final Result [facility] ([place]) [address] [place] [address] [place] [address] * Troponin T high-sensitivity series (baseline, 2hr, 4hr, 6hr) (11/14/2024 10:12 AM TAKE OUT WAITRESS) [facility] Trop T hs <6 <=14 ng/L Comment: Interpretive Data For further hscTnT resources including the diagnostic algorithm and an aid in interpretation, copy and paste this link: https://nrl.testcatalog.org/show/hsTrop Current Interpretive Data last revised 2020. Blood 11/14/2024 10:1 2 AM TAKE OUT WAITRESS 11/14/2024 10:16 AM TAKE OUT WAITRESS us Lucia Vazquez MD LAB BLOOD ORDERABLES Teena l Result [facility] ([place]) [address] [place] [address] [place] [address] * eGFR (11/14/2024 10:12 AM TAKE OUT WAITRESS) [facility] eGFR >90 >=60 mL/min/1. 73 m2 [...] reviewed 2021. Blood 11/14/2024 10:1 2 AM TAKE OUT WAITRESS 11/14/2024 10:16 AM TAKE OUT WAITRESS us Shirley Ellis MD LAB BLOOD ORDERABLE S Final Result [facility] 1 [facility] Department [place] [address] * Differential, auto (11/14/2024 10:12 AM TAKE OUT WAITRESS) Neutrophil abs 3.6 1.5 - 6.5 K/cumm [...] on 2018. Blood 11/14/2024 10:1 2 AM TAKE OUT WAITRESS 11/14/2024 10:16 AM TAKE OUT WAITRESS us Shirley Ellis MD LAB BLOOD ORDERABLE S Final Result [facility] ([place]) 1 [facility] Department of Laboratories [place], [place] [id number] * (ABNORMAL) CBC with auto differential (11/14/2024 10:12 AM TAKE OUT WAITRESS) WBC 6.8 3.8 - 9.9 K/cumm Hgb [...] blood specimen / Unknown 11/14/2024 10:12 AM TAKE OUT WAITRESS 11/14/2024 10:16 AM TAKE OUT WAITRESS us Lucia Vazquez MD LAB BLOOD ORDERABLES Teena mike Result [facility] ([place]) 1 [facility] Department [place] [address] * (ABNORMAL) Comprehensive metabolic panel (11/14/2024 10:12 AM TAKE OUT WAITRESS) Sodium 134(L) 135 - 145 mmol/L Potassium, [...] ([place]) Glucose 87 70 - 199 mg/dL [facility] ([place] Comment: Interpretive Data Fasting glucose [...] [facility] ([place]) Blood 11/14/2024 10:1 2 AM TAKE OUT WAITRESS 11/14/2024 10:16 AM TAKE OUT WAITRESS us Lucia Vazquez MD LAB BLOOD ORDERABLES Teena mike Result [facility] ([place]) 1 [facility] Department [place] [address] * XR Chest 1 Vw Portable (if patient condition/safety warrant portable) (11/14/2024 9:59 AM TAKE OUT WAITRESS) Anatomical Region Laterality Modality Body, Chest N/A Computed Radiogr aphy 11/14/2024 10:2 7 AM TAKE OUT WAITRESS Narrative 11/14/2024 10:29 AM TAKE OUT WAITRESS EXAM DESCRIPTION: XR CHEST 1 VIEW REASON [...] 10:29 AM - Electronically signed by Evaristo Krisnhan M.D. MM: MM Report ID: [id number] Reading Location: [id number] Procedure Note Evaristo Krishnan MD - 11/14/2024 [...] Evaristo Krishnan M.D. MM: MM Report ID: [id number] Reading Location: [id number] Lucia Vazquez MD IMG XR PROCEDURES Final R esult * ECG 12 lead (11/14/2024 9:32 AM TAKE OUT WAITRESS) 11/14/2024 9:32 AM TAKE OUT WAITRESS Narrative [facility] - 11/14/2024 10:10 AM TAKE OUT WAITRESS Vent Rate: 79 bpm RR Interval: [address] Interval: 154 msec QRS Duration: 84 msec QT Interval: 369 msec QTC Interval: 403 msec P-R-T [place]: 19 - 7 - 30 degrees IMPRESSION: SINUS RHYTHM NORMAL ECG Electronically Signed By: Steven Jones MD, LOCATED [facility]IN [facility] Lucia Vazquez MD ECG ORDERABLES Final Res ult [facility] * DEVICE CHECK - REMOTE (11/12/2024 8:48 AM TAKE OUT WAITRESS) Anatomical Region Laterality Modality Other Narrative 11/13/2024 3:56 PM TAKE OUT WAITRESS Images from the original result were not included. 11/13/2024 [employer] monthly remote check The complete report is attached and is also available in Visit Navigator under Car Driver Last periodic IEGM: HVR episode from 10/16/2024 [...] * ECG 12 lead (11/10/2024 2:30 PM TAKE OUT WAITRESS) 11/10/2024 2:30 PM TAKE OUT WAITRESS us Santos Beckham MD ECG ORDERABLES Final Re sult * Electrocardiogram Report (11/02/2024 1:25 PM TAKE OUT WAITRESS) Rm Olguin MD ECG ORDERABLES Final Res ult * DEVICE CHECK - REMOTE (10/08/2024 2:21 PM TAKE OUT WAITRESS) Anatomical Region Laterality Modality Other Narrative 10/09/2024 10:22 PM TAKE OUT WAITRESS Images from the original result were not included. 10/09/2024 [employer] monthly remote check The complete report is attached and is also available in Visit Navigator under Car Driver Last periodic IEGM 10/09/2025: HVR episode on [...] Genotypes (01/03/2024 10:43 AM CDT) CLINICAL INFORMATION: [facility] Comment:SCREENING LMP [facility] Comment:12/12/23 Previous Pap [facility] Comment:NONE GIVEN Prev. Bx [facility] Comment:NONE GIVEN SOURCE: [facility] Comment:Cervix, Endocervix Pap, specimen adequacy [facility] Comment: Satisfactory for evaluation. Endocervical/transformation zone component present. HPV interp [facility] Comment: Cytology Results: Negative for intraepithelial lesion or malignancy. COMMENTS [facility] Comment: This Pap test has been evaluated with computer assisted technology. Counter Stitcher Ben [facility] Comment: YQ, CT(ASCP) CT screening location: [place] [address] [place] [address] Comment [facility] Comment: EXPLANATORY NOTE: The Pap is [...] High Risk E6/E7 Not Detected NOT DETECTED [facility] Comment: Not Detected High Risk HPV types (16,18,31,33,35,39,45,51,52, 56,58,59,66,68) were not detected. Other HPV types which cause anogenital lesions may be present. The significance of the other types of HPV in malignant processes has not been established. Methodology: Real Time PCR Thin prep 01/03/2024 10:4 3 AM CDT 01/06/2024 9:13 AM CDT us Ellen Goemz CONCRETE FLOAT MAKER LAB CYTOLOGY ORDERABLES Final Re sult [place] [address] [place] [phone] [facility] [address] [address] [place] [phone] from Last 3 Months or Most Recently Relevant to Health Maintenance Insurance [facility] [place] [id number] [facility] Advance Directives For more information, please contact: [phone] * Full Code (Latest Code Status on [...] 5:32 PM 12/01/2018 6:54 PM Care Teams Water Rights Specialist Relationship Specialty Start Date End Date Shashi Patel MD [address] [address] PCP - General Family Medicine 08/06/22 Caty Tristan, PT Physical Therapist Physical Therapy 03/09/22 Ellen Gomez, CONCRETE FLOAT MAKER [address] [place] [address] [address] [address] Obstetrics and Gynecology 04/10/22
--- OUTSIDE RECORDS SUMMARY | 2025-01-05 01:37 | XMS_ITS | Clinical Summary ---
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 if not improving on the [...] 04/12/2022 Assessment & Plan (11/11/2022 2:04 PM MEDICAL ACCOUNTING CLERK): Continuing protonix LUQ pain 04/12/2022 Decreased appetite [...] 01/24/2022 Assessment & Plan (11/11/2022 2:04 PM MEDICAL ACCOUNTING CLERK): Continuing vitamin D supplement Assessment & Plan (01/24/2022 1:26 PM CDT): HPI: Condition is stable A&P: Discussed/ordered labs, encouraged healthy, low carbohydrate lifestyle and at least 150min/week of exercise, continue on vit d3 5000 units daily Obstructive sleep apnea 12/29/2021 Assessment & Plan (01/24/2022 1:20 PM CDT): cpap is on backorder She is going through [facility] sleep center PSVT (paroxysmal supraventricular tachycardia) 0 07/05/2021 Overview (07/05/2021): Added automatically from request for surgery [id number] Assessment & Plan (01/24/2022 1:21 PM CDT): HPI: Condition is stable pt had ablation, she sometimes feels some palpitations. A&P: Discussed/ordered labs, encouraged healthy, low carbohydrate lifestyle and at least 150min/week of exercise, continue seeing Dr. Foote pt no longer on flecainide. But if she starts back with symptoms, she would need to restart it. Assessment & Plan (10/26/2021 8:01 AM MEDICAL ACCOUNTING CLERK): HPI: Condition is stable Patient had ablation A&P: Discussed/ordered labs, encouraged healthy, low carbohydrate lifestyle and at least 150min/week of exercise, continue Seen Dr. Foote cardiology ? Is patient no longer on flecainide Hypertriglyceridemia 04/11/2021 Assessment & Plan (11/11/2022 2:04 PM MEDICAL ACCOUNTING CLERK): Wanting to try and resume Vascepa I do note the triglycerides have improved nicely BP is well controlled Continue efforts at intermittent fasting, exercise Assessment & Plan (01/24/2022 1:22 PM CDT): HPI: Condition is stable A&P: Discussed/ordered labs, encouraged healthy, low carbohydrate lifestyle and at least 150min/week of exercise, currently on fish oil Assessment & Plan (10/26/2021 7:58 AM MEDICAL ACCOUNTING CLERK): HPI: Condition is stable A&P: Discussed/ordered labs, encouraged healthy, low carbohydrate lifestyle and at least 150min/week of exercise, Currently on no medication for this Gastroesophageal reflux dise ase with esophagitis without hemorrhage 12/01/2020 Overview (12/12/2020): Added automatically from request for surgery [id number] Assessment & Plan (04/10/2022 4:05 PM CDT): [...] propped. Assessment & Plan (10/26/2021 7:59 AM MEDICAL ACCOUNTING CLERK): HPI: Condition is stable no longer taking [...] continue to see Dr. Santamaria psych at [facility] Assessment & Plan (10/26/2021 7:56 AM MEDICAL ACCOUNTING CLERK): Patient reiterated no suicidal thoughts at this time; take medication as directed; contact 911 and go to the ER if becomes suicidal; discussed side effects of medication with patient; encouraged healthy diet and exericise; encouraged patient to see a counselor HPI: Condition is stable A&P: Discussed/ordered labs, encouraged healthy, low carbohydrate lifestyle and at least 150min/week of exercise, continue Seeing Dr. Santamaria Psych [facility], Continue on Prozac 20 mg [...] exercise, continue seeing Dr. Santamaria (psych at [facility]), Prozac daily-may take 20 mg [...] exercise, continue seeing Dr. Santamaria (psych at [facility]),buspirone 10 mg as needed up [...] stable pt seeing Dr. Santamaria (psych at [facility]) A&P: Discussed/ordered labs, encouraged healthy, [...] 02/03/2021 Assessment & Plan (11/21/2020 9:23 AM MEDICAL ACCOUNTING CLERK): Condition is worsening. Will start on daily [...] 08/30/2020 Assessment & Plan (09/29/2024 4:04 PM MEDICAL ACCOUNTING CLERK): BMI Follow-up includes: nutrition counseling, exercise counseling, [...] in your mouth on an kojo like Dry Lube Lower carb substitutions: Aldi carries a zero [...] in much longer they will become mushy [place] and/or coconut flour instead of regular flour [...] pork rinds For yogurt, try Two Good nauruan yogurt Use Juli for recipe ideas. Type [...] in your mouth on an kojo like Dry Lube or Mixpo Aldi carries a zero net carb bread [...] in much longer they will become mushy [place] and/or coconut flour instead of regular flour [...] pork rinds For yogurt, try Two Good nauruan yogurt Use Pinterest for recipe ideas. Type in low carb... Assessment & Plan (10/30/2021 11:40 AM MEDICAL ACCOUNTING CLERK): HPI: Condition is not at/near goal goal BMI <30 A&P: Healthy, high-protein, lower carbohydrate, lower fat lifestyle and exercise for 150min/week recommended Substitutions: Recommend tracking everything you put in your mouth on an kojo like Dry Lube or Mixpo Aldi carries a zero net carb bread [...] in much longer they will become mushy [place] and/or coconut flour instead of regular flour [...] pork rinds For yogurt, try Two Good nauruan yogurt Use Pinterest for recipe ideas. Type in low carb... Assessment & Plan (10/26/2021 1:42 PM MEDICAL ACCOUNTING CLERK): HPI: Condition is improving, but not at goal goal BMI <30 Pt is eating more low carb lifestyle. She has lost 3 pounds since the first of the year. A&P: Healthy, high-protein, lower carbohydrate, lower fat lifestyle and exercise for 150min/week recommended Substitutions: Recommend tracking everything you put in your mouth on an kojo like Dry Lube or [employer] carries a zero net carb bread If [...] in much longer they will become mushy [place] and/or coconut flour instead of regular flour [...] pork rinds For yogurt, try Two Good nauruan yogurt Use Pinterest for recipe ideas. Type in low carb... Assessment & Plan (10/24/2021 10:51 AM MEDICAL ACCOUNTING CLERK): Healthy, low carbohydrate lifestyle and exercise for 150min/week recommended Assessment & Plan (07/26/2021 12:07 PM CDT): HPI: Condition is not at/near goal goal BMI <30 A&P: Healthy, high-protein, lower carbohydrate, lower fat lifestyle and exercise for 150min/week recommended Substitutions: Recommend tracking everything you put in your mouth on an kojo like Dry Lube or Mixpo Aldi carries a zero net carb bread [...] in much longer they will become mushy [place] and/or coconut flour instead of regular flour [...] pork rinds For yogurt, try Two Good nauruan yogurt Use Pinterest for recipe ideas. Type in low carb... Assessment & Plan (05/19/2021 7:19 AM CDT): HPI: Condition is not at/near goal goal BMI <30 A&P: Healthy, high-protein, lower carbohydrate, lower fat lifestyle and exercise for 150min/week recommended Substitutions: Recommend tracking everything you put in your mouth on an kojo like Dry Lube or Mixpo [employer]i carries a zero net carb bread [...] in much longer they will become mushy [place] and/or coconut flour instead of regular flour [...] pork rinds For yogurt, try Two Good nauruan yogurt Use Pinterest for recipe ideas. Type in low carb... Assessment & Plan (04/07/2021 7:24 AM CDT): HPI: Condition is not at/near goal goal BMI <30 A&P: Healthy, high-protein, lower carbohydrate, lower fat lifestyle and exercise for 150min/week recommended Substitutions: Recommend tracking everything you put in your mouth on an kojo like Dry Lube or Mixpo Aldi carries a zero net carb bread [...] in much longer they will become mushy [place] and/or coconut flour instead of regular flour [...] pork rinds For yogurt, try Two Good nauruan yogurt Use Pinterest for recipe ideas. Type in low carb... Assessment & Plan (01/04/2021 6:48 AM CDT): HPI: Condition is stable A&P: Healthy, low carbohydrate lifestyle and exercise for 150min/week recommended Substitutions: Recommend tracking everything you put in your mouth on an kojo like Dry Lube [place] carries a zero net carb bread [...] in much longer they will become mushy [place] and/or coconut flour instead of regular flour [...] pork rinds For yogurt, try Two Good nauruan yogurt Use Pinterest for recipe ideas. Type in low carb... Assessment & Plan (11/21/2020 9:21 AM MEDICAL ACCOUNTING CLERK): Healthy, low carbohydrate lifestyle and exercise for 150min/week recommended Assessment & Plan (10/28/2020 3:25 PM MEDICAL ACCOUNTING CLERK): HPI: Condition is worsening A&P: Healthy, low [...] in much longer they will become mushy [place] and/or coconut flour instead of regular flour [...] ice cream, try the brand Enlightened Use [employer] for recipe ideas. Type in low carb... Assessment & Plan (08/30/2020 11:51 AM MEDICAL ACCOUNTING CLERK): HPI: Condition is fluctuating 5-10 pounds A&P: [...] in much longer they will become mushy [place] and/or coconut flour instead of regular flour [...] (01/28/2021): Added automatically from request for surgery [id number] Assessment & Plan (02/23/2021 1:08 PM CDT): [...] needed Assessment & Plan (10/26/2021 7:59 AM MEDICAL ACCOUNTING CLERK): HPI: Condition is stable A&P: Discussed/ordered labs, [...] EGD Assessment & Plan (12/11/2020 9:56 AM MEDICAL ACCOUNTING CLERK): This condition will require cholecystectomy, so will refer to surgery after the EGD. Chest pain 12/01/2020 01/24/2022 Overview (12/01/2020): Added automatically from request for surgery [id number] Assessment & Plan (01/24/2022 12:05 PM CDT): Assessment & Plan (01/04/2021 8:25 AM CDT): HPI: Condition is stable A&P: Discussed/ordered labs, encouraged healthy, low carbohydrate lifestyle and at least 150min/week of exercise, reviewed Holter monitor and echocardiogram-both unremarkable Take bp cuff into office when you see cardiology later this week. GERD (gastroesophageal reflux disease) 10/28/2020 07/14/2021 Assessment & Plan (12/11/2020 9:50 AM MEDICAL ACCOUNTING CLERK): Patient atypical symptoms of chest pain. Discussed GERD diet. Increase Omeprazole to twice daily. chedule EGD. Follow up after the EGD. RUQ pain 09/28/2020 10/26/2021 Encounters Date Type Department Care Team Description 01/04/2025 Nurse Triage [facility] Primary Care at [address] [phone] Shashi Patel MD 12/18/2024 10:15 AM MEDICAL ACCOUNTING CLERK Ancillary Procedure [facility] [employer] [facility] [address] [place] [phone] Cardiac arrhythmia, unspecified cardiac arrhythmia type; PSVT (paroxysmal supraventricular tachycardia); Implantable loop recorder present 11/14/2024 9:32 AM MEDICAL ACCOUNTING CLERK - 11/14/2024 1:59 PM MEDICAL ACCOUNTING CLERK Emergency [facility] Emergency Department [address] [id number] Lucia Vazquez MD Chest pain, unspecified type (Primary Dx); Palpitations Discharge Disposition: Discharge to home or self care 11/13/2024 7:45 AM MEDICAL ACCOUNTING CLERK Ancillary Procedure [facility] [employer] [address] [place] [phone] PSVT (paroxysmal supraventricular tachycardia); Tachycardia; Implantable loop recorder present 11/12/2024 Orders Only [facility] [employer] [facility] [address] [place] [phone] Maleedmond Libra PSVT (paroxysmal supraventricular tachycardia) (Primary Dx); Cardiac arrhythmia, unspecified cardiac arrhythmia type; Implantable loop recorder present 11/10/2024 2:30 PM MEDICAL ACCOUNTING CLERK [facility] [address] [place] [phone] Santos Beckham MD Cardiac arrhythmia, unspecified cardiac arrhythmia type (Primary Dx); PSVT (paroxysmal supraventricular tachycardia) 11/02/2024 12:00 PM MEDICAL ACCOUNTING CLERK Office Visit [facility] Cardiology at [address] [place] [phone] Rm Olguin MD PSVT (paroxysmal supraventricular tachycardia) (Primary Dx); Hypertriglyceridemia; Class 3 severe obesity due to excess calories without serious comorbidity with body mass index (BMI) of 40.0 to 44.9 in adult (HCC); Obstructive sleep apnea 11/02/2024 Orders Only [facility] [address] [place] [address] [place] [phone] Santos Beckham MD PSVT (paroxysmal supraventricular tachycardia) (Primary Dx) 10/29/2024 4:15 PM MEDICAL ACCOUNTING CLERK Office Visit [facility] Primary Care at [address] [phone] Shashi Patel MD Seasonal affective disorder (Primary Dx) 10/09/2024 11:45 AM MEDICAL ACCOUNTING CLERK Ancillary Procedure [facility] [employer] [address] [place] [phone] PSVT (paroxysmal supraventricular tachycardia); Tachycardia; Implantable [...] obesity with BMI of 4 0.0-44.9, adult ([facility]) 08/30/2020 Obstructive sleep apnea 12/29/2021 [...] Grandmother Sharmin Anemia Mother Katlin Arthritis Mother Kaltin Clotting disorder Mother Katlin Coronary artery disease Mother Katlin Heart disease Mother Katlin Heart failure Mother Katlin Mental illness Mother Katlin Obesity Mother Katlin Pulmonary embolism Mother Katlin Schizophrenia Mother Katlin Obesity Paternal Grandmother Rupinder Relation Name Status Comments Daughter 1 Rilynn Daughter 2 Kamranh Father Leroy Alive Maternal Grandmother Sharmin Mother Katlin Other Alive Paternal Grandmother Rupinder Social History Tobacco Use Types Packs/Day Years [...] to Progress in Second Stage Delivery Location:This [facility] PROCEDURE) Last Filed Vital Signs Vital Sign Reading Time Taken Comments Blood Pressure 102/74 11/14/2024 1:30 PM MEDICAL ACCOUNTING CLERK Pulse 96 11/14/2024 1:30 PM MEDICAL ACCOUNTING CLERK Temperature 36.1 C (97 F) 11/14/2024 9:26 AM MEDICAL ACCOUNTING CLERK Respiratory Rate 25 11/14/2024 1:30 PM MEDICAL ACCOUNTING CLERK Oxygen Saturation 92% 11/14/2024 1:30 PM MEDICAL ACCOUNTING CLERK Inhaled Oxygen Concentration - - Weight 115.7 kg (255 lb) 11/14/2024 9:28 AM MEDICAL ACCOUNTING CLERK Height 160 cm (5' 3 ) 11/02/2024 11:35 AM MEDICAL ACCOUNTING CLERK Body Mass Index 45.17 11/02/2024 11:35 AM MEDICAL ACCOUNTING CLERK Plan of Treatment Health Maintenance Due Date [...] this topic Medical Devices Implanted Type Area Compliance And Control Analyst Device Identifier Shelf Expiration Date Model / Serial / Lot [employer] [id number] Device Closure Vascade Od5 Fr Femoral Artery - [id number] - [id number] Implanted:Qty: 1 on 08/01/2021 by Chava Etienne MD at [facility] Collagen [employer] 03/13/2023 [id number] -[id number] / [id number] 601A / [id number] [employer] [id number] System 6-12fr Mvp Venous Closure Vascade - [id number] - [id number] Implanted:Qty: 1 on 08/01/2021 by Chava Etienne MD at [facility] Collagen [employer] 05/22/2023 [id number] [id number] / [id number] 09A / [id number] [employer] [id number] Device Closure Vascade Od5 Fr Femoral Artery - [id number] - [id number] Implanted:Qty: 1 on 08/01/2021 by Chava Etienne MD at [facility] Collagen [employer] 03/13/2023 [id number] -[id number] / [id number] 601A / [id number] [employer] Biomonitor Iii Monitor Cardiac Sterile Disposable Latex Free [id number] - [id number] - [id number] Implanted:Qty: 1 on 03/13/2023 by Bandar Leija MD at [facility] Implantable Loop Recorder [employer] 07/20/2024 [id number] / [id number] / Procedures Procedure Name Priority Date/Time Associated Diagnosis Comments DEVICE CHECK - REMOTE Routine 12/17/2024 1:15 PM MEDICAL ACCOUNTING CLERK Cardiac arrhythmia, unspecified cardiac arrhythmia type PSVT (paroxysmal supraventricular tachycardia) Implantable loop recorder present TROPONIN T HIGH-SENSITIVITY 2-HOUR Timed 11/14/2024 12:31 PM MEDICAL ACCOUNTING CLERK EGFR STAT 11/14/2024 10:12 AM MEDICAL ACCOUNTING CLERK DIFFERENTIAL AUTO STAT 11/14/2024 10:12 AM MEDICAL ACCOUNTING CLERK TROPONIN T HIGH-SENSITIVITY SERIES (BASELINE, 2HR, 4HR, 6HR) STAT 11/14/2024 10:12 AM MEDICAL ACCOUNTING CLERK COMPREHENSIVE METABOLIC PANEL STAT 11/14/2024 10:12 AM MEDICAL ACCOUNTING CLERK CBC WITH AUTO DIFFERENTIAL STAT 11/14/2024 10:12 AM MEDICAL ACCOUNTING CLERK XR CHEST 1 VIEW ED 11/14/2024 9:59 AM MEDICAL ACCOUNTING CLERK ECG 12-LEAD STAT 11/14/2024 9:32 AM MEDICAL ACCOUNTING CLERK DEVICE CHECK - REMOTE Routine 11/12/2024 8:48 AM MEDICAL ACCOUNTING CLERK PSVT (paroxysmal supraventricular tachycardia) Tachycardia Implantable loop recorder present ECG 12-LEAD Routine 11/10/2024 2:30 PM MEDICAL ACCOUNTING CLERK Cardiac arrhythmia, unspecified cardiac arrhythmia type ELECTROCARDIOGRAM REPORT Routine 11/02/2024 1:25 PM MEDICAL ACCOUNTING CLERK PSVT (paroxysmal supraventricular tachycardia) DEVICE CHECK - REMOTE Routine 10/08/2024 2:21 PM MEDICAL ACCOUNTING CLERK PSVT (paroxysmal supraventricular tachycardia) Tachycardia Implantable loop recorder present PAP AND HPV, REFLEX TO HPV GENOTYPES Routine 01/03/2024 10:43 AM CDT Well woman exam from Last 3 Months or Most Recently Relevant to Health Maintenance Results * DEVICE CHECK - REMOTE (12/17/2024 1:15 PM MEDICAL ACCOUNTING CLERK) Anatomical Region Laterality Modality Other Narrative 12/21/2024 3:37 PM MEDICAL ACCOUNTING CLERK Images from the original result were not included. 12/18/2024 [employer] monthly remote check The complete report is attached and is also available in Visit Navigator under Sustainability Executive Director Three HVR episodes 4 min16 sec longest AT/AF [place]: 0.0% of Day Next Appointment: 2025 with [...] Troponin T high-sensitivity 2-hour (11/14/2024 12:31 PM MEDICAL ACCOUNTING CLERK) Trop T hs <6 <=14 ng/L Comment: Interpretive Data For further hscTnT resources including the diagnostic algorithm and an aid in interpretation, copy and paste this link: https://nrl.[facility].org/show/hsTrop Current Interpretive Data last revised 2020. Trop T hs delta 0 ng/L [facility] ([facility]) Trop T hs interp Insignificant [facility] ([place]) Blood 11/14/2024 12:3 1 PM MEDICAL ACCOUNTING CLERK 11/14/2024 12:34 PM MEDICAL ACCOUNTING CLERK us Shirley Ellis MD LAB BLOOD ORDERABLE S Final Result [facility] ([place]) 1 [facility] Department [place] [address] * Troponin T high-sensitivity series (baseline, 2hr, 4hr, 6hr) (11/14/2024 10:12 AM MEDICAL ACCOUNTING CLERK) Trop T hs <6 <=14 ng/L Comment: Interpretive Data For further hscTnT resources including the diagnostic algorithm and an aid in interpretation, copy and paste this link: https://nrl.[facility].org/show/hsTrop Current Interpretive Data last revised 2020. Blood 11/14/2024 10:1 2 AM MEDICAL ACCOUNTING CLERK 11/14/2024 10:16 AM MEDICAL ACCOUNTING CLERK us Lucia Vazquez MD LAB BLOOD ORDERABLES Teena l Result [facility] ([place]) 1 [facility] [place] [address] * eGFR (11/14/2024 10:12 AM MEDICAL ACCOUNTING CLERK) eGFR >90 >=60 mL/min/1. 73 m2 Comment: [...] reviewed 2021. Blood 11/14/2024 10:1 2 AM MEDICAL ACCOUNTING CLERK 11/14/2024 10:16 AM MEDICAL ACCOUNTING CLERK us Shirley Ellis MD LAB BLOOD ORDERABLE S Final Result [facility] ([place]) 1 [facility] [place] [address] * Differential, auto (11/14/2024 10:12 AM MEDICAL ACCOUNTING CLERK) Neutrophil abs 3.6 1.5 - 6.5 K/cumm [...] on 2018. Blood 11/14/2024 10:1 2 AM MEDICAL ACCOUNTING CLERK 11/14/2024 10:16 AM MEDICAL ACCOUNTING CLERK us Shirley Ellis MD LAB BLOOD ORDERABLE S Final Result [facility] ([place] 1 [facility] Department [place] [address] * (ABNORMAL) CBC with auto differential (11/14/2024 10:12 AM MEDICAL ACCOUNTING CLERK) WBC 6.8 3.8 - 9.9 K/cumm Hgb [...] blood specimen / Unknown 11/14/2024 10:12 AM MEDICAL ACCOUNTING CLERK 11/14/2024 10:16 AM MEDICAL ACCOUNTING CLERK us Lucia Vazquez MD LAB BLOOD ORDERABLES Teena l Result [facility] ([place]) 1 [facility] [place] [address] * (ABNORMAL) Comprehensive metabolic panel (11/14/2024 10:12 AM MEDICAL ACCOUNTING CLERK) Pathologist [facility] Sodium 134(L) 135 - 145 mmol/L Potassium, [...] [facility] ([place]) Blood 11/14/2024 10:1 2 AM MEDICAL ACCOUNTING CLERK 11/14/2024 10:16 AM MEDICAL ACCOUNTING CLERK us Lucia Vazquez MD LAB BLOOD ORDERABLES Teena mike Result [facility] ([place]) 1 [facility] Department [place] [address] * XR Chest 1 Vw Portable (if patient condition/safety warrant portable) (11/14/2024 9:59 AM MEDICAL ACCOUNTING CLERK) Anatomical Region Laterality Modality Body, Chest N/A Computed Radiogr aphy 11/14/2024 10:2 7 AM MEDICAL ACCOUNTING CLERK Narrative 11/14/2024 10:29 AM MEDICAL ACCOUNTING CLERK EXAM DESCRIPTION: XR CHEST 1 VIEW REASON [...] Evaristo Krishnan M.D. MM: MM Report ID: [id number] Reading Location: [id number] Procedure Note Evaristo Krishnan MD - 11/14/2024 [...] Evaristo Krishnan M.D. MM: MM Report ID: [id number] Reading Location: [id number] Lucia Vazquez MD IMG XR PROCEDURES Final R esult * ECG 12 lead (11/14/2024 9:32 AM MEDICAL ACCOUNTING CLERK) 11/14/2024 9:32 AM MEDICAL ACCOUNTING CLERK Narrative [facility] - 11/14/2024 10:10 AM MEDICAL ACCOUNTING CLERK Vent Rate: 79 bpm RR Interval: 757 msec OR Interval: 154 msec QRS Duration: 84 msec QT Interval: 369 msec QTC Interval: 403 msec P-R-T [place]: 19 - 7 - 30 degrees IMPRESSION: SINUS RHYTHM NORMAL ECG Electronically Signed By: Steven Jones MD, [facility] Lucia Vazquez MD ECG ORDERABLES Final Res ult [facility] * DEVICE CHECK - REMOTE (11/12/2024 8:48 AM MEDICAL ACCOUNTING CLERK) Anatomical Region Laterality Modality Other Narrative 11/13/2024 3:56 PM MEDICAL ACCOUNTING CLERK Images from the original result were not included. 11/13/2024 [employer] monthly remote check The complete report is attached and is also available in Visit Navigator under Sustainability Executive Director Last periodic IEGM: HVR episode from 10/16/2024 @8:05am 12 sec duration Next Appointment: 2025 with Hayde Reviewed By Linh Garcia LITIGATION ASSISTANT ATTESTATION I have reviewed the device interrogation report associated with this encounter in detail. I agree with the documentation recorded/scanned into the electronic medical record. Recommendations: Continue current device follow-up. Samir Forrester MD Samir Forrester MD [facility] CARDI[facility] SERVICES PROCEDURES Final Result * ECG 12 lead (11/10/2024 2:30 PM MEDICAL ACCOUNTING CLERK) 11/10/2024 2:30 PM MEDICAL ACCOUNTING CLERK us Santos Beckham MD ECG ORDERABLES Final Re sult * Electrocardiogram Report (11/02/2024 1:25 PM MEDICAL ACCOUNTING CLERK) us Rm Olguin MD ECG ORDERABLES Final Res ult * DEVICE CHECK - REMOTE (10/08/2024 2:21 PM MEDICAL ACCOUNTING CLERK) Anatomical Region Laterality Modality Other Narrative 10/09/2024 10:22 PM MEDICAL ACCOUNTING CLERK Images from the original result were not included. 10/09/2024 [facility] The complete report is attached and is also available in Visit Navigator under Sustainability Executive Director Last periodic IEGM 10/09/2025: HVR episode on [...] Genotypes (01/03/2024 10:43 AM CDT) CLINICAL INFORMATION: [facility] Comment:SCREENING LMP [facility] Comment:12/12/23 Previous Pap [facility] Comment:NONE GIVEN Prev. Bx [facility] Comment:NONE GIVEN SOURCE: [facility] Comment:Cervix, Endocervix Pap, specimen adequacy [facility] Comment: Satisfactory for evaluation. Endocervical/transformation zone component present. HPV interp [facility] Comment: Cytology Results: Negative for intraepithelial lesion or malignancy. COMMENTS [facility] [facility] Comment: This Pap test has been evaluated with computer assisted technology. Life Insurance Actuary [facility] Comment: YQ, CT(ASCP) CT screening location: [place] [address] [place] [address] Comment [facility] Comment: EXPLANATORY NOTE: The Pap is a [...] E6/E7 Not Detected NOT DETECTED [facility] Comment: Not Detected High Risk HPV types [...] CYTOLOGY ORDERABLES Final Re sult [place] [address] [place] [address] Archive/Mukesh [facility] [address] [place] [address] from Last 3 Months or Most Recently Relevant to Health Maintenance Insurance [facility] H[facility]/PPO Address: [address] [address] Advance Directives For more information, please contact: [phone] * Full Code (Latest Code Status on [...] 5:32 PM 12/01/2018 6:54 PM Care Teams Aboriginal Education Worker Coordinator Relationship Specialty Start Date End Date Shashi Patel MD [address] [address] PCP - General Family Medicine 08/06/22 Caty Tristan, PT Physical Therapist Physical Therapy 03/09/22 Ellen Gomez STEAM PRESSER [address] [place] [address] [address] [address] Obstetrics and Gynecology 04/10/22
--- OUTSIDE RECORDS SUMMARY | 2025-01-05 01:37 | XMS_ITS ---
Author Organization [facility] Address [address] [place] [address] Phone Care Team Providers Care Clerical Proofreader Name Role Phone Shashi Patel MD Primary Care Provider [phone] [facility] Status:Enrolled (Active) Start date:11/18/2024 Enrollment date:11/18/2024 Related social drivers of health:Intimate Partner Violence, Social Connections, Alcohol Use, Tobacco Use, Financial Resource Strain,Depression, Stress, Physical Activity, Food Insecurity, Transportation Needs, Housing Stability, Utilities Continued Care and Services Coordination
--- OUTSIDE RECORDS SUMMARY | 2025-01-05 01:37 | XMS_ITS | Patient Health Summary ---
Author Organization [facility] [employer] Address [address] [place] [address] Care Team Providers Care Radial Arm Saw Operator Name Role Phone Unavailable Primary Care Provider Unavailabl e Note from [facility],non-owned Affiliates and Associated Physician Practices is amultiple site organization consisting of ambulatory clinics and hospital sitesin [place], [place], [place] and [place]. This disclosure is being madepursuant to the Care Everywhere program and may not contain all information available regarding this patient. Last updated 18.[facility] [employer] Allergies * Pertussis Vaccine(Anaphylaxis) -High Criticality Medications [...] PM CDT) HCG Qual Urine Negative Negative [facility] POCT TESTING QC Verified Yes Yes [facility] POC T TESTING Urine URINE / Unknown 01/10/2017 1 2:56 PM CDT Ravi Tom DO LAB - POINT OF CAR E ORDERABLES [facility] POCT TESTING [address] [place] [address], [facility] * EKG 12-LEAD (01/10/2017 10:57 AM CDT) Ventricular Rate 61 BPM [facility] MUSE Atrial Rate 61 BPM [facility] MUSE P-R Interval 142 ms [facility] MUSE QRS Duration ms 74 ms [facility] MUSE Q-T Interval ms 432 ms [facility] MUSE QTC Calculation (Bezet) 434 ms [facility] MUSE Calculated P Newton -12 degrees [facility] MUSE Calculated R Newton 23 degrees [facility] MUSE Calculated T Newton 31 degrees [facility] MUSE Interpretation EKG Normal sinus rhythm with sinus arrhythmia Normal ECG No previous ECGs available Confirmed by MD DARYL, JOE Burton ([id number]) on 01/11/2017 8:17:38 AM [facility] MUSE 01/10/2017 10:5 7 AM CDT 01/11/2017 8:17 AM CDT Ravi Tom DO ECG ORDERABLES [facility] MUSE * (ABNORMAL) CBC W AUTO DIFFERENTIAL (01/10/2017 10:57 AM CDT) Only the most recent of4 resultswithin the time period is included. WBC 9.8 4.4 - 10.7 x10E9/L 01/10/2017 11:05 AM CDT [facility] WBC Corrected x10E9/L 01/10/2017 11:05 AM CDT [facility] RBC 4.88 3.80 - 5.20 x10E12/L 01/10/2017 11:05 AM [facility] Hemoglobin 13.1 12.0 - 15.6 gm/dL 01/10/2017 11:05 AM [facility] Hematocrit 40.8 35.9 - 45.5 % 01/10/2017 11:05 AM [facility] MCV 83.6 80.7 - 98.3 fl 01/10/2017 11:05 AM [facility] MCH 26.8 26.7 - 34.0 pg 01/10/2017 11:05 AM [facility] MCHC 32.1 30.8 - 35.9 gm/dL 01/10/2017 11:05 AM [facility] Platelet Count 474(H) 153 - 416 x10E9/L 01/10/2017 11:05 AM [facility] RDW-CV 13.9 12.1 - 14.9 % 01/10/2017 11:05 AM [facility] MPV 9.5 9.4 - 12.9 fl 01/10/2017 11:05 AM [facility] Neutrophils % 54.1 44.0 - 73.0 % 01/10/2017 11:05 AM [facility] Lymphocytes % 36.9 20.0 - 43.0 % 01/10/2017 11:05 AM [facility] Monocytes % 5.0 5.0 - 13.0 % 01/10/2017 11:05 AM [facility] Eosinophils % 2.9 0.0 - 6.0 % 01/10/2017 11:05 AM [facility] Basophils % 0.8 0.0 - 2.0 % 01/10/2017 11:05 AM [facility] Immature Granulocytes 0.3 0 - 1 % 01/10/2017 11:05 AM [facility] Neutrophil Absolute 5.29 2.01 - 7.14 x10E9/L 01/10/2017 11:05 AM [facility] Lymphocytes Absolute 3.61 1.07 - 3.94 x10E9/L 01/10/2017 11:05 AM [facility] Monocytes Absolute 0.49 0.26 - 1.07 x10E9/L 01/10/2017 11:05 AM [facility] Eosinophils Absolute 0.28 0 - 0.47 x10E9/L 01/10/2017 11:05 AM [facility] Basophils Absolute 0.08 0 - 0.08 x10E9/L 01/10/2017 11:05 AM [facility] Immature Granulocytes Absolute 0.03 0.00 - 0.06 x10E9/L 01/10/2017 11:05 AM [facility] nRBC Auto 0 /100 WBC 01/10/2017 11:05 AM [facility] Blood BLOOD SPECIMEN / Unknown 01/10/2017 10:57 AM CDT 01/10/2017 11:02 AM CDT Ravi Tom DO LAB - HEMATOLOGY O RDERABLES [facility] [address] [address] * (ABNORMAL) BASIC METABOLIC PANEL (CALCIUM TOTAL) (01/10/2017 10:57 AM CDT) Only the most recent of2 resultswithin the time period is included. Glucose 102 74 - 106 mg/dL 01/10/2017 11:21 AM [facility] Sodium 140 136 - 145 mmol/L 01/10/2017 11:21 AM [facility] Potassium 3.7 3.5 - 5.1 mmol/L 01/10/2017 11:21 AM [facility] Chloride 111(H) 98 - 107 mmol/L 01/10/2017 11:21 AM [facility] CO2 21(L) 22 - 31 mmol/L 01/10/2017 11:21 AM [facility] Calcium 8.6 8.5 - 10.1 mg/dL 01/10/2017 11:21 AM [facility] Anion Gap 8 8 - 16 mmol/L 01/10/2017 11:21 AM [facility] BUN 11 7 - 21 mg/dL 01/10/2017 11:21 AM [facility] Creatinine 0.92 0.50 - 1.30 mg/dL 01/10/2017 11:21 AM [facility] eGFR by MDRD >60 >60 mL/min/1.7 3m2 01/10/2017 11:21 AM CDT [facility] eGFR by MDRD >60 >60 mL/min/1.7 3m2 01/10/2017 11:21 AM CDT [facility] Blood BLOOD SPECIMEN / Unknown 01/10/2017 10:57 AM CDT 01/10/2017 11:02 AM CDT Ravi Tom DO LAB - CHEMISTRY OR DERABLES Performing Organization Address City/[facility]/ZIP Co de Phone Number [facility] [address] [place] [address] * LAB RESULTS ORDER (03/24/2015 11:04 PM CDT) Narrative 03/24/2015 11:04 PM CDT Ordered by an unspecified provider. Scanned Document LAB - THERAPEUTIC DR CHELSEA MONITORING ORDERABLES * (ABNORMAL) HGB HCT PANEL (03/22/2015 5:47 AM CDT) Hemoglobin 7.8(L) 12.0 - 15.6 gm/dL 03/22/2015 6:02 AM CDT [facility] Hematocrit 24.0(L) 35.9 - 45.5 % 03/22/2015 6:02 AM CDT [facility] Blood BLOOD SPECIMEN / Unknown Lab Venipuncture / Unknown 03/22/2015 5:47 AM CDT 03/22/2015 5:57 AM CDT Manisha Pablo MD LAB - HEMATOLOGY ORDERABLES Performing Organization Address City/[facility]/ZIP Co de Phone Number [facility] [address] [place] [address] * NEURAXIAL BLOCK (03/21/2015 5:14 AM CDT) Narrative Aj Ratliff APRN-CRNA - 03/21/2015 5:14 AM CDT KAREEM Monatlvo 03/21/2015 5:14 AM NEURAXIAL BLOCK Patient Location: [...] Straw, Yellow, Dark Yellow 03/20/2015 9:26 PM [facility] Clarity UA Clear 03/20/2015 9:26 PM [facility] Specific [place] UA 1.014 1.005 - 1.030 03/20/2015 9:26 PM [facility] pH UA 7.0 5.0 - 8.0 pH 03/20/2015 9:26 PM [facility] Protein UA Negative Negative 03/20/2015 9:26 PM T [facility] Blood UA Negative Negative 03/20/2015 9:26 PM [facility] Leukocyte UA Negative Negative 03/20/2015 9:26 PM CDT [facility] Nitrite UA Negative Negative 03/20/2015 9:26 PM [facility] Glucose UA Negative Negative 03/20/2015 9:26 PM [facility] Ketone UA Negative Negative 03/20/2015 9:26 PM [facility] Bilirubin UA Negative Negative 03/20/2015 9:26 PM [facility] Urobilinogen UA 1.0 0.1 - 1.0 EU/dL 03/20/2015 9:26 PM [facility] Urine URINE SPECIMEN OBTAINED BY CLEAN CATCH PROCEDURE / Unknown 03/20/2015 6:41 PM CDT 03/20/2015 9:19 PM CDT Manisha Pablo MD LAB - URINALYSIS ORDERABLES [facility] [address] [facility] [email or web address] [address] * (ABNORMAL) URINALYSIS ROUTINE W/REFLEX TO CULTURE (03/19/2015 9:33 PM CDT) Only the most recent of3 resultswithin the time period is included. Color UA Yellow Straw, Yellow, Dark Yellow 03/19/2015 10:13 PM [facility] Clarity UA Cloudy 03/19/2015 10:13 PM [facility] Specific [place] UA 1.015 1.005 - 1.030 03/19/2015 10:13 PM [facility] pH UA 7.0 5.0 - 8.0 pH 03/19/2015 10:13 PM [facility] Protein UA Negative Negative 03/19/2015 10:13 PM [facility] Blood UA Negative Negative 03/19/2015 10:13 PM [facility] Leukocyte UA Trace(A) Negative 03/19/2015 10:13 PM [facility] Nitrite UA Negative Negative 03/19/2015 10:13 PM [facility] Glucose UA Negative Negative 03/19/2015 10:13 PM [facility] Ketone UA Negative Negative 03/19/2015 10:13 PM [facility] Bilirubin UA Negative Negative 03/19/2015 10:13 PM [facility] Urobilinogen UA 1.0 0.1 - 1.0 EU/dL 03/19/2015 10:13 PM [facility] WBC UA Auto 10-20(A) 0-2, 2-5 # /hpf 03/19/2015 10:13 PM [facility] RBC UA Auto 2-5 0-2, 2-5 # /hpf 03/19/2015 10:13 PM [facility] Epithelial Cell UA Auto 5-10(A) 0-2, 2-5 # /hpf 03/19/2015 10:13 PM CDT [facility] Bacteria UA Auto 2+(A) None seen 03/19/2015 10:13 PM CDT [facility] Hyaline Casts UA Auto 2-5(A) 0 - 2 #/lpf 03/19/2015 10:13 PM CDT [facility] Reflex Status Culture to follow 03/19/2015 10:13 PM CDT [facility] Urine URINE SPECIMEN OBTAINED BY CLEAN CATCH PROCEDURE / Unknown 03/19/2015 9:33 PM CDT 03/19/2015 9:57 PM CDT Dafne Cohen MD LAB - URINALYSIS OR DERABLES Performing Organization Address City/[facility]/ZIP Co de Phone Number [facility] [address] [place] [address] * CULTURE URINE (03/19/2015 9:33 PM CDT) Only the most recent of3 resultswithin the time period is included. [facility] Culture 10,000-50,000 CFU/mL normal urogenital dale PETRA 03/21/2015 6:11 AM CDT [facility] Urine URINE SPECIMEN OBTAINED BY CLEAN CATCH PROCEDURE / Unknown 03/19/2015 9:33 PM CDT 03/19/2015 9:57 PM CDT Dafne Cohen MD LAB - MICROBIOLOGY ORDERABLES Performing Organization Address City/[facility] Co de Phone Number [facility] [address] [place] [address], [facility] [phone] * XR CHEST PA OR AP (12/28/2014 [...] Rapid Negative Negative 12/28/2014 11:05 AM CDT [facility] Microbiology ENTIRE THROAT (SURFACE REGION OF NECK) / Unknown 12/28/2014 10:39 AM CDT 12/28/2014 10:48 AM CDT Narrative [facility] - 12/28/2014 11:05 AM CDT Test has reflexed to a Strep A culture. Saul James MD LAB - MICROBIOLOGY O RDERABLES [facility] [address] [place] [id number] * INFLUENZA A+B ANTIGEN RAPID (12/28/2014 10:39 AM CDT) Influenza A Antigen Negative Negative 12/28/2014 11:05 AM CDT [facility] Influenza B Antigen Negative Negative 12/28/2014 11:05 AM CDT [facility] Microbiology NASOPHARYNGEAL SWAB / Unknown 12/28/2014 10:39 AM CDT 12/28/2014 10:48 AM CDT Narrative [facility] - 12/28/2014 11:05 AM CDT [...] - MICROBIOLOGY O DONNIE Performing Organization Address [facility]/ZIP Co de Phone Number [facility] [address] [place] [address] * CULTURE STREP GROUP A (12/28/2014 10:39 AM CDT) Culture Negative for Beta Hemolytic Streptococcus Group A PETRA 12/30/2014 8:00 AM CDT [facility] Microbiology ENTIRE THROAT (SURFACE REGION OF NECK) / Unknown 12/28/2014 10:39 AM CDT 12/28/2014 10:48 AM CDT Saul James MD LAB - MICROBIOLOGY O DONNIE Performing Organization Address [facility] Co de Phone Number [facility] [address] [place] [address], [facility] * (ABNORMAL) URINALYSIS MICROSCOPIC ONLY W/REFLEX CULTURE (11/19/2014 9:22 PM CONSUMER SAFETY OFFICER) RBC UA 2-5 0-2, 2-5 # /hpf 11/19/2014 10:28 PM [facility] WBC UA 5-10(A) 0-2, 2-5 # /hpf 11/19/2014 10:28 PM [facility] Bacteria UA 1+(A) None Seen 11/19/2014 10:28 PM [facility] Epithelial Cell UA 5-10(A) 0-2, 2-5 11/19/2014 10:28 PM [facility] Mucus UA Trace 11/19/2014 10:28 PM [facility] Yeast UA 1+(A) None Seen 11/19/2014 10:28 PM [facility] Urine URINE SPECIMEN OBTAINED BY CLEAN CATCH PROCEDURE / Unknown 11/19/2014 9:22 PM CONSUMER SAFETY OFFICER 11/19/2014 9:30 PM CONSUMER SAFETY OFFICER Manisha Pablo MD LAB - URINALYSIS ORDERABLES [facility] [address] [place] [address]
--- OUTSIDE RECORDS SUMMARY | 2025-01-05 01:37 | XMS_ITS | Clinical Summary ---
Author Organization [facility] [employer] Address [address] [place] [address] Care Team Providers Care Medical Record Retrieval Specialist Name Role Phone Unavailable Primary Care Provider Unavailabl e Source Comments [facility],non-owned Affiliates and Associated Physician Practices is amultiple site organization consisting of ambulatory clinics and hospital sitesin [place], [place], [place] and [place]. This disclosure is being madepursuant to the Care Everywhere program and may not contain all information available regarding this patient. 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
--- OUTSIDE RECORDS SUMMARY | 2025-01-05 01:37 | XMS_ITS | Referral Summary ---
Author Organization [facility] Address [address] [place] [address] Care Team Providers Care Compensation Specialist Name Role Phone Unavailable Primary Care Provider Unavailabl e Source Comments [facility],non-owned Affiliates and Associated Physician Practices is amultiple site organization consisting of ambulatory clinics and hospital sitesin [place], [place], [place] and [place]. This disclosure is being madepursuant to the Care Everywhere program and may not contain all information available regarding this patient. 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
== END 2025-01-04 22:33 | disposition left against medical advice (07) ==
LOC: ANHED 01-05 01:35
PROVIDERS: Emergency Provider Registered Nurse; PCP Family Medicine
DX: R07.89 Other chest pain (principal); K21.9 Gastro-esophageal reflux disease without esophagitis; Z90.49 Acquired absence of other specified parts of digestive tract
CPT/HCPCS: 99281